=== PATIENT | male | born 1955 | race Caucasian/White ===

== ENCOUNTER 2017-04-05 18:11 | Inpatient (IN) | payer MEDICARE ==
[~2017-04-05] VITALS: Ht 177.8 cm; Wt 135.0 kg
[~2017-04-05 18:11] MED LIST: AMOX875 PO; CYCL5TAB PO
--- NOTE | 2017-04-05 18:22 | PD ---
HPI Chief Complaint: Chest Pain Time Seen by Provider: 18:20 Travel History International Travel<30 days: No Contact w/Intl Traveler<30days: No History of Present Illness HPI Patient is a 61-year-old male presents emergency Department with chest pain intermittent for the past week or so. He states he got fairly constant yesterday. States it's in the middle of his chest wrapping around his entire chest radiating down both of his arms up into his neck. He states when it comes on severe it causes him to feel short of breath and nauseous and sweaty. Cannot think of any alleviating or exacerbating factors. He states that he's never had any heart problems before. Nonsmoker, no history of high blood pressure high cholesterol but has not seen a physician some time. States he had a stress test in the past and was negative. PFSH Past Medical History Depression: No Heart Rhythm Problems: No Cancer: No Cardiac Catheterization: No Cardiovascular Problems: No High Cholesterol: No Congestive Heart Failure: No Diabetes: No Diminished Hearing: No Hepatitis: No Hiatal Hernia: No Psychiatric: No Respiratory: No Thyroid Disease: No PNEUMOCCOCAL Vaccine (Year): 2 Past Surgical History Abdominal Surgery: No Cardiac Surgery: No Cholecystectomy: Yes (09/2011) Coronary Artery Bypass Graft: No Ear Surgery: No Endocrine Surgery: No Eye Surgery: No Genitourinary Surgery: No Gynecologic Surgery: No Oral Surgery: No Pacemaker: No Thoracic Surgery: No Other Surgery: Yes (SEPTOPLASTY WITH BX) Social History Alcohol Use: No Tobacco Use: No Substance Use: No Allergies-Medications (Allergen,Severity, Reaction): Coded Allergies: Codeine (Verified Allergy, Severe, TONGUE SWELLING, 06/27/15) Reported Meds & Prescriptions Reported Meds & Active Scripts Active No Active Prescriptions or Reported Medications Review of Systems Except as stated in HPI: all other systems reviewed are Neg Physical Exam Narrative GENERAL: Well-developed, overweight but in no obvious distress. SKIN: Focused skin assessment warm/dry. HEAD: Atraumatic. Normocephalic. EYES: Pupils equal and round. No scleral icterus. No injection or drainage. ENT: No nasal bleeding or discharge. Mucous membranes pink and moist. NECK: Trachea midline. No JVD. CARDIOVASCULAR: Regular rate and rhythm. No murmur appreciated. No murmurs gallops rubs, 2+ bilateral equal pulses in all 4 extremity's. RESPIRATORY: No accessory muscle use. Clear to auscultation. Breath sounds equal bilaterally. GASTROINTESTINAL: Abdomen soft, non-tender, nondistended. Hepatic and splenic margins not palpable. MUSCULOSKELETAL: No obvious deformities. No clubbing. No cyanosis. No edema. NEUROLOGICAL: Awake and alert. No obvious cranial nerve deficits. Motor grossly within normal limits. Normal speech. PSYCHIATRIC: Appropriate mood and affect; insight and judgment normal. Data Data Last Documented VS Vital Signs Date Time Temp Pulse Resp B/P Pulse Ox O2 Delivery O2 Flow Rate FiO2 04/05/17 22:07 69 18 135/73 98 Room Air Orders Electrocardiogram (04/05/17 18:33) Ckmb (Isoenzyme) Profile (04/05/17 18:33) Complete Blood Count With Diff (04/05/17 18:33) Comprehensive Metabolic Panel (04/05/17 18:33) D-Dimer (04/05/17 18:33) Magnesium (Mg) (04/05/17 18:33) Prothrombin Time / Inr (Pt) (04/05/17 18:33) Act Partial Throm Time (Ptt) (04/05/17 18:33) Troponin I (04/05/17 18:33) Lipase (04/05/17 18:33) Chest, Single Ap (04/05/17 18:33) Ecg Monitoring (04/05/17 18:33) Iv Access Insert/Monitor (04/05/17 18:33) Oximetry (04/05/17 18:33) Oxygen Administration (04/05/17 18:33) Aspirin (Aspirin) (04/05/17 18:45) Sodium Chloride 0.9% Flush (Ns Flush) (04/05/17 18:45) CKMB (04/05/17 18:41) CKMB% (04/05/17 18:41) Nitroglycerin Sl (Nitrostat Sl) (04/05/17 19:15) Heparin Infusion RAHEEM.Q1H (04/05/17 19:06) Heparin-D5w Inj (Heparin-D5w Inj) (04/05/17 19:15) Cbc No Diff, Includes Plts (04/08/17 06:00) Act Partial Throm Time (Ptt) (04/06/17 02:06) Occult Blood (Hemoccult) Stool (04/05/17 19:06) Sodium Chlorid 0.9% 500 Ml Inj (Ns 500 M (04/05/17 19:15) Heparin Inj (Heparin Inj) (04/05/17 19:15) Ct Pulmonary Angiogram (04/05/17 ) Act Partial Throm Time (Ptt) (04/06/17 01:35) Act Partial Throm Time (Ptt) (04/06/17 07:35) Lorazepam Inj (Ativan Inj) (04/05/17 21:00) Troponin I (04/05/17 22:00) Electrocardiogram (04/05/17 22:00) Iohexol 350 Inj (Omnipaque 350 Inj) (04/05/17 22:10) Consult Cardiology (04/05/17 ) Admit Order (Ed Use Only) (04/05/17 ) Admit To Inpatient (04/05/17 ) Vital Signs (Adult) Q4H (04/05/17 22:32) Activity Oob With Assistance (04/05/17 22:32) Watcher Lookout Tower / Telemetry .CONTINUOUS (04/05/17 22:32) Diet Npo (04/06/17 Breakfast) Sodium Chloride 0.9% Flush (Ns Flush) (04/05/17 22:45) Sodium Chloride 0.9% Flush (Ns Flush) (04/06/17 09:00) Basic Metabolic Panel (Bmp) (04/06/17 06:00) Complete Blood Count With Diff (04/06/17 06:00) Creatine Kinase (Cpk) (04/06/17 01:00) Creatine Kinase (Cpk) (04/06/17 07:00) Troponin I (04/06/17 01:00) Troponin I (04/06/17 07:00) Electrocardiogram (04/06/17 01:00) Electrocardiogram (04/06/17 07:00) Naloxone Inj (Narcan Inj) (04/05/17 22:45) Inpatient Certification (04/05/17 ) Aspirin Ec (Ecotrin Ec) (04/06/17 09:00) Nitroglycerin Sl (Nitrostat Sl) (04/05/17 22:45) Labs Laboratory Tests Test 04/05/17 04/05/17 18:41 22:00 White Blood Count 8.0 TH/MM3 Red Blood Count 5.41 MIL/MM3 Hemoglobin 14.8 GM/DL Hematocrit 44.0 % Mean Corpuscular Volume 81.4 FL Mean Corpuscular Hemoglobin 27.5 PG Mean Corpuscular Hemoglobin 33.7 % Concent Red Cell Distribution Width 13.1 % Platelet Count 190 TH/MM3 Mean Platelet Volume 7.8 FL Neutrophils (%) (Auto) 60.0 % Lymphocytes (%) (Auto) 28.2 % Monocytes (%) (Auto) 8.6 % Eosinophils (%) (Auto) 2.0 % Basophils (%) (Auto) 1.2 % Neutrophils # (Auto) 4.8 TH/MM3 Lymphocytes # (Auto) 2.2 TH/MM3 Monocytes # (Auto) 0.7 TH/MM3 Eosinophils # (Auto) 0.2 TH/MM3 Basophils # (Auto) 0.1 TH/MM3 CBC Comment DIFF FINAL Differential Comment Prothrombin Time 10.4 SEC Prothromb Time International 0.9 RATIO Ratio Activated Partial 28.0 SEC Thromboplast Time D-Dimer Quantitative (PE/DVT) 0.77 MG/L FEU Sodium Level 138 MEQ/L Potassium Level 4.1 MEQ/L Chloride Level 104 MEQ/L Carbon Dioxide Level 25.5 MEQ/L Anion Gap 9 MEQ/L Blood Urea Nitrogen 21 MG/DL Creatinine 1.50 MG/DL Estimat Glomerular Filtration 48 ML/MIN Rate Random Glucose 145 MG/DL Calcium Level 8.5 MG/DL Magnesium Level 2.0 MG/DL Total Bilirubin 0.2 MG/DL Aspartate Amino Transf 28 U/L (AST/SGOT) Alanine Aminotransferase 34 U/L (ALT/SGPT) Alkaline Phosphatase 116 U/L Total Creatine Kinase 158 U/L Creatine Kinase MB 3.8 NG/ML Troponin I 0.29 NG/ML 0.42 NG/ML Total Protein 7.3 GM/DL Albumin 3.4 GM/DL Lipase 98 U/L [facility] Medical Decision Making Medical Screen Exam Complete: Yes Emergency Medical Condition: Yes Interpretation(s) EKG shows normal sinus rhythm borderline left axis deviation, normal R-wave progression. No concerning ST segment changes. Intervals within normal limits. The patient does have Q waves in 3 and aVF. This borderline EKG. Differential Diagnosis ACS, IL, PE. Narrative Course Patient roomed emergency department, fairly classic presentation for ACS. Patient troponin elevated to 0.29. Given his classic presentation as well as elevation in troponin this is criteria for heparinization. Patient is low risk for heparinization and will proceed. He was given aspirin, nitroglycerin. Discussed with him that he needs to be admitted to hospital further evaluation of this pain and his elevation of his cardiac marker. Initially reluctant he is ultimately was agreeable. Patient also states that he recently took a trip from [place] in a car approximately 3 weeks ago. Given his shortness of breath symptoms a d-dimer is ordered. We'll proceed with CT PE protocol as this is positive. Creatinine elevation is minimal, I believe the benefits outweigh risks, he was given 500 cc bolus. Nitroglycerin subungual 2 and his chest pain is completely resolved. Is also given a full dose aspirin. Patient was sent for CT PE protocol states she has a history of claustrophobia and is unwilling to proceed with the test. At this time the patient is being treated for presumptive PE. I discussed with him that I certainly could not exclude this is a diagnosis given his lab tests and his history. The patient was discussed with cardiology on-call who agrees with the patient does need a PET exclusion prior to catheterization. I discussed my concerns with the paster operator on-call and discussed with the patient will likely need catheterization paster operator agrees for transfer up to the [facility] hospital. Ultimately the patient was given some Ativan was able to proceed with a CT PE protocol which was negative for PE. The patient's repeat troponin and repeat EKG were done in the emergency department and troponin has increased 0.49. EKG does show no change from the previous EKG. The patient is chest pain-free after nitroglycerin. Discussed with him need for admission to the hospital and he is agreeable. The patient will be transferred [facility] hospital. Patient discussed with Dr. Merritt for admission, patient is stable for floor. Diagnosis Primary Impression: ACS (acute coronary syndrome) Admitting Information Admitting Physician Requests: Admit Scripts No Active Prescriptions or Reported Meds Condition: Stable Goran Madison MD Apr 05, 2017 18:22
[2017-04-05 18:37] VITALS: O2SAT 98
[2017-04-05 18:45] LABS: AUTOMATED NEUTROPHIL # 4.8 TH/MM3 (1.8-7.7); BASOPHIL # 0.1 TH/MM3 (0-0.2); BASOPHIL % 1.2 % (0.0-2.0); EOSINOPHIL # 0.2 TH/MM3 (0-0.4); HEMO FLAGS DIFF FINAL; LYMPH % 28.2 % (9.0-44.0); LYMPHOCYTE # 2.2 TH/MM3 (1.0-4.8); MEAN CELL VOLUME 81.4 FL (80.0-100.0); MEAN CORPUSCULAR HEMOGLOBIN 27.5 PG (27.0-34.0); MEAN CORPUSCULAR HGB CONC 33.7 % (32.0-36.0); MONO % 8.6 % (0.0-8.0); PLATELET COUNT 190 TH/MM3 (150-450); RED BLOOD COUNT 5.41 MIL/MM3 (4.50-5.90); RED CELL DISTRIBUTION WIDTH 13.1 % (11.6-17.2)
[2017-04-05] MEDS ORDERED: SODIUM CHLORIDE 0.9% FLUSH 10 ML FLUSH IVF PRN (18:45)
[2017-04-05] MEDS ORDERED: ASPIRIN 325 MG TAB PO ONE (18:45)
[2017-04-05 18:53] LABS: CHLORIDE 104 MEQ/L (98-107); POTASSIUM 4.1 MEQ/L (3.5-5.1); SODIUM (NA) 138 MEQ/L (136-145)
[2017-04-05 18:57] LABS: ANION GAP 9 MEQ/L (5-15); BICARBONATE 25.5 MEQ/L (21.0-32.0); BLOOD UREA NITROGEN 21 MG/DL (7-18)
[2017-04-05 19:00] LABS: ALT (GPT) 34 U/L (12-78); AST (GOT) 28 U/L (15-37); GLOMERULAR FILTRATION RATE 48 ML/MIN (>89)
[2017-04-05 19:01] LABS: TOTAL BILIRUBIN ADULT 0.2 MG/DL (0.2-1.0)
[2017-04-05 19:03] LABS: ALKALINE PHOSPHATASE 116 U/L (45-117); CREATINE KINASE 158 U/L (39-308)
[2017-04-05 19:15] LABS: CKMB 3.8 NG/ML (0.5-3.6)
[2017-04-05] MEDS ORDERED: SODIUM CHLORID 0.9% 500 ML INJ 500 ML IV ONE (19:15)
[2017-04-05] MEDS ORDERED: HEPARIN SODIUM - IV 10,000 UNITS/10 ML VIAL IV ONE (19:15)
[2017-04-05 19:17] LABS: INTERNATIONAL NORMALIZED RATIO 0.9 RATIO; PROTHROMBIN TIME - PATIENT 10.4 SEC (9.8-11.6)
--- NOTE | 2017-04-05 19:20 | RADRPT ---
EXAM DATE/TIME: 04/05/2017 18:50 [facility] COMPARISON: No previous studies available for comparison. INDICATIONS : Chest pain. MEDICAL HISTORY : Asthma. SURGICAL HISTORY : None. ENCOUNTER: Initial ACUITY: 1 week PAIN SCORE: 8/10 LOCATION: Bilateral chest FINDINGS: A single view of the chest demonstrates the lungs to be symmetrically aerated without evidence of mas s, infiltrate or effusion. The cardiomediastinal contours are unremarkable. Osseous structures are intact. CONCLUSION: No acute disease. Jaden West MD on April 05, 2017 at 19:18 Board Certified Radiologist. This report was verified electronically.
[2017-04-05] MEDS: NITROGLYCERIN 0.4 MG SL 25 TABS/BTL SL SCH ×3 (19:25→19:48)
[2017-04-05] MEDS: HEPARIN-D5W 25,000 U/250 ML 250 ML IV SCH (19:39)
[2017-04-05 19:58] VITALS: BP 118/68; PULSE 83; RESP 18; O2SAT 97
[2017-04-05] MEDS ORDERED: LORazepam 2 MG/ML VIAL IV PUSH ONE (21:00)
[2017-04-05 22:07] VITALS: BP_SYST 135; BP_SYST 35; BP_DIAS 73; PULSE 69; RESP 18; O2SAT 98
[2017-04-05] MEDS ORDERED: IOHEXOL 350 MG/ML 10 ML VIAL (for RAD DIAG) IV ONE (22:10)
--- NOTE | 2017-04-05 22:15 | RADRPT ---
EXAM DATE/TIME: 04/05/2017 21:45 [facility] COMPARISON: No previous studies available for comparison. INDICATIONS : Chest pain. IV CONTRAST: 65 cc Omnipaque 350 (iohexol) IV RADIATION DOSE: 21.71 CTDIvol (mGy) MEDICAL HISTORY : None SURGICAL HISTORY : None. ENCOUNTER: Initial ACUITY: 1 day PAIN SCALE: 8/10 LOCATION: chest TECHNIQUE: Volumetric scanning of the chest was performed using a pulmonary embolism protocol MIP images were re constructed. Using automated exposure control and adjustment of the mA and/or kV according to patien t size, radiation dose was kept as low as reasonably achievable to obtain optimal diagnostic quality images. DICOM format image data is available electronically for review and comparison. Follow-up recommendations for incidentally detected pulmonary nodules are based at a minimum on nodul e size and patient risk factors according to Fleischner Society Guidelines. FINDINGS: PULMONARY ARTERIES: No filling defects are seen in the pulmonary arteries through the segmental level. LUNGS: There is no consolidation or pneumothorax . No concerning pulmonary nodule is visualized. PLEURAE: There is no pleural thickening or pleural effusion. MEDIASTINUM: There is good visualization of the great vessels of the middle mediastinum. No evidence of mediastin al or hilar adenopathy/mass. Mild coronary calcifications. MUSCULOSKELETAL: Within normal limits for patient age. MISCELLANEOUS: The visualized upper abdominal organs demonstrate no acute abnormality. CONCLUSION: 1. Negative for pulmonary embolus. Minimal basal atelectasis or scarring. Mild coronary calcification s. Calcified granulomata in the lungs. Jaden West MD on April 05, 2017 at 22:09 Board Certified Radiologist. This report was verified electronically.
[2017-04-05] MEDS ORDERED: NALOXONE HCL 0.4 MG/ML AMP IV PRN (22:45)
[2017-04-05] MEDS ORDERED: SODIUM CHLORIDE 0.9% FLUSH 10 ML FLUSH IV FLUSH PRN (22:45)
[2017-04-05] MEDS ORDERED: NITROGLYCERIN 0.4 MG SL 25 TABS/BTL SL PRN (22:45)
[2017-04-06] VITALS (11 sets, daily range): BP systolic 117–153; BP diastolic 55–84; PULSE 62–74; RESP 16–19; TEMP 95.7–97.8; O2SAT 96–99
[2017-04-06 01:23] LABS: APTT (PATIENT) 44.7 SEC (24.3-30.1)
--- NOTE | 2017-04-06 02:43 | HHI.HP ---
[facility] Service [facility] Primary Care Physician No Primary Care Physician Admission Diagnosis Acute Cornoary Syndrome Diagnoses: (1) NSTEMI (non-ST elevated myocardial infarction) (2) Unstable angina Chief Complaint: Severe chest pain Travel History International Travel<30 Days: No Contact w/Intl Traveler <30 Da: No Traveled to Known Affected Are: No History of Present Illness Written by Joann Neuamnn, acting as scribe for Dr. Archibald on 04/06/17 at 02:40. The patient was transferred from [place] for management of NSTEMI. Symptoms: reports severe chest pain: felt like "my chest was filled up with air ", radiated down both arms and up left side of neck and into jaw. Accompanied by palpitations, diaphoresis, headache, and nausea without vomiting. The patient said he felt like he was "smothered". He has been having chest pain at least once a day for about 1 - 2 weeks but it has progressively worsened. He was sitting down today when symptoms started. He said he felt near-syncopal today when pain was occurring. The patient recently drove to [place] but stopped every few hours to walk around. Denies recent fever, nausea, vomiting, diarrhea, black or red stool, hematuria, or dysuria. Review of Systems Except as stated in HPI: all other systems reviewed are Neg Past Family Social History Past Medical History Asthma Rheumatoid Arthritis - off methotrexate for 6 months because of adverse effects Gouty Arthritis Osteoarthritis Denies hypertension, diabetes mellitus, CAD, CHF, atrial fibrillation, denies liver or kidney problems, DVT, PE, CVA, seizures, thyroid problems, or cancers. Past Surgical History Knee surgery Back surgery Rhinoplasty Shoulder surgery Hand surgery Toe surgery . Reported Medications Reported Meds & Active Scripts Active No Active Prescriptions or Reported Medications . Allergies: Coded Allergies: Codeine (Verified Allergy, Severe, TONGUE SWELLING, 06/27/15) Active Ordered Medications Current Medications Aspirin (Aspirin) 325 mg ONCE ONCE PO Last administered on 04/05/17t 19:13; Start 04/05/17 at 18:45; Stop 04/05/17 at 18:46; Status DC Sodium Chloride (NS Flush) 2 ml UNSCH PRN IVF FLUSH AFTER USING IV ACCESS; Start 04/05/17 at 18:45; Stop 04/05/17 at 22:40; Status DC Nitroglycerin 0.4 mg 0.4 mg Q5M SL Last administered on 04/05/17 19:48; Start 04/05/17 at 19:15; Stop 04/05/17 at 19:36; Status DC Heparin Sodium/ Dextrose 250 ml @ 0 mls/hr TITRATE IV Last administered on 19:39; Start 04/05/17 at 19:15 Sodium Chloride (NS 500 ml Inj) 500 ml @ 500 mls/hr BOLUS ONCE IV Last administered on 04/05/17 19:38; Start 04/05/17 at 19:15; Stop 04/05/17 at 20:14; Status DC Heparin Sodium (Porcine) (Heparin Inj) 6,000 units ONCE ONCE IV Last administered on 04/05/17 19:19; Start 04/05/17 at 19:15; Stop 04/05/17 at 19:36; Status DC Lorazepam (Ativan Inj) 1 mg ONCE ONCE IV PUSH Last administered on 04/05/17 21 :23; Start 04/05/17 at 21:00; Stop 04/05/17 at 21:02; Status DC Iohexol (Omnipaque 350 Inj) 65 ml STK-MED ONCE IV Last administered on 22:10; Start 04/05/17 at 22:10; Stop 04/05/17 at 22:11; Status DC Sodium Chloride (NS Flush) 2 ml UNSCH PRN IV FLUSH FLUSH AFTER USING IV ACCESS ; Start 04/05/17 at 22:45 Sodium Chloride (NS Flush) 2 ml BID IV FLUSH ; Start 04/06/17 at 09:00 Naloxone HCl (Narcan Inj) 0.4 mg UNSCH PRN IV SEE LABEL COMMENTS; Start at 22:45 Aspirin (Ecotrin Ec) 325 mg DAILY PO ; Start 04/06/17 at 09:00 Nitroglycerin (Nitrostat Sl) 0.4 mg Q5M PRN SL CHEST PAIN; Start 04/05/17 at 22: 45 Family History No family history of CAD/CO that the patient is aware of Social History Tobacco: denies, never smoked Alcohol: social Illicit Drugs: denies . Physical Exam Vital Signs Vital Signs Date Time Temp Pulse Resp B/P Pulse Ox O2 Delivery O2 Flow Rate FiO2 04/06/17 01:24 70 16 97 04/06/17 00:31 62 18 145/74 96 Room Air 04/05/17 22:07 69 18 135/73 98 Room Air 04/05/17 19:58 83 18 118/68 97 Room Air 04/05/17 19:10 99 Room Air 04/05/17 18:37 98 Room Air Physical Exam GENERAL: This is a well-nourished, well-developed patient, in no apparent distress. SKIN: No rashes, ecchymoses or lesions. Cool and dry. HEAD: Atraumatic. Normocephalic. EYES: No scleral icterus. No injection or drainage. ENT: Nose without bleeding, purulent drainage. NECK: Trachea midline. No JVD or lymphadenopathy. CARDIOVASCULAR: Regular rate and rhythm without murmurs, gallops, or rubs. RESPIRATORY: Clear to auscultation. Breath sounds equal bilaterally. No wheezes , rales, or rhonchi. GASTROINTESTINAL: Abdomen soft, non-tender, nondistended. No guarding. MUSCULOSKELETAL: Extremities without clubbing, cyanosis, or edema. No calf tenderness. NEUROLOGICAL: Awake and alert. Motor and sensory grossly within normal limits. Normal speech. . Laboratory Laboratory Tests Test 04/05/17 04/05/17 04/06/17 18:41 22:00 01:05 White Blood Count 8.0 Red Blood Count 5.41 Hemoglobin 14.8 Hematocrit 44.0 Mean Corpuscular Volume 81.4 Mean Corpuscular Hemoglobin 27.5 Mean Corpuscular Hemoglobin 33.7 Concent Red Cell Distribution Width 13.1 Platelet Count 190 Mean Platelet Volume 7.8 Neutrophils (%) (Auto) 60.0 Lymphocytes (%) (Auto) 28.2 Monocytes (%) (Auto) 8.6 Eosinophils (%) (Auto) 2.0 Basophils (%) (Auto) 1.2 Neutrophils # (Auto) 4.8 Lymphocytes # (Auto) 2.2 Monocytes # (Auto) 0.7 Eosinophils # (Auto) 0.2 Basophils # (Auto) 0.1 CBC Comment DIFF FINAL Differential Comment Prothrombin Time 10.4 Prothromb Time International 0.9 Ratio Activated Partial 28.0 44.7 Thromboplast Time D-Dimer Quantitative (PE/DVT) 0.77 Sodium Level 138 Potassium Level 4.1 Chloride Level 104 Carbon Dioxide Level 25.5 Anion Gap 9 Blood Urea Nitrogen 21 Creatinine 1.50 Estimat Glomerular Filtration 48 Rate Random Glucose 145 Calcium Level 8.5 Magnesium Level 2.0 Total Bilirubin 0.2 Aspartate Amino Transf 28 (AST/SGOT) Alanine Aminotransferase 34 (ALT/SGPT) Alkaline Phosphatase 116 Total Creatine Kinase 158 119 Creatine Kinase MB 3.8 Troponin I 0.29 0.42 0.46 Total Protein 7.3 Albumin 3.4 Lipase 98 Result Diagram: 04/05/17 1841 04/05/17 1841 Imaging Last Impressions Chest X-Ray 04/05/17 1833 Signed Impressions: Service Date/Time: Wednesday, April 05, 2017 18:50 - CONCLUSION: No acute disease. Jaden West MD CT Angiography 04/05/17 0000 Signed Impressions: Service Date/Time: Wednesday, April 05, 2017 21:45 - CONCLUSION: 1. Negative for pulmonary embolus. Minimal basal atelectasis or scarring. Mild coronary calcifications. Calcified granulomata in the lungs. Jaden West MD Assessment and Plan Problem List: (1) Unstable angina ICD Code: I20.0 Status: Acute (2) NSTEMI (non-ST elevated myocardial infarction) ICD Code: I21.4 Status: Acute Assessment and Plan 61 y/o with no cardiac history presented to the ED for evaluation of chest pain: NSTEMI Unstable angina - CT pulmonary angiogram negative for PE. Milnial basal atelectasis or scarring noted. Mild coronary calcifications and calcified granulomata in lungs. - Heparin drip - Nitroglycerin 0.4 mg sublingual q5min PRN chest pain - Serial cardiac enzymes and EKGs showed elevated cardiac enzymes trending up and repeat pending this morning - follow results - initial 12-lead EKG personally reviewed with no ischemic changes and sinus rhythm - consult cardiology - assistance appreciated - diet NPO - lipid profile - hba1c Anxiety - Xanax 0.125 mg x one dose PRN anxiety DVT prophylaxis - on heparin drip This note was transcribed by john [Joann Neumann]. I, Dr. Melissa Archibald personally performed the history, physical exam, and medical decision making; and confirmed the accuracy of the information in the transcribed note. Authenticated by Dr. Melissa Archibald on 04/06/17 at 02:40. Discussed Condition With ER physician and patient . Physician Certification 2 Midnight Certification Type: Admission for Inpatient Services Order for Inpatient Services The services are ordered in accordance with Medicare regulations or non- Medicare payer requirements, as applicable. In the case of services not specified as inpatient-only, they are appropriately provided as inpatient services in accordance with the 2-midnight benchmark. Estimated LOS (days): 3 days is the estimated time the patient will need to remain in the hospital, assuming treatment plan goals are met and no additional complications. Post-Hospital Plan: Home Joann Neumann Apr 06, 2017 02:42 Melissa Archibald MD Apr 06, 2017 08:13
[2017-04-06] MEDS ORDERED: ALPRAZolam 0.25 MG TAB PO PRN (02:45)
[2017-04-06 08:24] LABS: AUTOMATED NEUTROPHIL # 4.2 TH/MM3 (1.8-7.7); BASOPHIL % 0.3 % (0.0-2.0); EOSINOPHIL # 0.2 TH/MM3 (0-0.4); EOSINOPHIL % 2.7 % (0.0-4.0); HEMATOCRIT 43.6 % (39.0-51.0); HEMO FLAGS DIFF FINAL; LYMPH % 28.2 % (9.0-44.0); LYMPHOCYTE # 1.9 TH/MM3 (1.0-4.8); MEAN CORPUSCULAR HEMOGLOBIN 27.9 PG (27.0-34.0); MEAN CORPUSCULAR HGB CONC 33.2 % (32.0-36.0); MONO % 8.4 % (0.0-8.0); NEUT % 60.4 % (16.0-70.0); PLATELET COUNT 166 TH/MM3 (150-450); RED BLOOD COUNT 5.19 MIL/MM3 (4.50-5.90); RED CELL DISTRIBUTION WIDTH 13.9 % (11.6-17.2); WHITE BLOOD COUNT 6.9 TH/MM3 (4.0-11.0)
[2017-04-06 08:31] LABS: APTT (PATIENT) 33.5 SEC (24.3-30.1)
[2017-04-06] MEDS ORDERED: NITROGLYCERIN 0.4 MG SL 25 TABS/BTL SL ONE (08:32)
[2017-04-06] MEDS: SODIUM CHLORIDE 0.9% FLUSH 10 ML FLUSH IV FLUSH SCH ×2 (08:37→21:00)
[2017-04-06 08:41] LABS: BICARBONATE 30.9 MEQ/L (21.0-32.0); POTASSIUM 3.9 MEQ/L (3.5-5.1)
[2017-04-06] MEDS ORDERED: ASPIRIN EC 325 MG TABEC PO SCH (09:00)
[2017-04-06] MEDS: SODIUM CHLOR 0.9% 1000 ML INJ 1,000 ML IV SCH (09:30)
[2017-04-06] MEDS ORDERED: NITROGLYCERIN 2% OINT 1 GM PACKET TOPICAL SCH (10:00)
[2017-04-06] MEDS ORDERED: ATORVASTATIN 80 MG TAB PO ONE (10:00)
[2017-04-06] MEDS ORDERED: SENNOSIDES 8.6 MG TAB PO PRN (11:30)
[2017-04-06] MEDS ORDERED: LACTULOSE SYRUP 20 GM/30 ML CUP PO PRN (11:30)
[2017-04-06] MEDS ORDERED: ONDANSETRON HCL 4 MG/2 ML VIAL IVP PRN (11:30)
[2017-04-06] MEDS ORDERED: MAGNESIUM HYDROXIDE SUSP 30 ML CUP PO PRN (11:30)
--- NOTE | 2017-04-06 11:32 | EKG ---
Date Performed: 04/05/2017 Time Performed: 18:20:40 PTAGE: 61 years EKG: Sinus rhythm NORMAL ECG Compared to prior tracing no significant change PREVIOUS TRACING : 06/27/2015 09.33 DOCTOR: Eddy Porras Interpretating Date/Time 04/06/2017 11:30:02
--- NOTE | 2017-04-06 11:38 | HHI.PR ---
Subjective Remarks F/U NSTEMI. CP relieved with sublinguanitroglycerin currently on heparin drip and for cardiac catheterization later today. Seen with family. Discussed with RN. Objective Vitals Vital Signs Date Time Temp Pulse Resp B/P Pulse Ox O2 Delivery O2 Flow Rate FiO2 04/06/17 08:45 119/66 04/06/17 07:30 95.7 72 19 135/65 98 04/06/17 04:30 96.5 70 17 117/55 99 04/06/17 01:50 96.3 73 16 143/80 97 04/06/17 01:24 70 16 97 04/06/17 00:31 62 18 145/74 96 Room Air 04/05/17 22:07 69 18 135/73 98 Room Air 04/05/17 19:58 83 18 118/68 97 Room Air 04/05/17 19:10 99 Room Air 04/05/17 18:37 98 Room Air I/O 04/05/17 04/05/17 04/05/17 04/06/17 04/06/17 04/06/17 07:00 15:00 23:00 07:00 15:00 23:00 Intake Total 500 ml Output Total 500 ml Balance 0 ml Intake Oral 0 ml IV Total 500 ml Output Urine Total 500 ml # Voids 1 # Bowel Movements 0 Result Diagram: 04/06/17 0754 04/06/17 0754 Imaging Last Impressions Chest X-Ray 04/05/17 1833 Signed Impressions: Service Date/Time: Wednesday, April 05, 2017 18:50 - CONCLUSION: No acute disease. Jaden West MD CT Angiography 04/05/17 0000 Signed Impressions: Service Date/Time: Wednesday, April 05, 2017 21:45 - CONCLUSION: 1. Negative for pulmonary embolus. Minimal basal atelectasis or scarring. Mild coronary calcifications. Calcified granulomata in the lungs. Jaden West MD Objective Remarks GENERAL: Well-developed, obese in no distress SKIN: Warm and dry. HEAD: Atraumatic. Normocephalic. EYES: Pupils equal and round. No scleral icterus. No injection or drainage. ENT: No nasal bleeding or discharge. Mucous membranes pink and moist. NECK: Trachea midline. No JVD. CARDIOVASCULAR: Regular rate and rhythm. RESPIRATORY: No accessory muscle use. Clear to auscultation. Breath sounds equal bilaterally. GASTROINTESTINAL: Abdomen soft, non-tender, nondistended. MUSCULOSKELETAL: Extremities without clubbing, cyanosis but with bilateral lower extremity pitting edema. No obvious deformities. NEUROLOGICAL: Awake and alert. No obvious cranial nerve deficits. Motor grossly within normal limits. Five out of 5 muscle strength in the arms and legs. Normal speech. PSYCHIATRIC: Appropriate mood and affect; insight and judgment normal. A/P Problem List: (1) NSTEMI (non-ST elevated myocardial infarction) ICD Code: I21.4 Status: Acute Assessment and Plan 61 y/o with no cardiac history presented to the ED for evaluation of chest pain: NSTEMI Unstable angina - CT pulmonary angiogram negative for PE. Minimal basal atelectasis or scarring noted. Mild coronary calcifications and calcified granulomata in lungs. - Heparin drip - Nitroglycerin 0.4 mg sublingual q5min PRN chest pain. Agree with Nitropaste and start Lopressor. - 12-lead EKG personally reviewed with no ischemic changes and sinus rhythm - For cardiac catheterization - diet NPO - Follow up lipid profile - Follow up ha1c - Risk factor modification - Check EF patient with bilateral lower extremity edema Anxiety - Xanax 0.125 mg x one dose PRN anxiety Chronic medical conditions of asthma, rheumatoid arthritis, gouty and osteoarthritis DVT prophylaxis - on heparin drip Connor Gurrola MD Apr 06, 2017 11:38
--- NOTE | 2017-04-06 11:45 | EKG ---
Date Performed: 04/06/2017 Time Performed: 01:05:25 PTAGE: 61 years EKG: Normal Sinus rhythm Possible old inferior infarct NORMAL ECG PREVIOUS TRACING : 04/05/2017 22.07 No change from the prior tracing. DOCTOR: Eddy Porras Interpretating Date/Time 04/06/2017 11:45:34
--- NOTE | 2017-04-06 11:45 | EKG ---
Date Performed: 04/05/2017 Time Performed: 22:07:37 PTAGE: 61 years EKG: Normal Sinus rhythm Possible old inferior infarct PREVIOUS TRACING : 04/05/2017 18.20 DOCTOR: Eddy Porras Interpretating Date/Time 04/06/2017 11:45:09
[2017-04-06] MEDS: ACETAMINOPHEN 325 MG TAB PO PRN ×2 (13:31→21:35)
[2017-04-06 13:33] LABS: HDL CHOLESTEROL 42.4 MG/DL (40.0-60.0); LDL CHOLESTEROL 172 MG/DL (0-99)
--- NOTE | 2017-04-06 14:04 | MB ---
cc: GLENN LEHMAN DATE OF CONSULTATION 04/06/2017 REASON FOR CONSULTATION Mr. Burch is a 61-year-old white male who was transferred from [facility] for a non-ST elevation myocardial function. He developed severe substernal chest discomfort radiating down both arms left side of the neck and jaw. He also has had palpitations, diaphoresis and nausea. He felt short of breath. He has recurrent pain and swelling with relief with sublingual nitroglycerin. He has had elevated cardiac enzymes consistent with non-ST elevation myocardial function. PAST MEDICAL HISTORY Positive for: 1. Osteoarthritis 2. Gout 3. Rheumatoid arthritis 4. No history of hypertension, diabetes mellitus, coronary disease, congestive heart failure, atrial fibrillation or CVA. PAST SURGICAL HISTORY 1. History of knee surgery 2. Back surgery 3. Rhinoplasty 4. Shoulder surgery 5. Hand surgery 6. Toe surgery MEDICATIONS Include 1. Aspirin 2. Nitroglycerin 3. Heparin ALLERGIES CODEINE SOCIAL HISTORY The patient does not smoke. He drinks alcohol socially. FAMILY HISTORY Negative for heart disease. REVIEW OF SYSTEMS Otherwise negative. PHYSICAL EXAMINATION Blood pressure 119/56, pulse 72 and regular. HEENT: Negative. NECK: 2+ carotid upstrokes. No bruits. LUNGS: Clear. HEART: Regular with no murmur, gallop or rub. ABDOMEN: Soft, no bruits. EXTREMITIES: Negative edema. 2+ distal pulses. NEUROLOGIC: Grossly intact. EKG was reviewed and showed normal sinus rhythm, left axis and inferior Q-waves. No acute changes. LABORATORY DATA Hemoglobin 14.5, potassium 3.9, creatinine 1.1, troponin 0.29, 0.42, 0.46 and 0.26, CK 158, 119 and 109. DIAGNOSIS 1. Bgc-LB-wgcogzopq myocardial function 2. Rheumatoid arthritis 3. Asthma DISPOSITION Mr. Burch has been ruled in for myocardial infarction by enzymes. He will be scheduled for cardiac catheterization and coronary intervention if necessary today. He understands the risks and benefits, and wishes to proceed. We will continue therapy with heparin, nitroglycerin and aspirin. MD EMETERIO Bruce/NORTH /9:43 AM /12:24 PM [email or web address]
[2017-04-06 16:33] LABS: APTT (PATIENT) 37.1 SEC (24.3-30.1)
[2017-04-06] MEDS: NITROGLYCERIN 2% OINT 1 GM PACKET TOPICAL SCH ×2 (16:42→21:39)
[2017-04-06] MEDS ORDERED: NITROGLYCERIN INJ 5 ML ONE (16:49)
[2017-04-06] MEDS ORDERED: HEPARIN-NS/PF INJ 500 ML ONE (16:49)
[2017-04-06] MEDS ORDERED: MIDAZOLAM HCL 2 MG/2 ML VIAL ONE ×2 (16:50→17:53)
[2017-04-06 16:53] LABS: HEMOGLOBIN A1b 1.9 %; HEMOGLOBIN Ao 84.7 %; HEMOGLOBIN P3 3.9 %
[2017-04-06] MEDS: HEPARIN-D5W 25,000 U/250 ML 250 ML IV SCH (17:20)
[2017-04-06] MEDS ORDERED: IOHEXOL 350 MG/ML 50 ML BTL (for Cath Lab) OTHER ONE (17:44)
[2017-04-06] MEDS ORDERED: IOHEXOL 350 MG/ML 100 ML BTL (for Cath Lab) OTHER ONE (17:44)
[2017-04-06] MEDS ORDERED: HEPARIN-D5W 25,000 U/250 ML 250 ML ONE (18:10)
--- NOTE | 2017-04-06 18:29 | CATHPROC ---
[facility] HIS Report Study Information Study Number Admission Scheduled Start Study Start [id number] Apr 05 2017 10:39PM 04/06/2017 Apr 06 2017 4:53PM [facility] Cardiac Catheterization Admit Source Facility Department Emergency department [facility] - Rn Prior Authorization Physician and Clinical Staff Initial Jeremias Cardoza Wheelchair Van Operator First Responder Caitlyn Veloz BSRN Recorder Gina Ocasio,RT(R) Recorder Chapis Prescott,RT(R) (BS) Scrub Evens Ron,RT(R) Procedures Performed Procedure Location (Site) Vessel Name Angiogram LV LV Ventricle Coronary Angiograms LCA Left Coronary Coronary Angiograms RCA Right Coronary Coronary Angiograms ACE ACE L Heart Cath Equipment Time Plant Operator Control Room Operator Description Size Mfg Part Number Used/Scraped TRANSDUCER, TERESSA [id number] 17:32 appAttach LLAMAS * Used W/STOCKCOCK *[id number] *[id number] *[id number] *[id number] 18:06 DAIG/ST. GIA MEDICAL ANGIOSEAL, FR6 VIP FR 6 Used *[id number] 17:32 SoftoCoupon INDUSTRIES PACK, CCL CUSTOM * Used *[id number] 17:32 SoftoCoupon PACER PEN, SKIN DUAL W/ RULER * Used *[id number] 17:32 Veebeam WIRE, 3MMJ .035 180CM 180CM Used *[id number] PROBE COVER, STERILE [id number] 17:32 SavingStar MEDICAL * Used ULTRASOUND W/ GEL *[id number] 17:32 NAMIC MANIFOLD, 4 PORT * Used *[id number] 17:32 NAMIC TUBING, HIGH PRESSURE 48" 48" Used *[id number] 17:32 NYCOMED OMNIPAQUE, 350 MG, 150ML 150ML [id number] Used [id number] 17:32 LESTER MEDICAL BLANKET,WARM AIR CCL * Used *[id number] 17:32 TERUMO MEDICAL SHEATH, FR5 TERUMO (10CM) FR 5 Used *[id number] History: Current Medications Medication Dosage/Unit Route Frequency Last Date/Time Taken ASA 325 mg Oral 04/06/2017 NTG SL HEPARIN LIPITOR 80 mg 04/06/2017 NTG Patch History: Allergies Allergy Reaction Codeine TONGUE SWELLING History: Risk Factors Family History of Hypertension Dyslipidemia Previous DC Previous Heart Failure Premature CAD No No No No No Prior Valve Prior PCI Prior CABG Surgery No No No Cerebrovascular Peripheral Artery Chronic Lung On Dialysis Diabetes Disease Disease Disease No No No No No History: Symptoms/Diagnosis Selection Items Chest pain Palpitations History: Stress Tests Stress or Imaging Studies Performed No History: Other Current Smoker No Labs Hgb (g/dl) Hct (%) RBC (MIL/MM3) WBC (l/cumm) Platelets (thousands) 11.60-17.00 35.00-51.00 4.00-5.90 4.00-11.00 150.00-450.00 14.5 43.6 5.1 6.9 190 Glucose (mg/dl) BUN (mg/dl) Creatinine (mg/dl) BUN:Creatinine (1:x) 74.00-106.00 7.00-18.00 0.50-1.30 10.00-20.00 102 16 1.1 14.5 Na (meq/l) K (meq/l) Cl (meq/l) 136.00-145.00 3.50-5.10 98.00-107.00 138 4.1 104 INR (PTT:PT) 0.90-1.10 0.9 Troponin I (ng/ml) CPK-MB (ng/ML) 0.02-0.05 0.50-3.60 0.26 Not Drawn Medication Medication Total Dose (Bolus/Oral) Medication Total Dosage/Unit 1% XYLOCAINE 20 mL FENTANYL 100 mcg VERSED 3 mg Medications (Bolus/Oral) Medication Time Given Dosage/Unit Administered By Reason VERSED 04/06/2017 5:40:18 PM 2 mg Rittenour, Caitlyn 2 mg VERSED given in lab by Caitlyn Veloz BSRN in Right Antecubital via Peripheral IV. FENTANYL 04/06/2017 5:40:19 PM 50 mcg Rittenour, Caitlyn 50 mcg FENTANYL given in lab by Caitlyn Veloz BSRN in Right Antecubital via Peripheral IV. FENTANYL 04/06/2017 5:45:10 PM 50 mcg Rittenour, Caitlyn 50 mcg FENTANYL given in lab by Caitlyn Veloz BSRN in Right Antecubital via Peripheral IV. 1% XYLOCAINE 04/06/2017 5:45:21 PM 20 mL Quadrat, [place] 20 mL 1% XYLOCAINE given in lab by Jeremias Miller in Right Groin via Subcutaneous. VERSED 04/06/2017 5:54:39 PM 1 mg Caitlyn Veloz 1 mg VERSED given in lab by Caitlyn Veloz BSRN in Right Antecubital via Peripheral IV. Medication (Drip) Medication Time Given Dosage/Unit Concentration/Unit Diluent (ml) Solution HEPARIN DRIP 04/06/2017 6:13:29 PM 1000 units/hr 74590 units 250 D5W 1000 units/hr HEPARIN DRIP given in lab by Caitlyn Veloz BSRN in Right Antecubital via Peripheral IV. Pump/Drip Flow = 10 ml/hr [place] [address] units in 250 ml. HEPARIN DRIP STOPPED 04/06/2017 5:00:24 PM 0 units/hr 0 0 units/hr HEPARIN DRIP STOPPED given by Caitlyn Veloz BSRN. Pump/Drip Flow = 0 ml/hr using [Solu tion Name]. IV Solutions 04/06/2017 5:26:31 PM 0 mL (IV) 500 NaCl .9 IV Solutions given in lab by Caitlyn Veloz BSRN in Right Antecubital via Peripheral IV. Pump/Drip Flow = 100 ml/hr using NaCl .9. Initial Case Assessment Cardiovascular HR Rhythm NIBP Chest Pain 74 nsr 135/83 1 Edema Present Skin color Skin None Normal Warm Circulatory - Right Pulses Dorsalis Pedis Femoral 2 1 Scale (0,1,2,3,4,d) Circulatory - Left Pulses Dorsalis Pedis Femoral 2 1 Scale (0,1,2,3,4,d) Neurological State Oriented to time-place- Alert Moves all extremities person Respiration - General Respiration Rate SpO2 (%) O2 (lpm) (B/min) 11 100 2 Chronological Log Time Study Chronological Log 0 units/hr HEPARIN DRIP STOPPED given by Caitlyn Veloz BSRN. Pump/Drip Flow = 0 ml/hr using [Solution 17:00:24 Name]. 17:11:04 Patient arrived via Bed. 17:11:05 Patient Name, D.O.B, / Armband Verified By R.N. 17:11:07 Consent signed by the physician and the patient and verified by the Rn Prior Authorization staff. 17:11:08 Pre-op and post- op instructions given; patient acknowledges understanding of instructions. 17:11:20 Patient has been NPO for More than 6Hrs. 17:11:21 Skin Breakdown- none per patient 17:11:22 Patient Warmer Placed on the Table. 17:12:17 Disposable Defibrillator Pads Placed On Patient. 17:15:30 A # 20 IV was noted in the Hand (right). Grade = 0 17:15:31 A # 20 IV was noted in the Hand (right). Grade = 0 17:16:37 History and physical on the chart or being dictated. Vitals capture started with the following parameters, Patient=Adult, Interval=5 min, Initial Pr rujzrw=560 mmHg, 17:16:57 Deflation Rate=5 mmHg, Cuff placed on Right Arm 17:17:33 HR=73 bpm, VTYN=421/81 mmhg, IxL0=055 %, Resp=12 B/min Assessment: Initial Case, HR=74 BPM, Rhythm=nsr, DLCE=483/83 mmhg, Chest Pain=1, Edema=None, Co kieran=Normal, Skin = Warm Right Pulses: Paul Ped=2, Femoral=1 17:17:41 Left Pulses: Paul Ped=2, Femoral=1 Neurological: State=Alert, Ox3, REECE Respiration: Resp=11 B/min, ZzE4=932 %, O2=2 lpm 17:22:35 HR=82 bpm, MASA=999/83 mmhg, SpO2=98.0 %, Resp=12 B/min 17:25:20 Bilateral groins prepped with 2% chlorhexidine, and draped after a 3 min. waiting time. IV Solutions given in lab by Caitlyn Veloz BSRN in Right Antecubital via Peripheral IV. Pum p/Drip Flow = 100 ml/hr 17:26:31 using NaCl .9. 17:27:36 HR=74 bpm, VFYU=447/85 mmhg, SpO2=99.0 %, Resp=10 B/min 17:28:50 MD paged 17:29:00 MD responded 17:32:39 HR=73 bpm, HNHX=553/78 mmhg, SpO2=99.0 %, Resp=9 B/min 17:37:03 Pressure channel 1 zeroed. 17:37:36 Reference ECG taken 17:37:40 HR=73 bpm, QZHZ=934/77 mmhg, IqI7=206.0 %, Resp=7 B/min 17:39:50 MD arrived. 17:40:18 2 mg VERSED given in lab by Caitlyn Veloz BSRN in Right Antecubital via Peripheral IV. 17:40:19 50 mcg FENTANYL given in lab by Caitlyn Veloz BSRN in Right Antecubital via Peripheral IV. 17:42:43 HR=78 bpm, RMFH=475/74 mmhg, RaL3=417.0 %, Resp=14 B/min Time Out. Correct patient, correct procedure,correct physician, ,power injector loaded or not l oaded with contrast with 17:44:19 surgical team present. Time Out Concurred by MD, individual staff and PSYCHOMETRIC EXAMINER in procedure 17:45:04 Case Start 17:45:10 50 mcg FENTANYL given in lab by Caitlyn Veloz BSRN in Right Antecubital via Peripheral IV. 17:45:21 20 mL 1% XYLOCAINE given in lab by Jeremias Miller in Right Groin via Subcutaneous. 17:46:42 Access site was Right Femoral Artery using ultrasound. 17:47:04 A SHEATH, FR5 TERUMO (10CM) FR 5 was advanced into the Fem Art (right) using the Percutaneo us technique. 17:47:42 HR=71 bpm, PSJA=782/76 mmhg, SpO2=99.0 %, Resp=9 B/min 17:47:42 Activated Clotting Time Drawn A PIGTAIL ANG. INFINITI CATHETER FR 5 was advanced over a wire. OMNIPAQUE, 350 MG, 150ML 150ML was used 17:49:10 for injections. Recorded Pressure: LV, HR=71, Condition=Condition 1 17:50:15 (Left Ventricle) LV 123/15/22 17:50:47 The LV was injected at 10 cc/sec for a total of 30. OMNIPAQUE, 350 MG, 150ML 150ML used. Recorded Pressure: LV, Ao, HR=75, Condition=Condition 1 17:52:09 (Left Ventricle) LV 124/11/21, (Aorta) Ao 128/74/98 17:52:33 ACT (Normal Range 90-180) = 111 17:52:41 HR=76 bpm, NNRH=583/76 mmhg, Resp=12 B/min 17:52:50 Catheter was removed A JL 4.0 INFINITI CATHETER FR 5 was advanced over a wire. OMNIPAQUE, 350 MG, 150ML 150ML was us ed for 17:52:53 injections. Recorded Pressure: Ao, HR=75, Condition=Condition 1 17:53:38 (Aorta) Ao 127/77/100 17:54:11 The LCA was injected and visualized at various angles. OMNIPAQUE, 350 MG, 150ML 150ML used . 17:54:39 1 mg VERSED given in lab by Caitlyn Veloz BSRN in Right Antecubital via Peripheral IV. 17:56:17 Catheter was removed A AR MOD INFINITI CATHETER FR 5 was advanced over a wire. OMNIPAQUE, 350 MG, 150ML 150ML was u sed for 17:57:18 injections. 17:57:42 HR=73 bpm, PBTL=251/75 mmhg, SpO2=95.0 %, Resp=12 B/min 17:58:46 The RCA was injected and visualized at various angles. OMNIPAQUE, 350 MG, 150ML 150ML use d. 17:59:16 Catheter was removed A AR MOD INFINITI CATHETER FR 5 was advanced over a wire. OMNIPAQUE, 350 MG, 150ML 150ML was u sed for 17:59:21 injections. 18:00:31 The ACE was injected and visualized at various angles. OMNIPAQUE, 350 MG, 150ML 150ML use d. 18:02:41 HR=87 bpm, WNYO=325/85 mmhg, SpO2=94.0 %, Resp=14 B/min 18:03:50 An injection in the Fem Art (right) was made through the SHEATH, FR5 TERUMO (10CM) FR 5. 18:05:33 ANGIOSEAL, FR6 VIP FR 6 placement in the Fem Art (right) 18:07:09 Case End 18:07:14 Sterile dressing applied to site 18:07:20 No case complications noted. 18:07:42 HR=89 bpm, NIYE=464/79 mmhg, SpO2=99.0 %, Resp=27 B/min 18:08:27 A Left Heart Cath was performed. 1000 units/hr HEPARIN DRIP given in lab by Caitlyn Veloz BSRN in Right Antecubital via Per ipheral IV. Pump/Drip 18:13:29 Flow = 10 ml/hr [place] [address] units in 250 ml. 18:20:28 [facility] Study - Contrast Media Used In Study Contrast Total Opened (mL) Total Used (mL) Total Wasted (mL) Omnipaque 130 130 0 End Study - Maximum Contrast Load Max Contrast Load (mL) 613.6 End Study - Radiation Exposure Fluoro Time (minutes) 2.2 End Study - Patient Disposition Complications Transferred To Interventional Outcome No Telemetry Bed No attempt made
[2017-04-06] MEDS: DOCUSATE SODIUM 50 MG/SENNA 8.6 MG TAB PO SCH (21:00)
[2017-04-06] MEDS ORDERED: METOPROLOL TARTRATE 25 MG TAB PO SCH (21:00)
[2017-04-06] MEDS: METOPROLOL TARTRATE 25 MG TAB PO SCH (21:38)
[2017-04-07] VITALS (25 sets, daily range): BP systolic 125–151; BP diastolic 59–84; PULSE 58–98; RESP 16–18; TEMP 97.6–98.3; O2SAT 96–98
[2017-04-07 01:57] LABS: APTT (PATIENT) 34.2 SEC (24.3-30.1)
[2017-04-07] MEDS: NITROGLYCERIN 2% OINT 1 GM PACKET TOPICAL SCH ×4 (03:46→21:46)
[2017-04-07] MEDS: SODIUM CHLOR 0.9% 1000 ML INJ 1,000 ML IV SCH ×2 (03:49→15:30)
[2017-04-07 06:47] LABS: MEAN CELL VOLUME 83.9 FL (80.0-100.0); MEAN CORPUSCULAR HEMOGLOBIN 28.1 PG (27.0-34.0); MEAN CORPUSCULAR HGB CONC 33.5 % (32.0-36.0); PLATELET COUNT 155 TH/MM3 (150-450); RED BLOOD COUNT 4.88 MIL/MM3 (4.50-5.90); RED CELL DISTRIBUTION WIDTH 13.8 % (11.6-17.2); REVIEW FLAG FINAL; WHITE BLOOD COUNT 7.8 TH/MM3 (4.0-11.0)
[2017-04-07 06:56] LABS: APTT (PATIENT) 35.6 SEC (24.3-30.1); PROTHROMBIN TIME - PATIENT 10.9 SEC (9.8-11.6)
[2017-04-07 07:12] LABS: BICARBONATE 30.1 MEQ/L (21.0-32.0); MAGNESIUM 2.1 MG/DL (1.5-2.5)
[2017-04-07 07:14] LABS: HDL CHOLESTEROL 38.7 MG/DL (40.0-60.0)
[2017-04-07] MEDS ORDERED: METO25TA3 PO (07:46)
[2017-04-07] MEDS ORDERED: ATOR1TAB18 PO (07:46)
[2017-04-07] MEDS ORDERED: NITR0.4S SL (07:46)
[2017-04-07] MEDS ORDERED: ASPI-99 PO (07:46)
--- NOTE | 2017-04-07 07:46 | HHI.DCPOC ---
Discharge Care Plan Diagnosis: (1) NSTEMI (non-ST elevated myocardial infarction) Your Health Problems Are: Difficulty with ADL Exercise Tolerance Goals to Promote Your Health * To prevent worsening of your condition and complications * To maintain your health at the optimal level Directions to Meet Your Goals Take your medications as prescribed Follow your dietary instruction Follow activity as directed Keep your appointments as scheduled Take your immunizations and boosters as scheduled If your symptoms worsen call your PCP, if no PCP go to Urgent Care Center or Emergency Room Smoking is Dangerous to Your Health. Avoid second hand smoke Call the 24-hour hour crisis hotline for domestic abuse at Connor Gurrola MD Apr 07, 2017 07:46
[2017-04-07] MEDS: DOCUSATE SODIUM 50 MG/SENNA 8.6 MG TAB PO SCH (08:12)
[2017-04-07] MEDS: SODIUM CHLORIDE 0.9% FLUSH 10 ML FLUSH IV FLUSH SCH ×2 (09:00→21:46)
--- NOTE | 2017-04-07 09:02 | HHI.PR ---
Subjective Remarks Follow-up CAD. Tolerated cardiac catheterization which revealed multivessel CAD cardio vascular surgery consulted. Patient denies chest pain but complains of severe frontal throbbing headache for the last 3 days worse after nitroglycerin. No fever, visual change, neck pain, focal weakness and trauma. States he is unable to sleep because of headache. He is also intolerant of oxycodone which causes rebound headaches. Discussed with RN Objective Vitals Vital Signs Date Time Temp Pulse Resp B/P Pulse Ox O2 Delivery O2 Flow Rate FiO2 04/07/17 08:08 98.3 68 17 125/59 97 04/07/17 07:00 73 04/07/17 06:00 69 04/07/17 05:00 64 04/07/17 04:00 68 04/07/17 04:00 97.6 68 16 137/80 98 04/07/17 03:00 79 04/07/17 02:00 62 04/07/17 01:00 62 04/07/17 00:00 97.9 60 16 145/75 98 04/07/17 00:00 60 04/06/17 23:00 74 04/06/17 22:00 74 04/06/17 21:00 67 04/06/17 20:00 97.8 71 16 153/84 99 04/06/17 20:00 70 04/06/17 19:00 65 04/06/17 11:31 96.3 71 18 128/74 98 I/O 04/06/17 04/06/17 04/06/17 04/07/17 04/07/17 04/07/17 06:59 14:59 22:59 06:59 14:59 22:59 Intake Total 500 ml 1372 ml Output Total 500 ml 700 ml Balance 0 ml 672 ml Intake Oral 0 ml 240 ml IV Total 500 ml 1132 ml Output Urine Total 500 ml 700 ml # Voids 1 2 # Bowel Movements 0 0 Result Diagram: 04/07/1715 04/07/1715 Imaging Last Impressions Chest X-Ray 04/05/17 1833 Signed Impressions: Service Date/Time: Wednesday, April 05, 2017 18:50 - CONCLUSION: No acute disease. Jaden West MD CT Angiography 04/05/17 0000 Signed Impressions: Service Date/Time: Wednesday, April 05, 2017 21:45 - CONCLUSION: 1. Negative for pulmonary embolus. Minimal basal atelectasis or scarring. Mild coronary calcifications. Calcified granulomata in the lungs. Jaden West MD Objective Remarks GENERAL: Well-developed, obese in distress due to headache HEAD: Atraumatic. Normocephalic. EYES: Pupils equal and round. No scleral icterus. No injection or drainage. CARDIOVASCULAR: Regular rate and rhythm. RESPIRATORY: No accessory muscle use. Clear to auscultation. Breath sounds equal bilaterally. GASTROINTESTINAL: Abdomen soft, non-tender, nondistended. MUSCULOSKELETAL: Extremities without clubbing, cyanosis but with bilateral lower extremity pitting edema. No obvious deformities. NEUROLOGICAL: Awake and alert. No obvious cranial nerve deficits. Motor grossly within normal limits. Five out of 5 muscle strength in the arms and legs. Normal speech. Procedures Cardiac catheterization A/P Problem List: (1) NSTEMI (non-ST elevated myocardial infarction) ICD Code: I21.4 Status: Acute Assessment and Plan 61 y/o with no cardiac history presented to the ED for evaluation of chest pain: NSTEMI. Cardiac catheterization revealed multivessel CAD involving left main, LAD, diagonal and ramus. Chest pain-free continue aspirin, Lipitor, Lopressor and Nitropaste. Also on heparin drip. A1c 5.8. LDL 172. Risk factor modification. Follow-up cardiothoracic surgery recommendations. Also check echocardiogram with borderline EF Headache. He is nonfocal. Obtain head CT patient on heparin drip and aspirin. Neurochecks. Fioricet and Tylenol. Anxiety - Xanax 0.125 mg x one dose PRN anxiety Chronic medical conditions of asthma, rheumatoid arthritis, gouty and osteoarthritis. Stable DVT prophylaxis - on heparin drip Discharge Planning Discharge when cleared by cardio and cardiac thoracic surgery Connor Gurrola MD Apr 07, 2017 09:02
[2017-04-07] MEDS: METOPROLOL TARTRATE 25 MG TAB PO SCH ×2 (09:24→21:46)
[2017-04-07] MEDS: ASPIRIN EC 81 MG TABEC PO SCH (09:24)
[2017-04-07 13:20] LABS: APTT (PATIENT) 33.1 SEC (24.3-30.1)
[2017-04-07] MEDS ORDERED: CHLORHEXIDINE GLUCONATE 4% SOLN 120 ML BTL TOPICAL SCH (14:00)
[2017-04-07] MEDS ORDERED: CEFAZOLIN INJ 500 MG in SODIUM CHLORIDE 0.9% IRR BTL 500 ML IRRIGATION SCH (14:00)
[2017-04-07] MEDS ORDERED: SODIUM CHLORIDE 0.9% FLUSH 10 ML FLUSH IV FLUSH PRN (14:00)
[2017-04-07] MEDS ORDERED: PAPAVERINE INJ 60 MG, NITROGLYCERIN INJ 100 MCG, DILTIAZEM INJ 100 MG in SODIUM CHLORID... IRRIGATION SCH (14:00)
[2017-04-07] MEDS ORDERED: METOPROLOL TARTRATE 25 MG TAB PO SCH (14:00)
[2017-04-07] MEDS ORDERED: ceFAZolin 2 GM PREMIX 50 ML IV SCH (14:00)
[2017-04-07] MEDS ORDERED: INSULIN REGULAR (IV INFUSION) 100 UNITS in SODIUM CHLORIDE 0.9% INJ 100 ML IV SCH (14:00)
--- NOTE | 2017-04-07 14:14 | PD.CAR.PN ---
CVT Progress Note Subjective/Hospital Course: pt seen and evaluated full note dictated / sts data discussed with pt RISK SCORES About the STS Risk Calculator Procedure: CAB Only Risk of Mortality: 0.512% Morbidity or Mortality: 8.32% Long Length of Stay: 2.348% Short Length of Stay: 63.107% Permanent Stroke: 0.472% Prolonged Ventilation: 5.5% DSW Infection: 0.315% Renal Failure: 1.758% Reoperation: 3.19% Objective: Vital Signs Date Time Temp Pulse Resp B/P Pulse Ox O2 Delivery O2 Flow Rate FiO2 04/07/17 13:00 86 04/07/17 12:00 89 04/07/17 11:00 69 04/07/17 11:00 98.0 98 17 149/81 98 04/07/17 10:00 58 04/07/17 09:00 78 04/07/17 08:08 98.3 68 17 125/59 97 04/07/17 08:00 81 04/07/17 07:00 73 04/07/17 06:00 69 04/07/17 05:00 64 04/07/17 04:00 68 04/07/17 04:00 97.6 68 16 137/80 98 04/07/17 03:00 79 04/07/17 02:00 62 04/07/17 01:00 62 04/07/17 00:00 97.9 60 16 145/75 98 04/07/17 00:00 60 04/06/17 23:00 74 04/06/17 22:00 74 04/06/17 21:00 67 04/06/17 20:00 97.8 71 16 153/84 99 04/06/17 20:00 70 04/06/17 19:00 65 Labs: Laboratory Tests Test 04/07/17 04/07/17 06:15 11:12 White Blood Count 7.8 TH/MM3 (4.0-11.0) Red Blood Count 4.88 MIL/MM3 (4.50-5.90) Hemoglobin 13.7 GM/DL (13.0-17.0) Hematocrit 41.0 % (39.0-51.0) Mean Corpuscular Volume 83.9 FL (80.0-100.0) Mean Corpuscular Hemoglobin 28.1 PG (27.0-34.0) Mean Corpuscular Hemoglobin 33.5 % Concent (32.0-36.0) Red Cell Distribution Width 13.8 % (11.6-17.2) Platelet Count 155 TH/MM3 (150-450) Mean Platelet Volume 7.3 FL (7.0-11.0) Prothrombin Time 10.9 SEC (9.8-11.6) Prothromb Time International 1.0 RATIO Ratio Activated Partial 35.6 SEC 33.1 SEC Thromboplast Time (24.3-30.1) (24.3-30.1) Sodium Level 140 MEQ/L (136-145) Potassium Level 4.0 MEQ/L (3.5-5.1) Chloride Level 105 MEQ/L (98-107) Carbon Dioxide Level 30.1 MEQ/L (21.0-32.0) Anion Gap 5 MEQ/L (5-15) Blood Urea Nitrogen 11 MG/DL (7-18) Creatinine 1.00 MG/DL (0.60-1.30) Estimat Glomerular Filtration 76 ML/MIN (>89) Rate Random Glucose 108 MG/DL (74-106) Calcium Level 8.2 MG/DL (8.5-10.1) Magnesium Level 2.1 MG/DL (1.5-2.5) Triglycerides Level 125 MG/DL (42-150) Cholesterol Level 212 MG/DL (120-200) LDL Cholesterol 148 MG/DL (0-99) HDL Cholesterol 38.7 MG/DL (40.0-60.0) Cholesterol/HDL Ratio 5.47 RATIO Result Diagram: 04/07/17 0615 04/07/17 0615 Mell Torres Apr 07, 2017 14:14
[2017-04-07] MEDS: HEPARIN-D5W 25,000 U/250 ML 250 ML IV SCH (15:02)
--- NOTE | 2017-04-07 15:06 | EKG ---
Date Performed: 04/07/2017 Time Performed: 06:19:58 PTAGE: 61 years EKG: Sinus arrhythmia Possible inferior infarct - age undetermined Septal T wave changes are non specific Compared to previous tracing, the septal T waves are slightly more abnormal, otherwise no si gnificant change Abnormal ECG PREVIOUS TRACING : 04/06/2017 01.05 DOCTOR: Pee Triplett Interpretating Date/Time 04/07/2017 15:05:03
--- NOTE | 2017-04-07 15:32 | MB ---
cc: PRISCA NORRIS DATE OF CONSULTATION: 04/07/2017. HISTORY OF PRESENT ILLNESS: This is a 61-year-old male who presented to the emergency room transferred from the [facility] Emergency Department for a non-S-T segment myocardial infarction. Apparently he had been complaining of chest discomfort off and on for the past couple of weeks and on the day of admission he had severe substernal chest pain radiating down both arms, left side of his neck and jaw. He also had some palpitations, diaphoresis and nausea and shortness of breath. The pain did improve with the use of nitroglycerin. He did have elevated cardiac enzymes of 0.26 and 0.46 and consistent with a non-S-T segment myocardial infarction. He underwent cardiac catheterization yesterday on 04/06, which showed a left main disease of 60%, proximal left anterior descending 50%, ostial 95% proximal, diagonal 70%, the OM 99%, ejection fraction of 50%. We were consulted to evaluate for coronary artery bypass grafting. PAST MEDICAL HISTORY: 1. Osteoarthritis. 2. Gastroesophageal reflux disease (GERD). 3. Rheumatoid arthritis. RISK FACTORS: Age, questionable hypertension. PAST SURGICAL HISTORY: 1. Knee surgery. 2. Back surgery. 3. Nasal surgery. 4. Shoulder surgery. 5. Hand surgery. 6. Toe surgery. ALLERGIES: CODEINE. FAMILY HISTORY: Both parents from history of cancer. SOCIAL HISTORY: The patient is a nonsmoker. Occasional alcohol. . MEDICATIONS: Of note, he has been off methotrexate for seven months because of some kind of reaction. REVIEW OF SYSTEMS: GENERAL: In general, no night sweats, fever, heat or cold intolerance SKIN: No psoriasis, itching or hives. HEAD, EYES, EARS, NOSE, THROAT: No blurred vision, hearing loss. RESPIRATORY: Positive for occasional for shortness of breath. CARDIOVASCULAR: As above in the history of present illness. GASTROINTESTINAL: No diarrhea, vomiting. GENITOURINARY: No burning frequency, urgency FUR VAULT ATTENDANT: No history of TIA, CVA, seizure disorder. ENDOCRINE: No history of diabetes and/or hypothyroidism. PHYSICAL EXAMINATION: VITAL SIGNS: Blood pressure 140/80, heart rate of 70, afebrile. GENERAL: Patient is awake, alert, no acute distress. HEAD, EYES, EARS, NOSE, THROAT: Head is normocephalic, atraumatic. Pupils equal and reactive. Oral mucosa pink, moist. NECK: The neck is supple. No jugular venous distention. HEART: Heart sounds S1-S2 regular rate and rhythm. No rubs, murmurs, gallops. LUNGS: Clear to auscultation. No wheezes, rales or rhonchi. ABDOMEN: Abdomen soft and nontender. No masses or organomegaly. EXTREMITIES: No cyanosis, clubbing or edema. SKIN: He has multiple tattoos on his upper extremities. LAB WORK: Hemoglobin of 13, hematocrit of 41, white cell count of 7.8, platelet count of 155,000. Sodium 140, potassium 4.0, BUN of 11, creatinine 1.0. Hemoglobin A1c of 5.8. Calcium 8.2, magnesium 2.1. Troponin as above. Triglycerides 125, cholesterol 212, LDL 148, HDL of 38. IMAGING STUDIES: Chest x-ray is unremarkable. EKGS: EKG is normal sinus rhythm. He does have some possible Q-waves in his inferior leads. IMPRESSION: This is a 61-year-old male admitted with a olp-Y-R-segment [place], multivessel coronary disease with ejection fraction of 50%. The cardiac films have been reviewed by Dr. Prisac Norris. The procedures, alternatives and risks have been discussed with the patient. He is agreeable to proceed. Will plan for coronary artery bypass grafting x3 to the left anterior descending, the diagonal and the OM on MondayApril 10. Further workup including vein mapping, carotid ultrasound and further planning per Dr. Prisca Norris. Dictated by ABNER Garces. MD ANSHU Torres/JORDAN /2:16 PM /3:23 PM
--- NOTE | 2017-04-07 15:38 | RADRPT ---
EXAM DATE/TIME: 04/07/2017 14:40 [facility] COMPARISON: No previous studies available for comparison. INDICATIONS : Preop cardiac surgery. MEDICAL HISTORY : Arthritis. Gastroesophageal reflux disease. Neck pain. Numbness, left leg and foot. Chest pain. Asth ma. Dyspnea. Claustrophobia. SURGICAL HISTORY : Cholecystectomy. Arthroscopy right knee, right shoulder. Lower back and cervical fusion. Septoplasty. ENCOUNTER: Initial ACUITY: 1 day PAIN SCORE: 0/10 LOCATION: Bilateral legs. TECHNIQUE: Venous ultrasound of the left and right leg was performed from the inguinal ligament to the proximal calf. Real-time, color Doppler and spectral tracing, compression and augmentation techniques were us ed. FINDINGS: RIGHT LEG: There is normal compressibility of the deep venous system from the inguinal region to the proximal ca lf. No echogenic clot is seen in the lumen of the common femoral, femoral, popliteal, and posterior tibial veins. There is a normal response of the venous system to proximal and distal augmentation an d respiration. LEFT LEG: There is normal compressibility of the deep venous system from the inguinal region to the proximal ca lf. No echogenic clot is seen in the lumen of the common femoral, femoral, popliteal, and posterior tibial veins. There is a normal response of the venous system to proximal and distal augmentation an d respiration. CONCLUSION: Normal examination. Surinder Pelaez MD on April 07, 2017 at 15:36 Board Certified Radiologist. This report was verified electronically.
--- NOTE | 2017-04-07 16:10 | RADRPT ---
EXAM DATE/TIME: 04/07/2017 15:09 [facility] COMPARISON: No previous studies available for comparison. INDICATIONS : Preop cardiac surgery. MEDICAL HISTORY : Gastroesophageal reflux disease. Arthritis. Neck pain. Numbness, left leg and foot. Chest pain. Ast hma. Dyspnea. Claustrophobia. SURGICAL HISTORY : Cholecystectomy. Arthroscopy right knee, right shoulder. Lower back and cervical fusion. Septopla sty. ENCOUNTER: Initial ACUITY: 1 day PAIN SCORE: 0/10 LOCATION: Bilateral neck PEAK SYSTOLIC VELOCITIES (cm/sec): ICA/CCA RATIO: Right: 0.8 Left: 0.8 ICA: Right: 82 Left: 84 CCA: Right: 106 Left: 103 ECA: Right: 119 Left: 100 VERTEBRAL: Right: 61 antegrade Left: 72 antegrade Elevated flow velocities and ICA/CCA ratios have been found to correlate with increased degrees of vessel stenosis, calculated as percentage of diameter relative to a normal segment of distal ICA/CCA FINDINGS: RIGHT CAROTID: No significant stenosis is visualized. There is mild atherosclerotic disease. The waveforms are with in normal limits. LEFT CAROTID: No significant stenosis is visualized. There is minimal atherosclerotic disease. The waveforms are w ithin normal limits. VERTEBRAL ARTERIES: Antegrade flow is seen in both vertebral arteries. MISCELLANEOUS: None. CONCLUSION: 1. Minimal atherosclerotic disease bilaterally. No significant stenosis is present with either inter nal carotid artery (less than 50% stenosis). 2. There is antegrade flow in both vertebral arteries. Surinder Rouse MD on April 07, 2017 at 16:07 Board Certified Radiologist. This report was verified electronically.
--- NOTE | 2017-04-07 16:21 | RADRPT ---
EXAM DATE/TIME: 04/07/2017 14:50 [facility] COMPARISON: No previous studies available for comparison. INDICATIONS : Preop cardiac surgery. MEDICAL HISTORY : Arthritis. Gastroesophageal reflux disease. Neck pain. Numbness, left leg and foot. Chest pain. Asth ma. Dyspnea. Claustrophobia. SURGICAL HISTORY : Cholecystectomy. Arthroscopy right knee, right shoulder. Lower back and cervical fusion. Septoplast y. ENCOUNTER: Initial ACUITY: 1 day PAIN SCORE: 0/10 LOCATION: Bilateral legs. GREATER SAPHENOUS VEIN THIGH: PROXIMAL: Right 6 mm Left 4 mm MID: Right 4 mm Left 5 mm DISTAL: Right 3 mm Left 4 mm CALF: PROXIMAL: Right 3 mm Left 4 mm MID: Right 2 mm Left 2 mm DISTAL: Right 1 mm Left 2 mm FINDINGS: The venous system of the lower extremities are patent by color Doppler imaging. Measurements of the leg veins (in mm) are listed above. CONCLUSION: Normal exam. Superficial venous measurements as above. Ghanshyam Gaming MD on April 07, 2017 at 16:14 Board Certified Radiologist. This report was verified electronically.
[2017-04-07] MEDS ORDERED: EPINEPHrine HCL (1:10,000) 1 MG/10 ML SYRINGE ONE (17:00)
[2017-04-07] MEDS ORDERED: ATROPINE SULFATE 1 MG/10 ML SYRINGE ONE (17:00)
[2017-04-07 17:14] LABS: BLOOD, URINE NEG (NEG); COMMENT (UR) CULT NOT INDICATED; CULTURE IF INDICATED CULT NOT INDICATED; GLUCOSE,URINE NEG (NEG); KETONE, URINE NEG (NEG); NITRITE,URINE NEG (NEG); SQUAMOUS EPITHELIAL CELL URINE <1 /hpf (0-5); URINE COLOR LIGHT-YELLOW (YELLW/STRAW)
--- NOTE | 2017-04-07 17:29 | PD.CARD.PN ---
Subjective Subjective Remarks No CP or SOB, feels better Objective Medications Current Medications Medications (Trade) Dose Ordered Sig/Beth Route Start Time Stop Time Status Last Admin (Narcan Inj) 0.4 mg UNSCH PRN IV 04/05/17 22:45 Nitroglycerin 0.4 mg 0.4 mg Q5M PRN SL 04/05/17 22:45 04/06/17 08:34 (NS 1000 ml Inj) 1,000 ml @ 100 mls/hr Q10H IV 04/06/17 09:30 04/07/17 15:30 (Nitroglycerin 2% Oint) 2 inch Q6H TOPICAL 04/06/17 16:00 04/07/17 15:02 (Tylenol) 650 mg Q4H PRN PO 04/06/17 11:30 04/06/17 21:35 (Zofran Inj) 4 mg Q6H PRN IVP 04/06/17 11:30 04/06/17 19:31 (Celine-Colace) 1 tab BID PO 04/06/17 21:00 (Milk Of Magnesia Liq) 30 ml Q12H PRN PO 04/06/17 11:30 (Senokot) 17.2 mg Q12H PRN PO 04/06/17 11:30 (Lactulose Liq) 30 ml DAILY PRN PO 04/06/17 11:30 (Ecotrin Ec) 81 mg DAILY PO 04/07/17 09:00 04/07/17 09:24 (Lopressor) 25 mg Q12HR PO 04/06/17 21:00 04/07/17 09:24 Atorvastatin Calcium 80 mg 80 mg HS PO 04/07/17 21:00 (Heparin-D5W Inj) 250 ml @ 0 mls/hr TITRATE IV 04/06/17 18:45 04/07/17 15:02 (Fioricet 325-50-40) 1 tab Q6H PRN PO 04/07/17 09:00 (NS Flush) 2 ml BID IV FLUSH 04/07/17 21:00 (NS Flush) 2 ml UNSCH PRN IV FLUSH 04/07/17 14:00 Vital Signs / I&O Vital Signs Date Time Temp Pulse Resp B/P Pulse Ox O2 Delivery O2 Flow Rate FiO2 04/07/17 16:00 81 04/07/17 15:00 71 04/07/17 15:00 98.1 75 17 148/84 97 04/07/17 14:00 60 04/07/17 13:00 86 04/07/17 12:00 89 04/07/17 11:00 69 04/07/17 11:00 98.0 98 17 149/81 98 04/07/17 10:00 58 04/07/17 09:00 78 04/07/17 08:08 98.3 68 17 125/59 97 04/07/17 08:00 81 04/07/17 07:00 73 04/07/17 06:00 69 04/07/17 05:00 64 04/07/17 04:00 68 04/07/17 04:00 97.6 68 16 137/80 98 04/07/17 03:00 79 04/07/17 02:00 62 04/07/17 01:00 62 04/07/17 00:00 97.9 60 16 145/75 98 04/07/17 00:00 60 04/06/17 23:00 74 04/06/17 22:00 74 04/06/17 21:00 67 04/06/17 20:00 97.8 71 16 153/84 99 04/06/17 20:00 70 04/06/17 19:00 65 I/O 04/06/17 04/06/17 04/06/17 04/07/17 04/07/17 04/07/17 06:59 14:59 22:59 06:59 14:59 22:59 Intake Total 500 ml 1372 ml Output Total 500 ml 700 ml Balance 0 ml 672 ml Intake Oral 0 ml 240 ml IV Total 500 ml 1132 ml Output Urine Total 500 ml 700 ml # Voids 1 2 # Bowel Movements 0 0 Physical Exam GENERAL: In NAD SKIN: Warm and dry. HEAD: Normocephalic. EYES: No scleral icterus. No injection or drainage. NECK: Supple, trachea midline. No JVD or lymphadenopathy. CARDIOVASCULAR: Regular rate and rhythm without murmurs, gallops, or rubs. RESPIRATORY: Breath sounds equal bilaterally. No accessory muscle use. GASTROINTESTINAL: Abdomen soft, non-tender, nondistended. MUSCULOSKELETAL: No cyanosis, or edema. Groin stable. Laboratory Laboratory Tests Test 8/1104/07/17 04/07/17 04/07/17 01:34 06:15 11:12 14:30 Activated Partial 34.2 SEC 35.6 SEC 33.1 SEC Thromboplast Time White Blood Count 7.8 TH/MM3 Red Blood Count 4.88 MIL/MM3 Hemoglobin 13.7 GM/DL Hematocrit 41.0 % Mean Corpuscular Volume 83.9 FL Mean Corpuscular Hemoglobin 28.1 PG Mean Corpuscular Hemoglobin 33.5 % Concent Red Cell Distribution Width 13.8 % Platelet Count 155 TH/MM3 Mean Platelet Volume 7.3 FL Prothrombin Time 10.9 SEC Prothromb Time International 1.0 RATIO Ratio Sodium Level 140 MEQ/L Potassium Level 4.0 MEQ/L Chloride Level 105 MEQ/L Carbon Dioxide Level 30.1 MEQ/L Anion Gap 5 MEQ/L Blood Urea Nitrogen 11 MG/DL Creatinine 1.00 MG/DL Estimat Glomerular Filtration 76 ML/MIN Rate Random Glucose 108 MG/DL Calcium Level 8.2 MG/DL Magnesium Level 2.1 MG/DL Triglycerides Level 125 MG/DL Cholesterol Level 212 MG/DL LDL Cholesterol 148 MG/DL HDL Cholesterol 38.7 MG/DL Cholesterol/HDL Ratio 5.47 RATIO Nasal Screen MRSA (PCR) MRSA NOT DETECTED Test 04/07/17 16:22 Urine Color LIGHT-YELLOW Urine Turbidity CLEAR Urine pH 6.0 Urine Specific Dorothy 1.009 Urine Protein NEG mg/dL Urine Glucose (UA) NEG mg/dL Urine Ketones NEG mg/dL Urine Occult Blood NEG Urine Nitrite NEG Urine Bilirubin NEG Urine Urobilinogen LESS THAN 2.0 MG/DL Urine Leukocyte Esterase NEG Urine Squamous Epithelial <1 /hpf Cells Microscopic Urinalysis Comment CULT NOT INDICATED Imaging Last Impressions Lower Extremity Ultrasound 04/07/17 0000 Signed Impressions: Service Date/Time: Friday, April 07, 2017 14:50 - CONCLUSION: Normal exam. Superficial venous measurements as above. Ghanshyam Gaming MD Carotid Artery Ultrasound 04/07/17 0000 Signed Impressions: Service Date/Time: Friday, April 07, 2017 15:09 - CONCLUSION: 1. Minimal atherosclerotic disease bilaterally. No significant stenosis is present with either internal carotid artery (less than 50%% stenosis). 2. There is antegrade flow in both vertebral arteries. Surinder Rouse MD Chest X-Ray 04/05/17 4863 Signed Impressions: Service Date/Time: Wednesday, April 05, 2017 18:50 - CONCLUSION: No acute disease. Jaden West MD CT Angiography 04/05/17 0000 Signed Impressions: Service Date/Time: Wednesday, April 05, 2017 21:45 - CONCLUSION: 1. Negative for pulmonary embolus. Minimal basal atelectasis or scarring. Mild coronary calcifications. Calcified granulomata in the lungs. Jaden West MD Assessment and Plan Problem List: (1) ACS (acute coronary syndrome) (2) NSTEMI (non-ST elevated myocardial infarction) (3) Multi-vessel coronary artery stenosis (4) Arthritis Assessment and Plan Cath showed severe MV CAD; too high risk for PCI. Proceed with CABG, CV surgery consulted. Continue heparin, ASA, beta mario, high dose statin. CABG tentatively on Mon. D/w pt and . Jeremias Miller MD Apr 07, 2017 17:29
--- NOTE | 2017-04-07 17:44 | RADRPT ---
EXAM DATE/TIME: 04/07/2017 17:21 [facility] COMPARISON: No previous studies available for comparison. INDICATIONS : Cephalgia for one day, heaprin drip. RADIATION DOSE: 56.35 CTDIvol (mGy) MEDICAL HISTORY : Asthma SURGICAL HISTORY : Cholecystectomy. Fusion, cervical. ENCOUNTER: Initial ACUITY: 1 day PAIN SCALE: 2/10 LOCATION: Bilateral cranial anterior. TECHNIQUE: Multiple contiguous axial images were obtained of the head. Using automated exposure control and adj ustment of the mA and/or kV according to patient size, radiation dose was kept as low as reasonably a chievable to obtain optimal diagnostic quality images. DICOM format image data is available electro nically for review and comparison. FINDINGS: CEREBRUM: The ventricles are normal for age. No evidence of midline shift, mass lesion, hemorrhage or acute in farction. No extra-axial fluid collections are seen. POSTERIOR FOSSA: The cerebellum and brainstem are intact. The 4th ventricle is midline. The cerebellopontine angle i s unremarkable. EXTRACRANIAL: The visualized portion of the orbits is intact. SKULL: The calvaria is intact. No evidence of skull fracture. CONCLUSION: Normal examination. Surinder Pelaez MD on April 07, 2017 at 17:41 Board Certified Radiologist. This report was verified electronically.
[2017-04-07] MEDS: ACETAMINOPHEN 325 MG TAB PO PRN (17:52)
[2017-04-07 20:41] LABS: APTT (PATIENT) 35.9 SEC (24.3-30.1)
[2017-04-07] MEDS ORDERED: ATORVASTATIN 80 MG TAB PO SCH (21:00)
[2017-04-07] MEDS: ACETAMIN 325 MG/BUTALBITAL 50 MG/CAFFEINE 40 MG TAB PO PRN (23:45)
[2017-04-08] VITALS (24 sets, daily range): BP systolic 113–146; BP diastolic 60–88; PULSE 50–88; RESP 16–18; TEMP 97.8–98.4; O2SAT 96–98
[2017-04-08 04:33] LABS: HEMATOCRIT 39.6 % (39.0-51.0); MEAN CELL VOLUME 83.8 FL (80.0-100.0); MEAN CORPUSCULAR HEMOGLOBIN 27.9 PG (27.0-34.0); MEAN CORPUSCULAR HGB CONC 33.3 % (32.0-36.0); PLATELET COUNT 153 TH/MM3 (150-450); RED BLOOD COUNT 4.72 MIL/MM3 (4.50-5.90); RED CELL DISTRIBUTION WIDTH 13.9 % (11.6-17.2); REVIEW FLAG FINAL; WHITE BLOOD COUNT 6.8 TH/MM3 (4.0-11.0)
[2017-04-08] MEDS: ACETAMINOPHEN 325 MG TAB PO PRN (04:40)
[2017-04-08] MEDS: NITROGLYCERIN 2% OINT 1 GM PACKET TOPICAL SCH (04:41)
[2017-04-08 04:43] LABS: APTT (PATIENT) 43.5 SEC (24.3-30.1)
--- NOTE | 2017-04-08 09:21 | HHI.PR ---
Subjective Remarks Follow-up AL and headache. Denies chest pain but continues to have headache. Unable to sleep because of noisy air-conditioning. Discussed with RN, patient being moved to another room. Objective Vitals Vital Signs Date Time Temp Pulse Resp B/P Pulse Ox O2 Delivery O2 Flow Rate FiO2 04/08/17 06:20 59 04/08/17 05:00 59 04/08/17 04:00 98.3 69 18 135/69 98 04/08/17 04:00 59 04/08/17 03:03 63 04/08/17 02:00 59 04/08/17 01:00 65 04/08/17 00:00 98.0 62 18 113/60 96 04/08/17 00:00 70 04/07/17 23:00 67 04/07/17 22:00 58 04/07/17 21:00 59 04/07/17 20:00 60 04/07/17 20:00 98.2 82 18 151/74 96 04/07/17 19:00 62 04/07/17 18:00 89 04/07/17 17:00 90 04/07/17 16:00 81 04/07/17 15:00 71 04/07/17 15:00 98.1 75 17 148/84 97 04/07/17 14:00 60 04/07/17 13:00 86 04/07/17 12:00 89 04/07/17 11:00 69 04/07/17 11:00 98.0 98 17 149/81 98 04/07/17 10:00 58 I/O 04/07/17 04/07/17 04/07/17 04/08/17 04/08/17 04/08/17 06:59 14:59 22:59 06:59 14:59 22:59 Intake Total 1372 ml 1820 ml 1766 ml Output Total 700 ml 950 ml Balance 672 ml 1820 ml 816 ml Intake Oral 240 ml 720 ml 420 ml IV Total 1132 ml 1100 ml 1346 ml Output Urine Total 700 ml 950 ml # Voids 2 7 # Bowel Movements 0 4 1 Result Diagram: 04/08/17 0420 04/07/17 0615 Imaging Last Impressions Lower Extremity Ultrasound 04/07/17 0000 Signed Impressions: Service Date/Time: Friday, April 07, 2017 14:50 - CONCLUSION: Normal exam. Superficial venous measurements as above. Ghanshyam Gaming MD Head CT 04/07/17 0000 Signed Impressions: Service Date/Time: Friday, April 07, 2017 17:21 - CONCLUSION: Normal examination. Surinder Pelaez MD Carotid Artery Ultrasound 04/07/17 0000 Signed Impressions: Service Date/Time: Friday, April 07, 2017 15:09 - CONCLUSION: 1. Minimal atherosclerotic disease bilaterally. No significant stenosis is present with either internal carotid artery (less than 50%% stenosis). 2. There is antegrade flow in both vertebral arteries. Surinder Rouse MD Chest X-Ray 04/05/17 1833 Signed Impressions: Service Date/Time: Wednesday, April 05, 2017 18:50 - CONCLUSION: No acute disease. Jaden West MD CT Angiography 04/05/17 0000 Signed Impressions: Service Date/Time: Wednesday, April 05, 2017 21:45 - CONCLUSION: 1. Negative for pulmonary embolus. Minimal basal atelectasis or scarring. Mild coronary calcifications. Calcified granulomata in the lungs. Jaden West MD Objective Remarks GENERAL: Well-developed, obese in no distress EYES: Pupils equal and round. No scleral icterus. No injection or drainage. CARDIOVASCULAR: Regular rate and rhythm. RESPIRATORY: No accessory muscle use. Clear to auscultation. Breath sounds equal bilaterally. GASTROINTESTINAL: Abdomen soft, non-tender, nondistended. MUSCULOSKELETAL: Extremities without clubbing, cyanosis but with bilateral lower extremity pitting edema. No obvious deformities. NEUROLOGICAL: Awake and alert. No obvious cranial nerve deficits. Motor grossly within normal limits. Five out of 5 muscle strength in the arms and legs. Normal speech. Procedures Cardiac catheterization A/P Problem List: (1) NSTEMI (non-ST elevated myocardial infarction) ICD Code: I21.4 Status: Acute Assessment and Plan 61 y/o with no cardiac history presented to the ED for evaluation of chest pain: NSTEMI. Cardiac catheterization revealed multivessel CAD involving left main, LAD, diagonal and ramus. Chest pain-free continue aspirin, Lipitor, Lopressor and Nitrate. Also on heparin drip. A1c 5.8. LDL 172. Risk factor modification. For CABG Monday. Also check echocardiogram with borderline EF Headache. He is nonfocal. Unremarkable head CT. Continues to have headache likely secondary to Nitropaste. Switch to Imdur. Neurochecks. Fioricet and Tylenol. Anxiety - Xanax 0.125 mg x one dose PRN anxiety Chronic medical conditions of asthma, rheumatoid arthritis, gouty and osteoarthritis. Stable DVT prophylaxis - on heparin drip Discharge Planning Not stable for discharge Connor Gurrola MD Apr 08, 2017 09:21
[2017-04-08] MEDS: ACETAMIN 325 MG/BUTALBITAL 50 MG/CAFFEINE 40 MG TAB PO PRN ×2 (09:22→15:59)
[2017-04-08] MEDS: ASPIRIN EC 81 MG TABEC PO SCH (09:22)
[2017-04-08] MEDS: METOPROLOL TARTRATE 25 MG TAB PO SCH ×2 (09:22→20:26)
[2017-04-08] MEDS: SODIUM CHLORIDE 0.9% FLUSH 10 ML FLUSH IV FLUSH SCH ×2 (09:23→20:26)
[2017-04-08] MEDS: HEPARIN-D5W 25,000 U/250 ML 250 ML IV SCH (09:36)
[2017-04-08 12:11] LABS: APTT (PATIENT) 42.4 SEC (24.3-30.1)
--- NOTE | 2017-04-08 12:26 | MR ---
cc: GLENN LEHMAN DATE: 04/06/2017 INDICATIONS Xia-[id number]-[id number] myocardial function, class IV angina. PROCEDURE PERFORMED 1. Retrograde left heart catheterization with left ventriculography and selective coronary angiography 2. Left internal mammary artery angiography 3. Moderate sedation. ACCESS SITE: Right femoral artery disease. EQUIPMENT USED: 5 Turkmen pigtail catheter, 5 Turkmen JL-4 and AR modified coronary catheters. MEDICATIONS Versed IV Fentanyl IV. Heparin IV contrast Omnipaque 130 cc. COMPLICATIONS None BLOOD LOSS Less than 10 cc METHOD OF HEMOSTASIS Angio-Seal closure RESULTS HEMODYNAMICS: Heart rate 67, left ventricular end-diastolic pressure 11 mmHg Left ventricle; 125 /11, aorta 125/77/100. LEFT VENTRICULOGRAPHY Ejection fraction 50%. Wall motion: mild lateral hypokinesis, no mitral regurgitation. CORONARY ANGIOGRAPHY: The left main coronary has 60% stenosis in the distal portion. Left anterior descending artery has severe 95% stenosis followed by 80% focal stenosis in the proximal portion distally to the first diagonal branch. The mid and distal LAD patent. The first diagonal artery has 70% ostial stenosis. Second diagonal artery is patent. Ostial left circumflex artery 20% stenosis. OM1 is a large vessel with 99% stenosis in the midportion with subtotal occlusion with slow flow. Distal vessel faintly fills from the right to left collaterals. Ramus intermedius 50% proximal stenosis. Right coronary is a large dominant vessel which is patent. PDA patent. PLV patent. Left internal mammary artery and left subclavian artery were both widely patent. DIAGNOSIS 1. Severe multivessel coronary disease 2. Borderline normal left ventricular systolic function. DISPOSITION Mr. Burch was found to have evidence of severe coronary disease including severe disease in the left anterior descending artery, subtotal occlusion of the large marginal artery and 60% stenosis of the distal left main coronary artery. His left ventricular function was borderline normal. He suffered [id number] myocardial function. He will be referred for coronary bypass in the near future. His right groin was sealed with Angio-Seal and his heparin was restarted. We will continue aggressive therapy for angina and aggressive modification of his cardiac risk factors. MD EMETERIO Bruce/evita /6:26 PM /10:28 AM MARY
--- NOTE | 2017-04-08 15:17 | PD.CARD.PN ---
Objective Vital Signs / I&O Vital Signs Date Time Temp Pulse Resp B/P Pulse Ox O2 Delivery O2 Flow Rate FiO2 04/08/17 12:00 60 04/08/17 11:00 58 04/08/17 11:00 98.1 57 18 131/77 97 04/08/17 10:00 72 04/08/17 09:00 82 04/08/17 08:00 76 04/08/17 07:00 50 04/08/17 07:00 97.8 61 18 141/66 98 04/08/17 06:20 59 04/08/17 05:00 59 04/08/17 04:00 98.3 69 18 135/69 98 04/08/17 04:00 59 04/08/17 03:03 63 04/08/17 02:00 59 04/08/17 01:00 65 04/08/17 00:00 98.0 62 18 113/60 96 04/08/17 00:00 70 04/07/17 23:00 67 04/07/17 22:00 58 04/07/17 21:00 59 04/07/17 20:00 60 04/07/17 20:00 98.2 82 18 151/74 96 04/07/17 19:00 62 04/07/17 18:00 89 04/07/17 17:00 90 04/07/17 16:00 81 I/O 04/07/17 04/07/17 04/07/17 04/08/17 04/08/17 04/08/17 07:00 15:00 23:00 07:00 15:00 23:00 Intake Total 1372 ml 1820 ml 1766 ml Output Total 700 ml 950 ml Balance 672 ml 1820 ml 816 ml Intake Oral 240 ml 720 ml 420 ml IV Total 1132 ml 1100 ml 1346 ml Output Urine Total 700 ml 950 ml # Voids 2 7 # Bowel Movements 0 4 1 Laboratory Laboratory Tests Test 04/07/17 04/07/17 04/07/17 04/08/17 16:22 18:24 20:08 04:20 Urine Color LIGHT-YELLOW Urine Turbidity CLEAR Urine pH 6.0 Urine Specific Snyder 1.009 Urine Protein NEG mg/dL Urine Glucose (UA) NEG mg/dL Urine Ketones NEG mg/dL Urine Occult Blood NEG Urine Nitrite NEG Urine Bilirubin NEG Urine Urobilinogen LESS THAN 2.0 MG/DL Urine Leukocyte Esterase NEG Urine Squamous Epithelial <1 /hpf Cells Microscopic Urinalysis Comment CULT NOT INDICATED Blood Type O NEGATIVE O NEGATIVE Antibody Screen NEGATIVE Crossmatch Leukocyte-Reduced Red Blood Cells Blood Bank Comment Activated Partial 35.9 SEC 43.5 SEC Thromboplast Time White Blood Count 6.8 TH/MM3 Red Blood Count 4.72 MIL/MM3 Hemoglobin 13.2 GM/DL Hematocrit 39.6 % Mean Corpuscular Volume 83.8 FL Mean Corpuscular Hemoglobin 27.9 PG Mean Corpuscular Hemoglobin 33.3 % Concent Red Cell Distribution Width 13.9 % Platelet Count 153 TH/MM3 Mean Platelet Volume 7.2 FL Test 04/08/17 11:40 Activated Partial 42.4 SEC Thromboplast Time Assessment and Plan Problem List: (1) ACS (acute coronary syndrome) (2) NSTEMI (non-ST elevated myocardial infarction) (3) Multi-vessel coronary artery stenosis (4) Arthritis Assessment and Plan PT STABLE NO CP SOB WARREN FOR CAB MONDAY FOR 2V AND MAIN LEFT DX HE HAS R CAROTID BRUIT WILL CK US AND START STATIN dEgar Corado DO Apr 08, 2017 15:17
[2017-04-08] MEDS: ATORVASTATIN 20 MG TAB PO SCH (20:26)
[2017-04-09] VITALS (25 sets, daily range): BP systolic 100–149; BP diastolic 49–83; PULSE 46–78; RESP 16–20; TEMP 97.4–98.3; O2SAT 97–99
[2017-04-09] MEDS: HEPARIN-D5W 25,000 U/250 ML 250 ML IV SCH ×2 (01:10→20:38)
[2017-04-09] MEDS ORDERED: ISOSORBIDE MONONITRATE 30 MG TAB PO SCH (07:00)
[2017-04-09 07:24] LABS: HEMATOCRIT 42.8 % (39.0-51.0); MEAN CELL VOLUME 84.2 FL (80.0-100.0); MEAN CORPUSCULAR HEMOGLOBIN 27.6 PG (27.0-34.0); MEAN CORPUSCULAR HGB CONC 32.8 % (32.0-36.0); PLATELET COUNT 156 TH/MM3 (150-450); RED BLOOD COUNT 5.08 MIL/MM3 (4.50-5.90); RED CELL DISTRIBUTION WIDTH 14.4 % (11.6-17.2); REVIEW FLAG FINAL; WHITE BLOOD COUNT 7.1 TH/MM3 (4.0-11.0)
[2017-04-09] MEDS: ACETAMIN 325 MG/BUTALBITAL 50 MG/CAFFEINE 40 MG TAB PO PRN ×2 (08:31→17:18)
[2017-04-09] MEDS: METOPROLOL TARTRATE 25 MG TAB PO SCH ×2 (08:31→20:31)
[2017-04-09] MEDS: ASPIRIN EC 81 MG TABEC PO SCH (08:31)
[2017-04-09] MEDS: SODIUM CHLORIDE 0.9% FLUSH 10 ML FLUSH IV FLUSH SCH ×2 (08:32→20:31)
[2017-04-09] MEDS: ACETAMINOPHEN 325 MG TAB PO PRN (09:47)
--- NOTE | 2017-04-09 10:16 | PD.CAR.PN ---
CVT Progress Note Subjective/Hospital Course: pt seen and evaluated full note dictated / sts data discussed with pt RISK SCORES About the STS Risk Calculator Procedure: CAB Only Risk of Mortality: 0.512% Morbidity or Mortality: 8.32% Long Length of Stay: 2.348% Short Length of Stay: 63.107% Permanent Stroke: 0.472% Prolonged Ventilation: 5.5% DSW Infection: 0.315% Renal Failure: 1.758% Reoperation: 3.19% 04/09/17 Denies chest pain. No complaints Objective: Vital Signs Date Time Temp Pulse Resp B/P Pulse Ox O2 Delivery O2 Flow Rate FiO2 04/09/17 09:48 16 04/09/17 06:00 53 04/09/17 05:00 58 04/09/17 04:00 55 04/09/17 03:20 98.0 57 16 130/83 97 04/09/17 03:00 75 04/09/17 02:00 68 04/09/17 01:00 66 04/09/17 00:00 68 04/08/17 23:30 98.4 66 16 121/64 96 04/08/17 23:00 58 04/08/17 22:00 56 04/08/17 21:00 64 04/08/17 20:00 66 04/08/17 20:00 98.3 71 16 146/88 97 04/08/17 19:00 67 04/08/17 17:00 88 04/08/17 16:00 66 04/08/17 15:00 74 04/08/17 15:00 68 16 137/82 98 04/08/17 14:00 64 04/08/17 13:00 66 04/08/17 12:00 60 04/08/17 11:00 58 04/08/17 11:00 98.1 57 18 131/77 97 Labs: Laboratory Tests Test 04/09/17 06:12 White Blood Count 7.1 TH/MM3 (4.0-11.0) Red Blood Count 5.08 MIL/MM3 (4.50-5.90) Hemoglobin 14.0 GM/DL (13.0-17.0) Hematocrit 42.8 % (39.0-51.0) Mean Corpuscular Volume 84.2 FL (80.0-100.0) Mean Corpuscular Hemoglobin 27.6 PG (27.0-34.0) Mean Corpuscular Hemoglobin 32.8 % Concent (32.0-36.0) Red Cell Distribution Width 14.4 % (11.6-17.2) Platelet Count 156 TH/MM3 (150-450) Mean Platelet Volume 7.8 FL (7.0-11.0) Activated Partial 42.0 SEC Thromboplast Time (24.3-30.1) Result Diagram: 04/09/17 0612 04/07/17 0615 Imaging: Last Impressions Lower Extremity Ultrasound 04/07/17 0000 Signed Impressions: Service Date/Time: Friday, April 07, 2017 14:50 - CONCLUSION: Normal exam. Superficial venous measurements as above. Ghanshyam Gaming MD Head CT 04/07/17 0000 Signed Impressions: Service Date/Time: Friday, April 07, 2017 17:21 - CONCLUSION: Normal examination. Surinder Pelaez MD Carotid Artery Ultrasound 04/07/17 0000 Signed Impressions: Service Date/Time: Friday, April 07, 2017 15:09 - CONCLUSION: 1. Minimal atherosclerotic disease bilaterally. No significant stenosis is present with either internal carotid artery (less than 50%% stenosis). 2. There is antegrade flow in both vertebral arteries. Surinder Rouse MD Chest X-Ray 04/05/17 1833 Signed Impressions: Service Date/Time: Wednesday, April 05, 2017 18:50 - CONCLUSION: No acute disease. Jaden West MD CT Angiography 04/05/17 0000 Signed Impressions: Service Date/Time: Wednesday, April 05, 2017 21:45 - CONCLUSION: 1. Negative for pulmonary embolus. Minimal basal atelectasis or scarring. Mild coronary calcifications. Calcified granulomata in the lungs. Jaden West MD Cardiovascular: RRR Telemetry: NSR Pulmonary: CTA GI/: NABS, NT Plan: Preop for CABG in AM. I addressed any questions/concerns this morning. (1) ACS (acute coronary syndrome) (2) NSTEMI (non-ST elevated myocardial infarction) (3) Multi-vessel coronary artery stenosis (4) Arthritis Prisca Norris MD Apr 09, 2017 10:16
--- NOTE | 2017-04-09 10:39 | HHI.PR ---
Subjective Remarks Follow-up CAD and headache. No chest pain. States headache improved yesterday but back this morning after receiving Imdur. Still not able to sleep because of noisy air-conditioning. He is being transferred to CVICU for CABG in the morning. Objective Vitals Vital Signs Date Time Temp Pulse Resp B/P Pulse Ox O2 Delivery O2 Flow Rate FiO2 04/09/17 09:48 16 04/09/17 06:00 53 04/09/17 05:00 58 04/09/17 04:00 55 04/09/17 03:20 98.0 57 16 130/83 97 04/09/17 03:00 75 04/09/17 02:00 68 04/09/17 01:00 66 04/09/17 00:00 68 04/08/17 23:30 98.4 66 16 121/64 96 04/08/17 23:00 58 04/08/17 22:00 56 04/08/17 21:00 64 04/08/17 20:00 66 04/08/17 20:00 98.3 71 16 146/88 97 04/08/17 19:00 67 04/08/17 17:00 88 04/08/17 16:00 66 04/08/17 15:00 74 04/08/17 15:00 68 16 137/82 98 04/08/17 14:00 64 04/08/17 13:00 66 04/08/17 12:00 60 04/08/17 11:00 58 04/08/17 11:00 98.1 57 18 131/77 97 I/O 04/08/17 04/08/17 04/08/17 04/09/17 04/09/17 04/09/17 06:59 14:59 22:59 06:59 14:59 22:59 Intake Total 1766 ml 1026 ml 623 ml Output Total 950 ml 1000 ml 550 ml Balance 816 ml 26 ml 73 ml Intake Oral 420 ml 840 ml 480 ml IV Total 1346 ml 186 ml 143 ml Output Urine Total 950 ml 1000 ml 550 ml # Voids 1 # Bowel Movements 1 3 0 Result Diagram: 04/09/1712 04/07/17 0615 Objective Remarks GENERAL: Well-developed, obese in no distress EYES: Pupils equal and round. No scleral icterus. No injection or drainage. CARDIOVASCULAR: Regular rate and rhythm. RESPIRATORY: No accessory muscle use. Clear to auscultation. Breath sounds equal bilaterally. MUSCULOSKELETAL: Extremities without clubbing, cyanosis but with bilateral lower extremity pitting edema. No obvious deformities. NEUROLOGICAL: Awake and alert. No obvious cranial nerve deficits. Motor grossly within normal limits. Five out of 5 muscle strength in the arms and legs. Normal speech. Procedures Cardiac catheterization A/P Problem List: (1) NSTEMI (non-ST elevated myocardial infarction) ICD Code: I21.4 Status: Acute Assessment and Plan 61 y/o with no cardiac history presented to the ED for evaluation of chest pain: NSTEMI. Cardiac catheterization revealed multivessel CAD involving left main, LAD, diagonal and ramus. Chest pain-free continue aspirin, Lipitor, Lopressor and Nitrate. Also on heparin drip. A1c 5.8. LDL 172. Risk factor modification. For CABG tomorrow Monday. Also check echocardiogram with borderline EF Headache. He is nonfocal. Unremarkable head CT. Continues to have headache likely secondary to nitrate. Neurochecks. Fioricet and Tylenol. Anxiety - Xanax 0.125 mg x one dose PRN anxiety Chronic medical conditions of asthma, rheumatoid arthritis, gouty and osteoarthritis. Stable DVT prophylaxis - on heparin drip Discharge Planning Not stable for discharge Connor Gurrola MD Apr 09, 2017 10:39
[2017-04-09] MEDS ORDERED: ALPRAZolam 0.25 MG TAB PO PRN (11:00)
[2017-04-09] MEDS ORDERED: ALPRAZolam 0.25 MG TAB PO ONE (12:30)
[2017-04-09] MEDS: ATORVASTATIN 20 MG TAB PO SCH (20:31)
[2017-04-10] VITALS (17 sets, daily range): BP systolic 96–128; BP diastolic 47–72; PULSE 46–102; RESP 11–22; TEMP 97.6–98.3; O2SAT 92–100
[2017-04-10] MEDS ORDERED: ETOMIDATE 40 MG/20 ML VIAL IV PUSH ONE (05:00)
[2017-04-10] MEDS ORDERED: VECURONIUM BROMIDE 10 MG VIAL IV ONE (05:00)
[2017-04-10] MEDS ORDERED: AMINOCAPROIC ACID INJ 250 MG/ML 20 ML VIAL IV ONE ×2 (05:00)
[2017-04-10] MEDS ORDERED: PHENYLEPHRINE HCL 10 MG/ML VIAL IV ONE ×2 (05:00)
[2017-04-10] MEDS ORDERED: NITROGLYCERIN-D5W 50 MG/250 ML 250 ML IV ONE (05:00)
[2017-04-10] MEDS ORDERED: PROTAMINE SULFATE 250 MG/25 ML VIAL IV ONE ×2 (05:00→12:00)
[2017-04-10] MEDS ORDERED: HEPARIN SODIUM - SQ 10,000 UNITS/ML VIAL SQ ONE (05:00)
[2017-04-10] MEDS ORDERED: CALCIUM CHLORIDE 10% SOLN 1 GRAM/10 ML SYR IV ONE (05:00)
[2017-04-10] MEDS ORDERED: ARTIFICIAL TEARS OPTH OINT 3.5 APPLIC/3.5 GM TUBO ONE (05:00)
[2017-04-10] MEDS: METOPROLOL TARTRATE 25 MG TAB PO SCH (05:28)
[2017-04-10] MEDS ORDERED: methylPREDNISolone SOD SUCC 125 MG/2 ML VIAL ONE (06:22)
[2017-04-10] MEDS ORDERED: HEPARIN SODIUM - SQ 10,000 UNITS/ML VIAL ONE (06:22)
[2017-04-10] MEDS ORDERED: VANCOMYCIN HCL 1000 MG VIAL ONE (06:22)
[2017-04-10] MEDS ORDERED: ceFAZolin 2 GM PREMIX 50 ML ONE (06:22)
[2017-04-10] MEDS ORDERED: SODIUM BICARBONATE 8.4% INJ 50 ML ONE (07:07)
[2017-04-10] MEDS ORDERED: HEPARIN SODIUM - IV 10,000 UNITS/10 ML VIAL ONE (07:07)
[2017-04-10] MEDS ORDERED: POTASSIUM CHLORIDE 40 MEQ/20 ML VIAL ONE (07:07)
[2017-04-10] MEDS ORDERED: MANNITOL INJ 50 ML ONE (07:08)
[2017-04-10] MEDS ORDERED: ALBUMIN HUMAN 25% 12.5 GM/50 ML BAGP IV ONE (07:08)
[2017-04-10] MEDS ORDERED: CARDIOPLEGIC IRR 1,000 ML ONE (07:08)
[2017-04-10] MEDS ORDERED: CHLORHEXIDINE GLUCONATE 2 % 1 PACK (2 CLOTHS) TOPICAL ONE (07:30)
[2017-04-10] MEDS ORDERED: LACTATED RINGER'S 1000 ML INJ 500 ML IV PRN (11:20)
[2017-04-10] MEDS ORDERED: ACETAMINOPHEN 325 MG TAB PO PRN (11:30)
[2017-04-10] MEDS ORDERED: RESP: RACEPINEPHRINE 2.25% 0.5 ML NEB NEB PRN (11:30)
[2017-04-10] MEDS ORDERED: CALCIUM CHLORIDE INJ 1 GM in SODIUM CHLORIDE 0.9% INJ 100 ML IV PRN (11:30)
[2017-04-10] MEDS ORDERED: CLEVIDIPINE INJ 50 ML IV SCH (11:30)
[2017-04-10] MEDS ORDERED: MAGNESIUM SULFATE INJ 2 GM in SODIUM CHLORIDE 0.9% INJ 100 ML IV PRN ×4 (11:30)
[2017-04-10] MEDS ORDERED: DEXTROSE 50% IN WATER 50 ML VIAL(D50) IV PUSH PRN (11:30)
[2017-04-10] MEDS ORDERED: CALCIUM CHLORIDE 10% 1 GRAM/10 ML VIAL IV PRN (11:30)
[2017-04-10] MEDS ORDERED: INSULIN REGULAR (IV INFUSION) 100 UNITS in SODIUM CHLORIDE 0.9% INJ 99 ML IV SCH (11:30)
[2017-04-10] MEDS ORDERED: METOPROLOL TARTRATE 5 MG/5 ML VIAL IV PUSH PRN (11:30)
[2017-04-10] MEDS ORDERED: POTASSIUM CHLOR 20 MEQ PREMIX 100 ML IV PRN ×3 (11:30)
[2017-04-10] MEDS ORDERED: ALBUMIN HUMAN 5% 12.5 GM/250 ML BOTTLE IV PRN (11:30)
[2017-04-10] MEDS ORDERED: RESP: ALBUTEROL 2.5 MG/IPRATROPIUM 0.5 MG NEB (PRN) NEB (11:30)
[2017-04-10] MEDS ORDERED: Post-op Orders (for Pharmacy) MISC OTHER ONE (11:30)
[2017-04-10] MEDS ORDERED: hydrALAZINE HCL 20 MG/ML VIAL IV PRN (11:30)
[2017-04-10] MEDS ORDERED: ONDANSETRON HCL 4 MG/2 ML VIAL IV PUSH PRN (11:30)
[2017-04-10] MEDS ORDERED: POTASSIUM CHLORIDE 20 MEQ CONTROLLED RELEASE TAB PO PRN ×2 (11:30)
[2017-04-10] MEDS ORDERED: ACETAMINOPHEN 650 MG SUPP RECTAL PRN (11:30)
[2017-04-10] MEDS ORDERED: ceFAZolin INJ 1,000 MG VIAL ONE (11:31)
--- NOTE | 2017-04-10 11:31 | PD.OP ---
cc: Prisca Norris MD; Jeremias Miller MD Operative Report Date of Surgery: Apr 10, 2017 Preoperative Diagnosis: (1) NSTEMI (non-ST elevated myocardial infarction) (2) Multi-vessel coronary artery stenosis Postoperative Diagnosis: same Procedure: CABG x 3 ACE to LAD - good SVG to OM- fair SVG to D1 - good EVH Anesthesia: Dr. Luo Surgeon: Prisca Norris Marionette Performer(s): Surinder HENSON Operation and Findings: The risks, benefits, complications, treatment options, and expected outcomes were discussed with the patient. The possibilities of reaction to medication, pulmonary aspiration, perforation of viscus, bleeding, recurrent infection, the need for additional procedures, failure to diagnose a condition, and creating a complication requiring transfusion or operation were discussed with the patient. The patient concurred with the proposed plan, giving informed consent. The site of surgery properly noted/marked. The patient was taken to Operating Room, identified as Cruz Burch and the procedure verified as CABG, EVH. A Time Out was held and the above information confirmed. Standard monitoring lines and Nelson catheter were placed. General anesthesia was induced. The patient was prepped and draped in a sterile fashion. A median sternotomy was performed and electrocautery was used to obtain hemostasis. The left internal mammary artery was procured as a pedicle from the 7th rib to the 1st rib in the usual manner. Simultaneously left greater saphenous vein was procured from the left leg using a minimally invasive endoscopic technique. The vein was prepared for anastomosis and the leg wound was irrigated and closed in 2 layers. The pericardium was opened and a pericardial sling was created using interrupted 0 silk sutures. The patient was heparinized for cardiopulmonary bypass and the distal mammary pedicle was instrumented for anastomosis. The heart was instrumented for cardiopulmonary bypass in the usual manner. Antegrade blood cardioplegia was employed. The patient was placed on cardiopulmonary bypass. An aortic cross-clamp was applied and the heart was arrested using cold blood cardioplegia. Antegrade cardioplegia was administered after he each anastomosis. After adequate arrest, the OM was opened with a [place] blade and found to be a 1 millimeter fair target. Saphenous vein was approximated to the OM artery using a running 7 0 Prolene suture. The graft was measured for length and orientation and the proximal anastomosis was constructed to the ascending aorta using a running 5 0 Prolene suture after creating an aortotomy with a 5 millimeter punch. The 1st diagonal artery was then opened with a [place] blade and found to be a 1.5 millimeter good target. Saphenous vein was approximated to the D1 artery using a running 7 0 Prolene suture. The graft was measured for length and orientation and was suspended from the pericardium. The distal LAD was opened with a [place] blade and found to be a 1.5 millimeter good target. The left internal mammary artery was approximated to the LAD using a running 7 0 Prolene suture. The pedicle was attached to the epicardium using interrupted 5 0 silk suture. The patient was systemically rewarmed and received a hotshot dose of warm blood cardioplegia. The aorta was vented and the proximal anastomosis to the D1 graft was accomplished using a running 5 0 Prolene suture after creating an aortotomy was a 5 millimeter punch. The cross -clamp was removed and all proximal and distal anastomoses were examined for hemostasis. The patient was weaned from cardiopulmonary bypass. Protamine was given. There was no adverse reaction. Decannulation was carried out without incident. Wound was checked for hemostasis which was obtained using electrocautery. A 36 Slovak mediastinal and 32 Slovak left pleural chest was were placed and secured to the skin with 0 silk suture. The sternum was closed with stainless steel wire. The fascia was closed with 1. PDS. The subcutaneous tissue was closed using a running 2-0 Vicryl suture. The skin was closed with 4- 0 Monocryl. Sterile dressings were placed. At the end of the operation, all sponge, instruments, and needle counts were correct. The patient was transferred to the CICU in stable condition. Findings: OM target was small. Technically more difficult secondary to body habitus. XC: 57 min CPB: 76 min Drains: mediastinal x 1 pleural x 1 Disposition: to CVICU in stable condition Prisca Norris MD Apr 10, 2017 11:31
[2017-04-10] MEDS ORDERED: MIDAZOLAM HCL 5 MG/5 ML VIAL ONE ×2 (12:22→12:26)
[2017-04-10] MEDS ORDERED: fentaNYL CITRATE 1000 MCG/20 ML VIAL ONE (12:23)
--- NOTE | 2017-04-10 12:52 | RADRPT ---
EXAM DATE/TIME: 04/10/2017 12:21 [facility] COMPARISON: CHEST SINGLE AP, April 05, 2017, 18:50. INDICATIONS : Post CABG MEDICAL HISTORY : Carcinoma, vulva. asthma SURGICAL HISTORY : CABG. ENCOUNTER: Initial ACUITY: 1 day PAIN SCORE: Non-responsive. LOCATION: Bilateral chest FINDINGS: Portable AP view of the chest demonstrates a normal-sized cardiac silhouette and prominent mediastinu m following recent median sternotomy and CABG. Endotracheal tube is present with distal tip at the cl avicular head level measuring approximately 5.3 cm from the denis. Nasogastric tube courses beyond t he GE junction. Left chest tube is present and no pneumothorax is visualized. A mediastinal drain is in place. There is a left subclavian central line. The distal tip is not well-visualized but likely i n the left brachiocephalic vein. Lungs are underinflated with atelectasis at the bases. CONCLUSION: 1. Expected changes following recent median sternotomy and CABG. Left chest tube is present and no pn eumothorax is visualized. 2. Left subclavian central line distal tip is not well-visualized but felt to be in the left brachioc ephalic vein. Surinder Rouse MD on April 10, 2017 at 12:49 Board Certified Radiologist. This report was verified electronically.
--- NOTE | 2017-04-10 13:47 | HHI.PR ---
Subjective Remarks Follow-up CAD. Seen in CVICU status post CABG. Currently intubated but awake and following simple commands indicating he wants endotracheal tube out. He is currently on insulin drip. Discussed with RN Objective Vitals Vital Signs Date Time Temp Pulse Resp B/P Pulse Ox O2 Delivery O2 Flow Rate FiO2 04/10/17 12:14 99 60 04/10/17 12:00 93 100 04/10/17 05:00 57 04/10/17 04:00 59 04/10/17 03:00 98.3 73 18 128/66 98 04/10/17 03:00 81 04/10/17 02:00 48 04/10/17 01:00 50 04/10/17 00:00 46 04/09/17 23:00 48 04/09/17 23:00 97.9 67 18 130/66 98 04/09/17 22:00 55 04/09/17 21:00 56 04/09/17 20:00 48 04/09/17 19:00 98.2 63 18 149/73 97 04/09/17 19:00 49 04/09/17 18:44 12 04/09/17 18:00 46 04/09/17 17:00 52 04/09/17 16:00 60 04/09/17 15:00 97.7 60 20 128/71 97 04/09/17 15:00 76 04/09/17 14:00 62 I/O 04/09/17 04/09/17 04/09/17 04/10/17 04/10/17 04/10/17 07:00 15:00 23:00 07:00 15:00 23:00 Intake Total 623 ml 1353 ml 480 ml Output Total 550 ml 1000 ml 450 ml Balance 73 ml 353 ml 30 ml Intake Oral 480 ml 1170 ml 480 ml IV Total 143 ml 183 ml Output Urine Total 550 ml 1000 ml 450 ml # Voids 1 # Bowel Movements 0 Result Diagram: 04/09/17 0612 04/07/17 0615 Imaging Last Impressions Chest X-Ray 04/10/17 0000 Signed Impressions: Service Date/Time: Monday, April 10, 2017 12:21 - CONCLUSION: 1. Expected changes following recent median sternotomy and CABG. Left chest tube is present and no pneumothorax is visualized. 2. Left subclavian central line distal tip is not well-visualized but felt to be in the left brachiocephalic vein. Surinder Rouse MD Lower Extremity Ultrasound 04/07/17 0000 Signed Impressions: Service Date/Time: Friday, April 07, 2017 14:50 - CONCLUSION: Normal exam. Superficial venous measurements as above. Ghanshyam Gaming MD Head CT 04/07/17 0000 Signed Impressions: Service Date/Time: Friday, April 07, 2017 17:21 - CONCLUSION: Normal examination. Surinder Pelaez MD Carotid Artery Ultrasound 04/07/17 0000 Signed Impressions: Service Date/Time: Friday, April 07, 2017 15:09 - CONCLUSION: 1. Minimal atherosclerotic disease bilaterally. No significant stenosis is present with either internal carotid artery (less than 50%% stenosis). 2. There is antegrade flow in both vertebral arteries. Surinder Rouse MD CT Angiography 04/05/17 0000 Signed Impressions: Service Date/Time: Wednesday, April 05, 2017 21:45 - CONCLUSION: 1. Negative for pulmonary embolus. Minimal basal atelectasis or scarring. Mild coronary calcifications. Calcified granulomata in the lungs. Jaden West MD Objective Remarks GENERAL: Well-developed, obese in no distress currently intubated EYES: Pupils equal and round. No scleral icterus. No injection or drainage. CARDIOVASCULAR: Regular rate and rhythm. Prevena dressing intact. CT in place RESPIRATORY: No accessory muscle use. Clear to auscultation. Breath sounds equal bilaterally. MUSCULOSKELETAL: Extremities without clubbing, cyanosis with dry and clean dressing left lower extremity. Dad right lower extremity No obvious deformities. NEUROLOGICAL: Awake and alert. No obvious cranial nerve deficits. Moving all extremities upon commands Procedures Cardiac catheterization, CABG A/P Problem List: (1) NSTEMI (non-ST elevated myocardial infarction) ICD Code: I21.4 Status: Acute Assessment and Plan 61 y/o with no cardiac history presented to the ED for evaluation of chest pain: NSTEMI. Cardiac catheterization revealed multivessel CAD involving left main, LAD, diagonal and ramus. Status post CABG 3 vessels. Stable continue aspirin , Lipitor and amiodarone. Lopressor and Nitrate currently on hold. A1c 5.8. LDL 172. Risk factor modification. Acute respiratory failure secondary to surgery. Patient being weaned by CVT. Continue nebulizations and repeat chest x-ray in the morning Headache. He is nonfocal. Unremarkable head CT. Continues to have headache likely secondary to nitrate. Neurochecks. Fioricet and Tylenol. Anxiety. Stable Chronic medical conditions of asthma, rheumatoid arthritis, gouty and osteoarthritis. Stable DVT prophylaxis with SCD and early ambulation. Start pharmacological prophylaxis per CVt Discharge Planning Not stable for discharge Connor Gurrola MD Apr 10, 2017 13:47
[2017-04-10] MEDS: AMIODARONE 200 MG TAB PO SCH ×2 (14:00→21:16)
[2017-04-10] MEDS: ACETAMINOPHEN 1000 MG/100 ML VIAL IV SCH ×2 (15:15→19:41)
[2017-04-10] MEDS: ceFAZolin 2 GM PREMIX 50 ML IV SCH (16:07)
[2017-04-10] MEDS: RESP: ALBUTEROL 2.5 MG/IPRATROPIUM 0.5 MG NEB (SCH) NEB ×2 (16:28→22:23)
[2017-04-10] MEDS: oxyCODONE/ACETAMINOPHEN 5 MG/325 MG TAB PO PRN ×2 (19:41→23:08)
[2017-04-10] MEDS: SODIUM CHLORIDE 0.9% FLUSH 10 ML FLUSH IV FLUSH SCH (21:00)
[2017-04-10] MEDS: ATORVASTATIN 20 MG TAB PO SCH (21:16)
[2017-04-11] VITALS (19 sets, daily range): BP systolic 91–126; BP diastolic 52–72; PULSE 77–118; RESP 16–20; TEMP 97.9–98.6; O2SAT 94–99
[2017-04-11] MEDS: oxyCODONE/ACETAMINOPHEN 5 MG/325 MG TAB PO PRN ×6 (02:20→20:55)
[2017-04-11] MEDS: ACETAMINOPHEN 1000 MG/100 ML VIAL IV SCH ×2 (02:20→08:38)
[2017-04-11 03:39] LABS: HEMATOCRIT 38.7 % (39.0-51.0); MEAN CELL VOLUME 83.3 FL (80.0-100.0); MEAN CORPUSCULAR HEMOGLOBIN 27.6 PG (27.0-34.0); MEAN CORPUSCULAR HGB CONC 33.2 % (32.0-36.0); PLATELET COUNT 148 TH/MM3 (150-450); RED BLOOD COUNT 4.65 MIL/MM3 (4.50-5.90); RED CELL DISTRIBUTION WIDTH 14.5 % (11.6-17.2); REVIEW FLAG FINAL; WHITE BLOOD COUNT 18.1 TH/MM3 (4.0-11.0)
[2017-04-11 04:14] LABS: BICARBONATE 26.6 MEQ/L (21.0-32.0)
[2017-04-11] MEDS: RESP: ALBUTEROL 2.5 MG/IPRATROPIUM 0.5 MG NEB (SCH) NEB ×3 (04:41→21:41)
--- NOTE | 2017-04-11 05:00 | RADRPT ---
EXAM DATE/TIME: 04/11/2017 04:01 [facility] COMPARISON: CHEST SINGLE AP, April 10, 2017, 12:21. INDICATIONS : Short of breath. MEDICAL HISTORY : Carcinoma, vulva. asthma SURGICAL HISTORY : CABG. ENCOUNTER: Subsequent ACUITY: 1 week PAIN SCORE: 0/10 LOCATION: Bilateral chest FINDINGS: Left chest drainage tube remains projected lateral left midlung. Left subclavian catheter tip projec ts at the origin the superior vena cava. Interval extubation and removal of gastric tube. Patchy in filtrates in the left lower lung and in the right apex are more prominent and larger than on prior ex am. Both hemidiaphragms remain discernible. Stable cardiomegaly. CONCLUSION: Right apex and left lower lung infiltrates or atelectasis, stable from prior. Gilbert Chris MD on April 11, 2017 at 4:57 Board Certified Radiologist. This report was verified electronically.
[2017-04-11] MEDS: PANTOPRAZOLE SOD 40 MG DELAYED RELEASE TAB PO SCH (05:46)
[2017-04-11] MEDS: AMIODARONE 200 MG TAB PO SCH ×3 (05:47→20:55)
--- NOTE | 2017-04-11 07:31 | EKG ---
Date Performed: 04/11/2017 Time Performed: 04:28:08 PTAGE: 61 years EKG: CONSIDER ACUTE ST ELEVATION OH Sinus rhythm . Inferior infarct - age undetermined Lateral ST elevation, CONSIDER ACUTE INFARCT Low QRS voltages i n precordial leads Abnormal ECG Compared to the PREVIOUS TRACING Possible lateral OH is present. PREVIOUS TRACIN04/07/2017 06.19 DOCTOR: Gerard Mackey Interpretating Date/Time 04/11/2017 07:31:25
[2017-04-11] MEDS: ceFAZolin 2 GM PREMIX 50 ML IV SCH ×4 (08:37→23:40)
[2017-04-11] MEDS: ASPIRIN 81 MG CHEW TAB PO SCH (08:38)
[2017-04-11] MEDS: SODIUM CHLORIDE 0.9% FLUSH 10 ML FLUSH IV FLUSH SCH ×2 (08:38→20:59)
[2017-04-11] MEDS ORDERED: FUROSEMIDE 20 MG/2 ML VIAL IV PUSH ONE (09:00)
[2017-04-11] MEDS ORDERED: GLUCAGON 1 MG/ML VIAL OTHER PRN (09:00)
[2017-04-11] MEDS ORDERED: BISACODYL 10 MG SUPP RECTAL PRN (09:00)
[2017-04-11] MEDS ORDERED: KETOROLAC TROMETHAMINE 30 MG/ML (IVP) VIAL IV PUSH ONE (09:00)
[2017-04-11] MEDS ORDERED: SOD PHOSPHATE/SOD BIPHOSPHATE (ADULT) ENEMA 133ML RECTAL PRN (09:00)
[2017-04-11] MEDS ORDERED: POTASSIUM CHLORIDE 10 MEQ CONTROLLED RELEASE TAB PO ONE (09:00)
[2017-04-11] MEDS ORDERED: DEXTROSE 50% IN WATER 50 ML VIAL(D50) IV PRN (09:00)
[2017-04-11] MEDS: MAGNESIUM HYDROXIDE SUSP 30 ML CUP PO SCH (09:09)
[2017-04-11] MEDS: MULTIVITAMINS/MINERALS THERAPEUTIC TAB PO SCH (09:09)
[2017-04-11] MEDS: METOPROLOL TARTRATE 25 MG TAB PO SCH ×2 (09:10→20:56)
[2017-04-11] MEDS ORDERED: PILL SPLITTER OTHER PRN (09:15)
[2017-04-11] MEDS: INSULIN ASPART SUPPLEMENTAL SCALE SQ SCH ×4 (10:16→20:58)
--- NOTE | 2017-04-11 12:47 | HHI.PR ---
Objective Vitals Vital Signs Date Time Temp Pulse Resp B/P Pulse Ox O2 Delivery O2 Flow Rate FiO2 04/11/17 09:08 20 04/11/17 09:08 20 04/11/17 07:45 98.0 84 20 123/70 99 04/11/17 07:37 99 Nasal Cannula 3.00 04/11/17 07:00 85 04/11/17 03:17 84 04/11/17 03:15 97.9 87 18 91/60 97 Arterial Line 04/10/17 23:00 90 04/10/17 23:00 97.9 99 20 107/65 97 109/51 04/10/17 22:24 97 Nasal Cannula 3.00 04/10/17 19:53 97 Nasal Cannula 3.00 04/10/17 19:53 97.8 102 22 96/47 97 101/51 04/10/17 19:00 96 04/10/17 15:00 87 04/10/17 15:00 97.8 87 18 123/72 100 114/62 04/10/17 14:45 100 Nasal Cannula 3.00 04/10/17 14:45 97 Nasal Cannula 3 04/10/17 13:57 100 60 I/O 04/10/17 04/10/17 04/10/17 04/11/17 04/11/17 04/11/17 06:59 14:59 22:59 06:59 14:59 22:59 Intake Total 480 ml 2363 ml 2404 ml Output Total 450 ml 1330 ml 730 ml Balance 30 ml 1033 ml 1674 ml Intake Oral 480 ml 660 ml IV Total 2363 ml 1744 ml Output Urine Total 450 ml 950 ml 400 ml Gastric Drainage Total 0 ml Chest Tube Drainage Total 380 ml 330 ml # Bowel Movements 0 0 Result Diagram: 04/11/17 0325 04/11/17 0325 Objective Remarks GENERAL: Well-developed, obese in no distress currently intubated EYES: Pupils equal and round. No scleral icterus. No injection or drainage. CARDIOVASCULAR: Regular rate and rhythm. Prevena dressing intact. CT in place RESPIRATORY: No accessory muscle use. Clear to auscultation. Breath sounds equal bilaterally. MUSCULOSKELETAL: Extremities without clubbing, cyanosis with dry and clean dressing left lower extremity. Dad right lower extremity No obvious deformities. NEUROLOGICAL: Awake and alert. No obvious cranial nerve deficits. Moving all extremities upon commands Procedures Cardiac catheterization, CABG A/P Problem List: (1) NSTEMI (non-ST elevated myocardial infarction) ICD Code: I21.4 Status: Acute Assessment and Plan 61 y/o with no cardiac history presented to the ED for evaluation of chest pain: NSTEMI. Cardiac catheterization revealed multivessel CAD involving left main, LAD, diagonal and ramus. Status post CABG 3 vessels. Stable continue aspirin , Lipitor and amiodarone. Lopressor and Nitrate currently on hold. A1c 5.8. LDL 172. Risk factor modification. Acute respiratory failure secondary to surgery. Patient being weaned by CVT. Continue nebulizations and repeat chest x-ray in the morning Headache. He is nonfocal. Unremarkable head CT. Continues to have headache likely secondary to nitrate. Neurochecks. Fioricet and Tylenol. Anxiety. Stable Chronic medical conditions of asthma, rheumatoid arthritis, gouty and osteoarthritis. Stable DVT prophylaxis with SCD and early ambulation. Start pharmacological prophylaxis per CVt Discharge Planning Not stable for discharge Connor Gurrola MD Apr 11, 2017 12:46
--- NOTE | 2017-04-11 14:11 | HHI.PR ---
Subjective Remarks F/U CAD and ARF. Pleuritic CP controlled with meds. OOB to chair. On RA. No LOVELACE Objective Vitals Vital Signs Date Time Temp Pulse Resp B/P Pulse Ox O2 Delivery O2 Flow Rate FiO2 04/11/17 11:00 98.0 80 18 111/72 96 04/11/17 11:00 77 04/11/17 09:08 20 04/11/17 09:08 20 04/11/17 07:45 98.0 84 20 123/70 99 04/11/17 07:37 99 Nasal Cannula 3.00 04/11/17 07:00 85 04/11/17 03:17 84 04/11/17 03:15 97.9 87 18 91/60 97 Arterial Line 04/10/17 23:00 90 04/10/17 23:00 97.9 99 20 107/65 97 109/51 04/10/17 22:24 97 Nasal Cannula 3.00 04/10/17 19:53 97 Nasal Cannula 3.00 04/10/17 19:53 97.8 102 22 96/47 97 101/51 04/10/17 19:00 96 04/10/17 15:00 87 04/10/17 15:00 97.8 87 18 123/72 100 114/62 04/10/17 14:45 100 Nasal Cannula 3.00 04/10/17 14:45 97 Nasal Cannula 3 I/O 04/10/17 04/10/17 04/10/17 04/11/17 04/11/17 04/11/17 07:00 15:00 23:00 07:00 15:00 23:00 Intake Total 480 ml 2363 ml 2404 ml Output Total 450 ml 1330 ml 730 ml Balance 30 ml 1033 ml 1674 ml Intake Oral 480 ml 660 ml IV Total 2363 ml 1744 ml Output Urine Total 450 ml 950 ml 400 ml Gastric Drainage Total 0 ml Chest Tube Drainage Total 380 ml 330 ml # Bowel Movements 0 0 Result Diagram: 04/11/1732404/11/17324 Objective Remarks GENERAL: Well-developed, obese in no distress on room air SKin: Warm and dry no rash EYES: Pupils equal and round. No scleral icterus. No injection or drainage. CARDIOVASCULAR: Regular rate and rhythm. Prevena dressing intact. CT in place RESPIRATORY: No accessory muscle use. Clear to auscultation. Decreased Breath sounds equal bilaterally. MUSCULOSKELETAL: Extremities without clubbing, cyanosis with dry and clean dressing left lower extremity. NEUROLOGICAL: Awake and alert. No obvious cranial nerve deficits. Grossly nonfocal Procedures Cardiac catheterization, CABG A/P Problem List: (1) NSTEMI (non-ST elevated myocardial infarction) ICD Code: I21.4 Status: Acute Assessment and Plan 61 y/o with no cardiac history presented to the ED for evaluation of chest pain: NSTEMI. Cardiac catheterization revealed multivessel CAD involving left main, LAD, diagonal and ramus. Status post CABG 3 vessels. Stable continue aspirin , Lipitor and amiodarone. Lopressor restarted. A1c 5.8. LDL 172. Risk factor modification. Acute respiratory failure secondary to surgery. Resolved tolerating room air. Continue nebulization Leukocytosis likely reactive. Monitor respiratory status chest x-ray image interpreted by me with atelectasis. Incentive spirometry Headache secondary to nitrate. He is nonfocal. Unremarkable head CT. Resolved. Neurochecks. Anxiety. Stable Postoperative anemia secondary to acute blood loss. No gross bleeding. Hemodynamically stable. Chronic medical conditions of asthma, rheumatoid arthritis, gouty and osteoarthritis. Stable DVT prophylaxis with SCD and early ambulation. Start pharmacological prophylaxis per CVt Discharge Planning Not ready for discharge patient still has chest tube Abando,Connor Fuller MD Apr 11, 2017 14:11
--- NOTE | 2017-04-11 14:57 | PD.CAR.PN ---
CVT Progress Note Subjective/Hospital Course: 61/ male admitted to [facility] ED, then later transferred to [facility] with NSTEMI, pt underwent cardiac cath by Dr Miller, found to have multivessel disease EF 50% PMH: OA, RA, Gout, chronic back pain ( hx of back surgery) 04/09/17 Denies chest pain. No complaints 04/10 CABG x 3 ACE to LAD - good, SVG to OM- fair, SVG to D1 - good, L EVH 70min pump run, 1400cc crystalloid , 1000cc cell saver, EBL 250cc extubated after surgery 04/11 up in chair, doing well , having some break through pain started on BB, on ASA, statin gentle diuresis stable for transfer to stepdown unit NSR Objective: GENERAL: SKIN: Warm and dry. prevena to chest , lula wrap to left leg HEAD: Normocephalic. EYES: No scleral icterus. No injection or drainage. NECK: Supple, trachea midline. No JVD or lymphadenopathy. CARDIOVASCULAR: Regular rate and rhythm without murmurs, gallops, or rubs. RESPIRATORY: Breath sounds equal bilaterally. No accessory muscle use. chest tube to wall suction, no air leak , drained 330cc/ 12 hrs GASTROINTESTINAL: Abdomen soft, non-tender, nondistended. MUSCULOSKELETAL: No cyanosis, or edema. BACK: Nontender without obvious deformity. No CVA tenderness. Vital Signs Date Time Temp Pulse Resp B/P Pulse Ox O2 Delivery O2 Flow Rate FiO2 04/11/17 14:20 95 21 04/11/17 14:10 90 04/11/17 11:00 98.0 80 18 111/72 96 04/11/17 11:00 77 04/11/17 09:08 20 04/11/17 09:08 20 04/11/17 07:45 98.0 84 20 123/70 99 04/11/17 07:37 99 Nasal Cannula 3.00 04/11/17 07:00 85 04/11/17 03:17 84 04/11/17 03:15 97.9 87 18 91/60 97 Arterial Line 04/10/17 23:00 90 04/10/17 23:00 97.9 99 20 107/65 97 109/51 04/10/17 22:24 97 Nasal Cannula 3.00 04/10/17 19:53 97 Nasal Cannula 3.00 04/10/17 19:53 97.8 102 22 96/47 97 101/51 04/10/17 19:00 96 04/10/17 15:00 87 04/10/17 15:00 97.8 87 18 123/72 100 114/62 Labs: Laboratory Tests Test 04/11/17 03:25 White Blood Count 18.1 TH/MM3 (4.0-11.0) Red Blood Count 4.65 MIL/MM3 (4.50-5.90) Hemoglobin 12.9 GM/DL (13.0-17.0) Hematocrit 38.7 % (39.0-51.0) Mean Corpuscular Volume 83.3 FL (80.0-100.0) Mean Corpuscular Hemoglobin 27.6 PG (27.0-34.0) Mean Corpuscular Hemoglobin 33.2 % Concent (32.0-36.0) Red Cell Distribution Width 14.5 % (11.6-17.2) Platelet Count 148 TH/MM3 (150-450) Mean Platelet Volume 7.7 FL (7.0-11.0) Sodium Level 139 MEQ/L (136-145) Potassium Level 4.0 MEQ/L (3.5-5.1) Chloride Level 104 MEQ/L (98-107) Carbon Dioxide Level 26.6 MEQ/L (21.0-32.0) Anion Gap 8 MEQ/L (5-15) Blood Urea Nitrogen 14 MG/DL (7-18) Creatinine 1.18 MG/DL (0.60-1.30) Estimat Glomerular Filtration 63 ML/MIN (>89) Rate Random Glucose 140 MG/DL (74-106) Calcium Level 8.2 MG/DL (8.5-10.1) Magnesium Level 2.0 MG/DL (1.5-2.5) Result Diagram: 04/11/1732404/11/17324 Telemetry: NSR (1) ACS (acute coronary syndrome) (2) NSTEMI (non-ST elevated myocardial infarction) (3) S/P CABG x 3 Plan: ASA, statin , BB gentle diuresis pain control OOB, ambulate leave chest tubes in pulm toileting (4) Multi-vessel coronary artery stenosis (5) Arthritis Plan: pain control Mell Torres Apr 11, 2017 14:57
[2017-04-11] MEDS: MORPHINE SULFATE 4 MG/ML INJ IV PUSH PRN ×2 (17:31→22:03)
[2017-04-11] MEDS: SENNOSIDES 8.6 MG TAB PO SCH (20:55)
[2017-04-11] MEDS: ATORVASTATIN 20 MG TAB PO SCH (20:55)
[2017-04-11] MEDS: DOCUSATE SODIUM 100 MG CAP PO SCH (20:55)
[2017-04-11] MEDS: ACETAMIN 325 MG/BUTALBITAL 50 MG/CAFFEINE 40 MG TAB PO PRN (21:52)
[2017-04-12] VITALS (23 sets, daily range): BP systolic 114–138; BP diastolic 71–78; PULSE 53–110; RESP 16–18; TEMP 98–98.4; O2SAT 5–100
[2017-04-12] MEDS: oxyCODONE/ACETAMINOPHEN 5 MG/325 MG TAB PO PRN ×5 (01:04→19:59)
[2017-04-12] MEDS: INSULIN ASPART SUPPLEMENTAL SCALE SQ SCH ×5 (02:00→20:41)
[2017-04-12] MEDS: MORPHINE SULFATE 4 MG/ML INJ IV PUSH PRN (04:06)
[2017-04-12] MEDS: ACETAMIN 325 MG/BUTALBITAL 50 MG/CAFFEINE 40 MG TAB PO PRN ×2 (05:03→18:04)
[2017-04-12] MEDS: AMIODARONE 200 MG TAB PO SCH ×3 (05:04→22:01)
[2017-04-12] MEDS: PANTOPRAZOLE SOD 40 MG DELAYED RELEASE TAB PO SCH (05:04)
[2017-04-12 05:18] LABS: AUTOMATED NEUTROPHIL # 13.6 TH/MM3 (1.8-7.7); BASOPHIL % 0.1 % (0.0-2.0); HEMATOCRIT 37.3 % (39.0-51.0); LYMPH % 8.5 % (9.0-44.0); LYMPHOCYTE # 1.5 TH/MM3 (1.0-4.8); MEAN CELL VOLUME 84.4 FL (80.0-100.0); MEAN CORPUSCULAR HEMOGLOBIN 28.1 PG (27.0-34.0); MEAN CORPUSCULAR HGB CONC 33.3 % (32.0-36.0); MONO % 12.9 % (0.0-8.0); NEUT % 78.5 % (16.0-70.0); PLATELET COUNT 137 TH/MM3 (150-450); RED BLOOD COUNT 4.42 MIL/MM3 (4.50-5.90); RED CELL DISTRIBUTION WIDTH 14.5 % (11.6-17.2); WHITE BLOOD COUNT 17.3 TH/MM3 (4.0-11.0)
[2017-04-12 05:23] LABS: HEMO FLAGS AUTO DIFF
[2017-04-12 05:49] LABS: BICARBONATE 27.1 MEQ/L (21.0-32.0); MAGNESIUM 2.1 MG/DL (1.5-2.5)
[2017-04-12 07:06] LABS: PLATELET ESTIMATE SMEAR LOW (NORMAL); PLATELET MORPHOLOGY NORMAL (NORMAL); SCAN/DIFF AUTO DIFF CONFIRMED
[2017-04-12] MEDS: RESP: ALBUTEROL 2.5 MG/IPRATROPIUM 0.5 MG NEB (SCH) NEB ×3 (07:48→19:31)
[2017-04-12] MEDS: MULTIVITAMINS/MINERALS THERAPEUTIC TAB PO SCH (07:58)
[2017-04-12] MEDS: MAGNESIUM HYDROXIDE SUSP 30 ML CUP PO SCH (07:58)
[2017-04-12] MEDS: METOPROLOL TARTRATE 25 MG TAB PO SCH ×2 (07:58→19:58)
[2017-04-12] MEDS: POLYETHYLENE GLYCOL 17 GM PKG PO SCH (07:58)
[2017-04-12] MEDS: ASPIRIN 81 MG CHEW TAB PO SCH (07:58)
[2017-04-12] MEDS: DOCUSATE SODIUM 100 MG CAP PO SCH ×2 (07:58→19:58)
[2017-04-12] MEDS: SODIUM CHLORIDE 0.9% FLUSH 10 ML FLUSH IV FLUSH SCH ×2 (07:59→19:59)
--- NOTE | 2017-04-12 09:56 | HHI.PR ---
Subjective Remarks F/U CABG and leukocytosis. Slept on the chair. Pain under control. Coughing but does not look at sputum. No fever, chills, UTI sxs and diarrhea. Seen with Objective Vitals Vital Signs Date Time Temp Pulse Resp B/P Pulse Ox O2 Delivery O2 Flow Rate FiO2 04/12/17 08:32 16 04/12/17 08:00 98.2 84 18 133/78 100 04/12/17 08:00 85 04/12/17 07:50 94 21 04/12/17 07:27 Room Air 04/12/17 06:34 18 04/12/17 05:08 91 04/12/17 04:58 18 04/12/17 04:00 89 04/12/17 03:00 89 04/12/17 03:00 98.4 91 18 129/77 96 04/12/17 02:00 92 04/12/17 01:00 88 04/12/17 00:00 92 04/11/17 23:41 98.6 98 18 116/52 95 04/11/17 23:00 95 04/11/17 22:00 118 04/11/17 21:42 94 21 04/11/17 21:00 98 04/11/17 20:00 90 04/11/17 19:45 Room Air 04/11/17 19:30 98.4 98 20 126/60 96 04/11/17 19:00 89 04/11/17 18:00 92 04/11/17 17:00 101 04/11/17 16:00 91 04/11/17 15:00 98.1 94 16 119/60 95 04/11/17 15:00 93 04/11/17 14:20 95 21 04/11/17 14:10 90 04/11/17 11:00 98.0 80 18 111/72 96 04/11/17 11:00 77 I/O 04/11/17 04/11/17 04/11/17 04/12/17 04/12/17 04/12/17 06:59 14:59 22:59 06:59 14:59 22:59 Intake Total 2404 ml 770 ml 480 ml Output Total 730 ml 600 ml 435 ml Balance 1674 ml 170 ml 45 ml Intake Oral 660 ml 720 ml 480 ml IV Total 1744 ml 50 ml Output Urine Total 400 ml 400 ml 335 ml Chest Tube Drainage Total 330 ml 200 ml 100 ml # Bowel Movements 0 Result Diagram: 04/12/17 0456 04/12/17 0456 Imaging Last Impressions Chest X-Ray 04/11/17 0500 Signed Impressions: Service Date/Time: Tuesday, April 11, 2017 04:01 - CONCLUSION: Right apex and left lower lung infiltrates or atelectasis, stable from prior. Gilbert Chris MD Lower Extremity Ultrasound 04/07/17 0000 Signed Impressions: Service Date/Time: Friday, April 07, 2017 14:50 - CONCLUSION: Normal exam. Superficial venous measurements as above. Ghanshyam Gaming MD Head CT 04/07/17 0000 Signed Impressions: Service Date/Time: Friday, April 07, 2017 17:21 - CONCLUSION: Normal examination. Surinder Pelaez MD Carotid Artery Ultrasound 04/07/17 0000 Signed Impressions: Service Date/Time: Friday, April 07, 2017 15:09 - CONCLUSION: 1. Minimal atherosclerotic disease bilaterally. No significant stenosis is present with either internal carotid artery (less than 50%% stenosis). 2. There is antegrade flow in both vertebral arteries. Surinder Rouse MD CT Angiography 04/05/17 0000 Signed Impressions: Service Date/Time: Wednesday, April 05, 2017 21:45 - CONCLUSION: 1. Negative for pulmonary embolus. Minimal basal atelectasis or scarring. Mild coronary calcifications. Calcified granulomata in the lungs. Jaden West MD Objective Remarks GENERAL: Well-developed, obese in no distress on room air SKin: Warm and dry no rash EYES: Pupils equal and round. No scleral icterus. No injection or drainage. CARDIOVASCULAR: Regular rate and rhythm. Prevena dressing intact. CT in place RESPIRATORY: No accessory muscle use. Clear to auscultation. Decreased Breath sounds equal bilaterally. MUSCULOSKELETAL: Extremities without clubbing, cyanosis with dry and clean dressing left lower extremity. Bilateral lower extremity edema NEUROLOGICAL: Awake and alert. No obvious cranial nerve deficits. Grossly nonfocal Procedures Cardiac catheterization, CABG A/P Problem List: (1) NSTEMI (non-ST elevated myocardial infarction) ICD Code: I21.4 Status: Acute Assessment and Plan 61 y/o with no cardiac history presented to the ED for evaluation of chest pain: NSTEMI. Cardiac catheterization revealed multivessel CAD involving left main, LAD, diagonal and ramus. Status post CABG 3 vessels. Stable continue aspirin , Lipitor and amiodarone. Lopressor restarted. A1c 5.8. LDL 172. Risk factor modification. Wd care. CT drained 300 ml. Acute respiratory failure secondary to surgery. Resolved tolerating room air. Continue nebulization Leukocytosis likely reactive. Slightly improved. Monitor respiratory status chest x-ray image interpreted by me with atelectasis. Incentive spirometry. Rpt CBc in am Headache secondary to nitrate. He is nonfocal. Unremarkable head CT. Resolved. Neurochecks. Anxiety. Stable Postoperative anemia secondary to acute blood loss. No gross bleeding. Hemodynamically stable. JEAN s/p lasix. Nonoliguric. Avoid nephrotoxins. Rpt BMP in am Chronic medical conditions of asthma, rheumatoid arthritis, gouty and osteoarthritis. Stable DVT prophylaxis with SCD and early ambulation. Start pharmacological prophylaxis per CVt Discharge Planning Not ready for discharge patient still has chest tube Abando,Connor Fuller MD Apr 12, 2017 09:56
--- NOTE | 2017-04-12 12:20 | PD.CAR.PN ---
CVT Progress Note Subjective/Hospital Course: 61/ male admitted to [place] ED, then later transferred to [facility] with NSTEMI, pt underwent cardiac cath by Dr Miller, found to have multivessel disease EF 50% PMH: OA, RA, Gout, chronic back pain ( hx of back surgery) 04/09/17 Denies chest pain. No complaints 04/10 CABG x 3 ACE to LAD - good, SVG to OM- fair, SVG to D1 - good, L EVH 70min pump run, 1400cc crystalloid , 1000cc cell saver, EBL 250cc extubated after surgery 04/11 up in chair, doing well , having some break through pain started on BB, on ASA, statin gentle diuresis stable for transfer to stepdown unit NSR 04/12 chest tubes removed without difficulty on room air continue pulm toileting dc IV pain med continue ambulation / creatinine up to 1.39 hold on diuresis today, recheck in am Objective: Vital Signs Date Time Temp Pulse Resp B/P Pulse Ox O2 Delivery O2 Flow Rate FiO2 04/12/17 12:00 98.4 75 18 114/75 98 04/12/17 12:00 96 04/12/17 11:00 72 04/12/17 10:00 80 04/12/17 09:00 110 04/12/17 08:32 16 04/12/17 08:00 98.2 84 18 133/78 100 04/12/17 08:00 85 04/12/17 07:50 94 21 04/12/17 07:27 Room Air 04/12/17 07:00 90 04/12/17 06:34 18 04/12/17 05:08 91 04/12/17 04:58 18 04/12/17 04:00 89 04/12/17 03:00 89 04/12/17 03:00 98.4 91 18 129/77 96 04/12/17 02:00 92 04/12/17 01:00 88 04/12/17 00:00 92 04/11/17 23:41 98.6 98 18 116/52 95 04/11/17 23:00 95 04/11/17 22:00 118 04/11/17 21:42 94 21 04/11/17 21:00 98 04/11/17 20:00 90 04/11/17 19:45 Room Air 04/11/17 19:30 98.4 98 20 126/60 96 04/11/17 19:00 89 04/11/17 18:00 92 04/11/17 17:00 101 04/11/17 16:00 91 04/11/17 15:00 98.1 94 16 119/60 95 04/11/17 15:00 93 04/11/17 14:20 95 21 04/11/17 14:10 90 Labs: Laboratory Tests Test 04/12/17 04:56 White Blood Count 17.3 TH/MM3 (4.0-11.0) Red Blood Count 4.42 MIL/MM3 (4.50-5.90) Hemoglobin 12.4 GM/DL (13.0-17.0) Hematocrit 37.3 % (39.0-51.0) Mean Corpuscular Volume 84.4 FL (80.0-100.0) Mean Corpuscular Hemoglobin 28.1 PG (27.0-34.0) Mean Corpuscular Hemoglobin 33.3 % Concent (32.0-36.0) Red Cell Distribution Width 14.5 % (11.6-17.2) Platelet Count 137 TH/MM3 (150-450) Mean Platelet Volume 7.7 FL (7.0-11.0) Neutrophils (%) (Auto) 78.5 % (16.0-70.0) Lymphocytes (%) (Auto) 8.5 % (9.0-44.0) Monocytes (%) (Auto) 12.9 % (0.0-8.0) Eosinophils (%) (Auto) 0.0 % (0.0-4.0) Basophils (%) (Auto) 0.1 % (0.0-2.0) Neutrophils # (Auto) 13.6 TH/MM3 (1.8-7.7) Lymphocytes # (Auto) 1.5 TH/MM3 (1.0-4.8) Monocytes # (Auto) 2.2 TH/MM3 (0-0.9) Eosinophils # (Auto) 0.0 TH/MM3 (0-0.4) Basophils # (Auto) 0.0 TH/MM3 (0-0.2) CBC Comment AUTO DIFF Differential Comment AUTO DIFF CONFIRMED Platelet Estimate LOW (NORMAL) Platelet Morphology Comment NORMAL (NORMAL) Red Cell Morphology Comment NORMAL (NORMAL) Sodium Level 137 MEQ/L (136-145) Potassium Level 4.0 MEQ/L (3.5-5.1) Chloride Level 102 MEQ/L (98-107) Carbon Dioxide Level 27.1 MEQ/L (21.0-32.0) Anion Gap 8 MEQ/L (5-15) Blood Urea Nitrogen 21 MG/DL (7-18) Creatinine 1.39 MG/DL (0.60-1.30) Estimat Glomerular Filtration 52 ML/MIN (>89) Rate Random Glucose 172 MG/DL (74-106) Calcium Level 8.4 MG/DL (8.5-10.1) Magnesium Level 2.1 MG/DL (1.5-2.5) Result Diagram: 04/12/17 0456 04/12/17 0456 Telemetry: NSR (1) ACS (acute coronary syndrome) (2) NSTEMI (non-ST elevated myocardial infarction) (3) S/P CABG x 3 Plan: ASA, statin , BB pain control OOB, ambulate chest tubes removed pulm toileting (4) Multi-vessel coronary artery stenosis (5) Arthritis Plan: pain control (6) Acute kidney injury Plan: avoid nephrotoxins, recheck in Mell Dunham Apr 12, 2017 12:20
--- NOTE | 2017-04-12 12:27 | HHI.FF ---
Face to Face Verification Diagnosis: (1) NSTEMI (non-ST elevated myocardial infarction) (2) Arthritis (3) Multi-vessel coronary artery stenosis (4) Acute kidney injury (5) S/P CABG x 3 Home Health Nursing Order: Signs/symptoms of disease process Medication education-adverse effect Wound care and dressing changes Nursing assessment with vital signs Instructions: Heart and Vascular Surgery patients *Special attention to sternal dressing Mandatory frequency Assess and evaluation, 4 days in a row The next week 3X week 2 times a week for 4 weeks 1 time a week for 5 weeks Schedule Heart and Vascular patients for full 60 day certification period Initial visit Review Open Heart Surgery Discharge Instructions (Sternal precautions, Activity, Elastic hose, Incision care, Driving, Incentive spirometry, Smoking, [place], Work and other) Need Betadine to paint incision Medication reconciliation Importance of follow up care/ check on appointments Make calendar record temperature daily When to call [facility] nurse, review instructions, phone list Incentive Spirometry, demonstration Visit 1- Begin discharge instruction for patient family and/ or caregiver using teach back method- Signs and symptoms of infection Disease characteristics Medicines and side effects Foods and nutrition/ appetite Infection control/ hand washing/ hygiene Visit 2- Continue teaching Discharge instructions- include additional information on smoking cessation , sternal dressing (sternal vac) Visit 3- Continue teaching- Cough and deep breathing, incision monitoring. Choose my plate Visit 4- Continue teaching- Discuss limitations Discuss how they are feeling Discuss progress toward goals Remaining visits- continue teaching and monitoring PREVENA Single Use Negative Wound Therapy System Caregiver Instruction Sheet 1. A Prevena dressing system was applied to the chest incision during surgery , to promote wound healing. It works via a suction device (negative pressure wound therapy) to remove low to moderate levels of exudate (drainage) and infectious materials. We recommend that the device stay in place for up to seven days, from day of surgery. 2. Day of Surgery___/ Day of Removal / 3. The dressing should only be removed by a health group care worker. Please arrange removal of device to coincide with Home Health visit and or with Nursing staff at Rehab 4. If skin reddening or irritation of skin occurs, or excessive drainage, please notify the Cardiovascular Surgeons office at [phone]. 5. Light showering is permissible; however the pump should be disconnected and placed in safe location, where it will not get wet. The dressing should not be exposed to direct spray or submerged in water. No bath tub / shower only. Ensure the end of the tubing attached to the dressing is facing down so that water does not enter the top of the tube. 6. To remove Prevena dressing: press purple button to turn off device / remove the suction. Then disconnect the tubing from the pump. The fixation strips should be stretched away from the skin and the dressing lifted at one corner and peeled back until it has been fully removed. 7. After removal, it is ok to shower daily using liquid dial soap and clean wash cloth, rinse and pat dry, and leave incision open to air dry. For any concerns regarding Prevena dressing, and or wounds, please contact Ellen Hoang, patient navigator at [phone] or notify the Cardiovascular Surgeons office at [phone]. Incentive spirometry Q1 hr x 10, while awake, also use acapella device hourly whole awake Sternal Breast Bone Precautions: NO pushing or pulling, ( pt must use sternal pillow to support chest with all activities and with coughing ( takes up to 3 months breast bone to heal ) Daily incision care: ok to shower daily, no tub bath. Wash all incisions with liquid dial soap, clean wash cloth to each site, rinse and pat dry. Observe for any signs of infection, such as drainage which is dark yellow, hamm, green or foul smelling. Immediately report to the surgeon any drainage from the chest incision, or legs, and for any abnormal drainage from the chest tube sites. Notify surgeon if any temp >101.5 degrees F. When specialty dressing removed/ or if you do not have one, continue to shower daily as above, then rinse and pat incision dry and paint with betadine daily x 5 days. Allow steri strips to fall off if you have any. Avoid lotions, creams, salves, oils, etc. for the first month Please see attached forms for additional instructions regarding post Open Heart specialty wound vacuum dressings. HEIDI or Prevena , Dressing to be removed by Nursing staff on _04/17/[address] Norris patients , please obtain CBC, BMP, PA & Lat CXR in 2 weeks, results to Dr. Norris ( prescription will be given) ( ) (Tele: [phone]) , F/U appointment: as per [place] instructions: PCP in 2 weeks, CV surgeon 2 weeks, Implementation Manager 3-4 weeks For any questions regarding incisions/ dressing / meds / post op care or above Symptoms, Monday 8am-5pm Heart & Vascular Surgery Office ( Dr. Blair & Dr. Norris), After Hours / Nights (5pm -8am) Weekends and Holidays Please call [facility] ([facility]) Charge Nurse I have seen patient Cruz Burch on 04/12/17. My clinical findings support the need for the requested home health care services because: Deconditioned w/ increased weakness I certify that my clinical findings support that this patient is homebound because: Post-op weakness Hx COPD- exertion dyspnea/weakness Mell Torres Apr 12, 2017 12:27
[2017-04-12] MEDS ORDERED: METOPROLOL TARTRATE 25 MG TAB PO ONE (12:30)
[2017-04-12] MEDS: SENNOSIDES 8.6 MG TAB PO SCH (19:58)
[2017-04-12] MEDS: ATORVASTATIN 20 MG TAB PO SCH (19:58)
[2017-04-13] VITALS (23 sets, daily range): BP systolic 98–142; BP diastolic 53–86; PULSE 18–106; RESP 16–20; TEMP 97.6–98.4; O2SAT 96–99
[2017-04-13] MEDS ORDERED: diphenhydrAMINE HCL 25 MG CAP PO ONE (01:45)
[2017-04-13] MEDS: oxyCODONE/ACETAMINOPHEN 5 MG/325 MG TAB PO PRN ×5 (02:25→23:57)
[2017-04-13 05:33] LABS: AUTOMATED NEUTROPHIL # 11.3 TH/MM3 (1.8-7.7); BASOPHIL % 0.1 % (0.0-2.0); EOSINOPHIL % 0.1 % (0.0-4.0); HEMATOCRIT 33.4 % (39.0-51.0); HEMO FLAGS DIFF FINAL; LYMPH % 12.8 % (9.0-44.0); LYMPHOCYTE # 1.9 TH/MM3 (1.0-4.8); MEAN CELL VOLUME 83.7 FL (80.0-100.0); MEAN CORPUSCULAR HEMOGLOBIN 28.1 PG (27.0-34.0); MEAN CORPUSCULAR HGB CONC 33.6 % (32.0-36.0); MONO % 10.1 % (0.0-8.0); NEUT % 76.9 % (16.0-70.0); PLATELET COUNT 132 TH/MM3 (150-450); RED BLOOD COUNT 3.99 MIL/MM3 (4.50-5.90); RED CELL DISTRIBUTION WIDTH 14.5 % (11.6-17.2); WHITE BLOOD COUNT 14.7 TH/MM3 (4.0-11.0)
[2017-04-13 05:59] LABS: BICARBONATE 27.9 MEQ/L (21.0-32.0); MAGNESIUM 2.3 MG/DL (1.5-2.5); POTASSIUM 4.3 MEQ/L (3.5-5.1)
[2017-04-13] MEDS: AMIODARONE 200 MG TAB PO SCH ×3 (06:08→20:34)
[2017-04-13] MEDS: PANTOPRAZOLE SOD 40 MG DELAYED RELEASE TAB PO SCH (06:08)
[2017-04-13] MEDS: INSULIN ASPART SUPPLEMENTAL SCALE SQ SCH ×5 (06:16→22:48)
--- NOTE | 2017-04-13 06:18 | RADRPT ---
EXAM DATE/TIME: 04/13/2017 05:13 [place] COMPARISON: CHEST SINGLE AP, April 11, 2017, 4:01. INDICATIONS : Shortness of breath, possible pulmonary disease. MEDICAL HISTORY : Gastroesophageal reflux disease. Arthritis. SURGICAL HISTORY : CABG. ENCOUNTER: Subsequent ACUITY: 4 - 6 days PAIN SCORE: 5/10 LOCATION: Bilateral chest FINDINGS: Interval removal of left chest drainage tube. Persistent opacities in the right upper lung, right in frahilar region and lateral left midlung. Cardiomegaly stable. CONCLUSION: No evidence of pneumothorax status post removal of chest drainage tube. Bilateral infiltrates stable . Gilbert Chris MD on April 13, 2017 at 6:16 Board Certified Radiologist. This report was verified electronically.
[2017-04-13] MEDS: DOCUSATE SODIUM 100 MG CAP PO SCH ×2 (07:40→20:34)
[2017-04-13] MEDS: POLYETHYLENE GLYCOL 17 GM PKG PO SCH ×2 (07:40→14:24)
[2017-04-13] MEDS: METOPROLOL TARTRATE 25 MG TAB PO SCH ×2 (07:40→20:34)
[2017-04-13] MEDS: MULTIVITAMINS/MINERALS THERAPEUTIC TAB PO SCH (07:40)
[2017-04-13] MEDS: MAGNESIUM HYDROXIDE SUSP 30 ML CUP PO SCH (07:40)
[2017-04-13] MEDS: ACETAMIN 325 MG/BUTALBITAL 50 MG/CAFFEINE 40 MG TAB PO PRN (07:41)
[2017-04-13] MEDS: SODIUM CHLORIDE 0.9% FLUSH 10 ML FLUSH IV FLUSH SCH ×2 (07:41→20:35)
[2017-04-13] MEDS: ASPIRIN 81 MG CHEW TAB PO SCH (07:41)
[2017-04-13] MEDS: RESP: ALBUTEROL 2.5 MG/IPRATROPIUM 0.5 MG NEB (SCH) NEB ×3 (08:24→20:10)
[2017-04-13] MEDS: LEVOFLOXACIN 500 MG PREMIX INJ 100 ML IV SCH (09:28)
--- NOTE | 2017-04-13 10:43 | PD.CAR.PN ---
CVT Progress Note Subjective/Hospital Course: 61/ male admitted to [place] ED, then later transferred to [facility] with NSTEMI, pt underwent cardiac cath by Dr Miller, found to have multivessel disease EF 50% PMH: OA, RA, Gout, chronic back pain ( hx of back surgery) 04/09/17 Denies chest pain. No complaints 04/10 CABG x 3 ACE to LAD - good, SVG to OM- fair, SVG to D1 - good, L EVH 70min pump run, 1400cc crystalloid , 1000cc cell saver, EBL 250cc extubated after surgery 04/11 up in chair, doing well , having some break through pain started on BB, on ASA, statin gentle diuresis stable for transfer to stepdown unit NSR 04/12 chest tubes removed without difficulty on room air continue pulm toileting dc IV pain med continue ambulation / creatinine up to 1.39 hold on diuresis today, recheck in am 04/13 pt increased swelling lower ext, with some blistering around EVH sites dressing to prior chest tube sites intact, no further bleeding will leave in place today no BM since surgery, add ducolax supp add BID diuretics , may need lula wraps to lower ext CS=XR noted bilateral infiltrates / check sputum / add levaquin Objective: GENERAL: SKIN: Warm and dry. prevena to chest , incisions intact left leg with some surrounding blistering HEAD: Normocephalic. EYES: No scleral icterus. No injection or drainage. NECK: Supple, trachea midline. No JVD or lymphadenopathy. CARDIOVASCULAR: Regular rate and rhythm without murmurs, gallops, or rubs. RESPIRATORY: diminished in bases Breath sounds equal bilaterally. No accessory muscle use. GASTROINTESTINAL: Abdomen soft, non-tender, nondistended. MUSCULOSKELETAL: No cyanosis, or edema. BACK: Nontender without obvious deformity. No CVA tenderness. Vital Signs Date Time Temp Pulse Resp B/P Pulse Ox O2 Delivery O2 Flow Rate FiO2 04/13/17 08:37 16 04/13/17 08:31 98 04/13/17 08:00 98.3 84 16 142/53 98 04/13/17 08:00 87 04/13/17 07:17 Room Air 04/13/17 05:23 18 04/13/17 04:48 97 04/13/17 04:22 80 04/13/17 03:00 82 04/13/17 03:00 98.2 87 18 98/60 97 04/12/17 23:30 98.1 90 18 138/77 95 04/12/17 23:00 81 04/12/17 21:59 18 04/12/17 19:31 94 21 04/12/17 19:00 98.1 53 18 117/71 100 04/12/17 19:00 85 04/12/17 19:00 Room Air 04/12/17 18:00 92 04/12/17 17:00 90 04/12/17 16:00 98.0 84 16 125/77 97 04/12/17 16:00 82 04/12/17 15:00 80 04/12/17 14:00 88 04/12/17 13:00 84 04/12/17 12:00 98.4 75 18 114/75 98 04/12/17 12:00 96 04/12/17 11:00 72 Labs: Laboratory Tests Test 04/13/17 04:55 White Blood Count 14.7 TH/MM3 (4.0-11.0) Red Blood Count 3.99 MIL/MM3 (4.50-5.90) Hemoglobin 11.2 GM/DL (13.0-17.0) Hematocrit 33.4 % (39.0-51.0) Mean Corpuscular Volume 83.7 FL (80.0-100.0) Mean Corpuscular Hemoglobin 28.1 PG (27.0-34.0) Mean Corpuscular Hemoglobin 33.6 % Concent (32.0-36.0) Red Cell Distribution Width 14.5 % (11.6-17.2) Platelet Count 132 TH/MM3 (150-450) Mean Platelet Volume 8.3 FL (7.0-11.0) Neutrophils (%) (Auto) 76.9 % (16.0-70.0) Lymphocytes (%) (Auto) 12.8 % (9.0-44.0) Monocytes (%) (Auto) 10.1 % (0.0-8.0) Eosinophils (%) (Auto) 0.1 % (0.0-4.0) Basophils (%) (Auto) 0.1 % (0.0-2.0) Neutrophils # (Auto) 11.3 TH/MM3 (1.8-7.7) Lymphocytes # (Auto) 1.9 TH/MM3 (1.0-4.8) Monocytes # (Auto) 1.5 TH/MM3 (0-0.9) Eosinophils # (Auto) 0.0 TH/MM3 (0-0.4) Basophils # (Auto) 0.0 TH/MM3 (0-0.2) CBC Comment DIFF FINAL Differential Comment Sodium Level 135 MEQ/L (136-145) Potassium Level 4.3 MEQ/L (3.5-5.1) Chloride Level 100 MEQ/L (98-107) Carbon Dioxide Level 27.9 MEQ/L (21.0-32.0) Anion Gap 7 MEQ/L (5-15) Blood Urea Nitrogen 21 MG/DL (7-18) Creatinine 1.17 MG/DL (0.60-1.30) Estimat Glomerular Filtration 63 ML/MIN (>89) Rate Random Glucose 146 MG/DL (74-106) Calcium Level 8.1 MG/DL (8.5-10.1) Magnesium Level 2.3 MG/DL (1.5-2.5) Result Diagram: 04/13/175 04/13/17 0455 (1) ACS (acute coronary syndrome) (2) NSTEMI (non-ST elevated myocardial infarction) (3) S/P CABG x 3 Plan: ASA, statin , BB pain control OOB, ambulate (4) Multi-vessel coronary artery stenosis (5) Arthritis Plan: pain control (6) Acute kidney injury Plan: avoid nephrotoxins, recheck in am / indices improved (7) Bilateral pulmonary infiltrates on chest x-ray Plan: pulm toileting continue nebs ezpap , acapella check sputum, add Mell Domingo Apr 13, 2017 10:43
[2017-04-13] MEDS: POTASSIUM CHLORIDE 10 MEQ CAP PO SCH ×2 (11:31→20:35)
[2017-04-13] MEDS: FUROSEMIDE 40 MG/4 ML VIAL IV PUSH SCH ×2 (11:31→17:15)
[2017-04-13] MEDS ORDERED: BISACODYL 10 MG SUPP RECTAL ONE (12:00)
--- NOTE | 2017-04-13 13:28 | HHI.PR ---
Subjective Remarks Patient says he is breathing better with the tube out, but is concerned that he has not had a bowel movement since admission. Has no recurrence of his original chest pain/shortness of breath Objective Vital Signs Date Time Temp Pulse Resp B/P Pulse Ox O2 Delivery O2 Flow Rate FiO2 04/13/17 12:38 16 04/13/17 12:00 83 04/13/17 12:00 98.4 84 16 117/74 99 04/13/17 11:00 86 04/13/17 10:00 86 04/13/17 09:00 82 04/13/17 08:37 16 04/13/17 08:31 98 04/13/17 08:00 98.3 84 16 142/53 98 04/13/17 08:00 87 04/13/17 07:17 Room Air 04/13/17 07:00 78 04/13/17 05:23 18 04/13/17 04:48 97 04/13/17 04:22 80 04/13/17 03:00 82 04/13/17 03:00 98.2 87 18 98/60 97 04/12/17 23:30 98.1 90 18 138/77 95 04/12/17 23:00 81 04/12/17 19:31 94 21 04/12/17 19:00 98.1 53 18 117/71 100 04/12/17 19:00 85 04/12/17 19:00 Room Air 04/12/17 18:00 92 04/12/17 17:00 90 04/12/17 16:00 98.0 84 16 125/77 97 04/12/17 16:00 82 04/12/17 15:00 80 04/12/17 14:00 88 I/O 04/12/17 04/12/17 04/12/17 04/13/17 04/13/17 04/13/17 07:00 15:00 23:00 07:00 15:00 23:00 Intake Total 480 ml 720 ml 480 ml Output Total 435 ml 650 ml 275 ml Balance 45 ml 70 ml 205 ml Intake Oral 480 ml 720 ml 480 ml Output Urine Total 335 ml 650 ml 275 ml Chest Tube Drainage Total 100 ml # Bowel Movements 0 Result Diagram: 04/13/17 0455 04/13/17 0455 Imaging Last 24 hours Impressions Chest X-Ray 04/13/17 0600 Signed Impressions: Service Date/Time: March 05:13 - CONCLUSION: No evidence of pneumothorax status post removal of chest drainage tube. Bilateral infiltrates stable. Gilbert Chris MD Objective Remarks GENERAL: No acute distress CARDIOVASCULAR: Regular rate and rhythm without murmurs, gallops, or rubs. No lower extremity edema RESPIRATORY: Breath sounds equal and clear bilaterally. Unlabored breathing GASTROINTESTINAL: Abdomen soft, non-tender, slightly distended. Bowel sounds positive MUSCULOSKELETAL: No cyanosis, or edema. Skin; left leg with bolus changes over site of cardiac catheter insertion; skin with dressing on chest after CT removal A/P Problem List: (1) Unstable angina ICD Code: I20.0 (2) NSTEMI (non-ST elevated myocardial infarction) ICD Code: I21.4 (3) Multi-vessel coronary artery stenosis ICD Code: I25.10 (4) Acute kidney injury ICD Code: N17.9 (5) Bilateral pulmonary infiltrates on chest x-ray ICD Code: R91.8 (6) ACS (acute coronary syndrome) ICD Code: I24.9 Assessment and Plan 61 y/o with no cardiac history presented to the ED for evaluation of chest pain: NSTEMI. Cardiac catheterization revealed multivessel CAD involving left main, LAD, diagonal and ramus. Status post CABG 3 vessels. Stable continue aspirin , Lipitor and amiodarone. Lopressor restarted. A1c 5.8. LDL 172. Risk factor modification. Wd care. Acute respiratory failure secondary to surgery. Resolved tolerating room air. Continue nebulization Leukocytosis likely reactive. Slightly improved. Incentive spirometry. Anxiety. Stable Postoperative anemia secondary to acute blood loss. No gross bleeding. Hemodynamically stable. JEAN s/p lasix. Nonoliguric. Avoid nephrotoxins. Chronic medical conditions of asthma, rheumatoid arthritis, gouty and osteoarthritis. Stable DVT prophylaxis pharmacological prophylaxis per CVt. D/C possibly anticipated on 04/15 if cleared by CTS. Neil Payne MD Apr 13, 2017 13:28
[2017-04-13] MEDS ORDERED: GLYCERIN ADULT 2 GM SUPP RECTAL ONE (13:30)
[2017-04-13] MEDS ORDERED: COMMODE 3-IN-11 MIS (16:20)
[2017-04-13] MEDS ORDERED: METHYLNALTREXONE BROMIDE 12 MG/0.6 ML VIAL SQ SCH (17:00)
[2017-04-13] MEDS: SENNOSIDES 8.6 MG TAB PO SCH (20:34)
[2017-04-13] MEDS: ATORVASTATIN 20 MG TAB PO SCH (20:41)
[2017-04-14] VITALS (27 sets, daily range): BP systolic 112–128; BP diastolic 65–81; PULSE 65–96; RESP 16–18; TEMP 97.2–98.6; O2SAT 92–99
[2017-04-14] MEDS: AMIODARONE 200 MG TAB PO SCH ×3 (04:29→20:01)
[2017-04-14] MEDS: oxyCODONE/ACETAMINOPHEN 5 MG/325 MG TAB PO PRN ×4 (04:29→21:17)
[2017-04-14] MEDS: PANTOPRAZOLE SOD 40 MG DELAYED RELEASE TAB PO SCH (04:29)
[2017-04-14] MEDS: INSULIN ASPART SUPPLEMENTAL SCALE SQ SCH ×4 (05:43→20:07)
[2017-04-14] MEDS: RESP: ALBUTEROL 2.5 MG/IPRATROPIUM 0.5 MG NEB (SCH) NEB ×3 (07:20→19:58)
[2017-04-14] MEDS: ASPIRIN 81 MG CHEW TAB PO SCH (07:50)
[2017-04-14] MEDS: METOPROLOL TARTRATE 25 MG TAB PO SCH ×2 (07:50→20:00)
[2017-04-14] MEDS: MULTIVITAMINS/MINERALS THERAPEUTIC TAB PO SCH (07:50)
[2017-04-14] MEDS: FUROSEMIDE 40 MG/4 ML VIAL IV PUSH SCH (07:50)
[2017-04-14] MEDS: POTASSIUM CHLORIDE 10 MEQ CAP PO SCH (07:50)
[2017-04-14] MEDS: POLYETHYLENE GLYCOL 17 GM PKG PO SCH (07:51)
[2017-04-14] MEDS: SODIUM CHLORIDE 0.9% FLUSH 10 ML FLUSH IV FLUSH SCH ×2 (07:51→20:01)
[2017-04-14] MEDS: MAGNESIUM HYDROXIDE SUSP 30 ML CUP PO SCH (07:51)
[2017-04-14] MEDS: DOCUSATE SODIUM 100 MG CAP PO SCH ×2 (07:51→20:01)
[2017-04-14 08:14] LABS: AUTOMATED NEUTROPHIL # 8.4 TH/MM3 (1.8-7.7); BASOPHIL % 0.1 % (0.0-2.0); EOSINOPHIL # 0.1 TH/MM3 (0-0.4); EOSINOPHIL % 0.5 % (0.0-4.0); HEMATOCRIT 31.8 % (39.0-51.0); HEMO FLAGS DIFF FINAL; LYMPH % 13.7 % (9.0-44.0); LYMPHOCYTE # 1.6 TH/MM3 (1.0-4.8); MEAN CELL VOLUME 83.3 FL (80.0-100.0); MEAN CORPUSCULAR HEMOGLOBIN 27.8 PG (27.0-34.0); MEAN CORPUSCULAR HGB CONC 33.4 % (32.0-36.0); NEUT % 72.7 % (16.0-70.0); PLATELET COUNT 166 TH/MM3 (150-450); RED BLOOD COUNT 3.82 MIL/MM3 (4.50-5.90); RED CELL DISTRIBUTION WIDTH 14.2 % (11.6-17.2); WHITE BLOOD COUNT 11.5 TH/MM3 (4.0-11.0)
[2017-04-14 08:19] LABS: BICARBONATE 30.6 MEQ/L (21.0-32.0); MAGNESIUM 2.5 MG/DL (1.5-2.5)
[2017-04-14 08:51] LABS: POTASSIUM 4.2 MEQ/L (3.5-5.1)
[2017-04-14] MEDS: LEVOFLOXACIN 500 MG PREMIX INJ 100 ML IV SCH (09:05)
[2017-04-14] MEDS: ACETAMIN 325 MG/BUTALBITAL 50 MG/CAFFEINE 40 MG TAB PO PRN ×2 (11:00→20:01)
[2017-04-14] MEDS ORDERED: ATOR20TA15 PO (14:55)
[2017-04-14] MEDS ORDERED: OXYC1TAB63 PO (14:55)
[2017-04-14] MEDS ORDERED: METO25TA3 PO (14:55)
[2017-04-14] MEDS ORDERED: AMIO200T PO (14:55)
[2017-04-14] MEDS ORDERED: THERM PO (14:55)
[2017-04-14] MEDS ORDERED: FURO1TAB60 PO (14:55)
[2017-04-14] MEDS ORDERED: DOCU1CAP39 PO (14:55)
[2017-04-14] MEDS ORDERED: POTA10CA PO (14:55)
[2017-04-14] MEDS ORDERED: ASPI81CH25 PO (14:55)
[2017-04-14] MEDS ORDERED: LEVA500T20 PO (15:02)
--- NOTE | 2017-04-14 15:09 | HHI.PR ---
Subjective Remarks Follow-up on CABG; patient reports having bowel movements last night, substantially from constipation. Reports no recurrence of his original chest pain. Objective Vital Signs Date Time Temp Pulse Resp B/P Pulse Ox O2 Delivery O2 Flow Rate FiO2 04/14/17 15:00 94 04/14/17 14:00 96 04/14/17 13:00 74 04/14/17 12:12 98.6 80 16 126/81 96 04/14/17 12:00 76 04/14/17 11:38 16 04/14/17 11:00 82 04/14/17 10:00 78 04/14/17 09:39 16 04/14/17 09:00 90 04/14/17 08:00 82 04/14/17 08:00 97.8 86 16 128/70 96 04/14/17 07:24 98 04/14/17 07:00 78 04/14/17 07:00 Room Air 04/14/17 06:20 82 04/14/17 05:43 18 04/14/17 04:03 83 04/14/17 03:04 97.2 93 18 112/65 93 04/14/17 03:01 78 04/14/17 01:00 92 04/14/17 00:00 82 04/13/17 23:21 97.6 18 18 111/63 99 04/13/17 23:00 85 04/13/17 22:00 82 04/13/17 21:00 106 04/13/17 21:00 97.8 101 20 107/59 97 04/13/17 20:10 96 04/13/17 20:00 88 04/13/17 19:30 Room Air 04/13/17 19:00 87 04/13/17 18:00 96 04/13/17 17:00 94 04/13/17 16:00 87 04/13/17 16:00 98.2 86 16 110/86 99 I/O 04/13/17 04/13/17 04/13/17 04/14/17 04/14/17 04/14/17 07:00 15:00 23:00 07:00 15:00 23:00 Intake Total 480 ml 760 ml 450 ml Output Total 275 ml 875 ml 300 ml Balance 205 ml -115 ml 150 ml Intake Oral 480 ml 660 ml 450 ml IV Total 100 ml Output Urine Total 275 ml 875 ml 300 ml # Voids 5 # Bowel Movements 1 3 Result Diagram: 04/14/17 0536 04/14/17 0536 Imaging Last Impressions Chest X-Ray 04/13/17 0600 Signed Impressions: Service Date/Time: March 05:13 - CONCLUSION: No evidence of pneumothorax status post removal of chest drainage tube. Bilateral infiltrates stable. Gilbert Chris MD Lower Extremity Ultrasound 04/07/17 0000 Signed Impressions: Service Date/Time: Friday, April 07, 2017 14:50 - CONCLUSION: Normal exam. Superficial venous measurements as above. Ghanshyam Gaming MD Head CT 04/07/17 0000 Signed Impressions: Service Date/Time: Friday, April 07, 2017 17:21 - CONCLUSION: Normal examination. Surinder Pelaez MD Carotid Artery Ultrasound 04/07/17 0000 Signed Impressions: Service Date/Time: Friday, April 07, 2017 15:09 - CONCLUSION: 1. Minimal atherosclerotic disease bilaterally. No significant stenosis is present with either internal carotid artery (less than 50%% stenosis). 2. There is antegrade flow in both vertebral arteries. Surinder Rouse MD CT Angiography 04/05/17 0000 Signed Impressions: Service Date/Time: Wednesday, April 05, 2017 21:45 - CONCLUSION: 1. Negative for pulmonary embolus. Minimal basal atelectasis or scarring. Mild coronary calcifications. Calcified granulomata in the lungs. Jaden West MD Objective Remarks GENERAL: No acute distress CARDIOVASCULAR: Regular rate and rhythm without murmurs, gallops, or rubs. No lower extremity edema RESPIRATORY: Breath sounds equal and clear bilaterally. Unlabored breathing GASTROINTESTINAL: Abdomen soft, non-tender, slightly distended. Bowel sounds positive Skin; left leg with bolus changes over site of cardiac catheter insertion with wound care dressing applied A/P Problem List: (1) Unstable angina ICD Code: I20.0 (2) NSTEMI (non-ST elevated myocardial infarction) ICD Code: I21.4 (3) Multi-vessel coronary artery stenosis ICD Code: I25.10 (4) Acute kidney injury ICD Code: N17.9 (5) Bilateral pulmonary infiltrates on chest x-ray ICD Code: R91.8 (6) ACS (acute coronary syndrome) ICD Code: I24.9 Assessment and Plan 61 y/o with no cardiac history presented to the ED for evaluation of chest pain: NSTEMI. Cardiac catheterization revealed multivessel CAD involving left main, LAD, diagonal and ramus. Status post CABG 3 vessels. Stable continue aspirin , Lipitor and amiodarone. Lopressor. A1c 5.8. LDL 172. Risk factor modification. Wd care. Leukocytosis likely reactive. Slightly improved. Incentive spirometry. Anxiety. Stable Postoperative anemia secondary to acute blood loss. No gross bleeding. Hemodynamically stable. JEAN s/p lasix. Nonoliguric. Avoid nephrotoxins. Chronic medical conditions of asthma, rheumatoid arthritis, gouty and osteoarthritis. Stable DVT prophylaxis pharmacological prophylaxis per CVt. Spoke with CTS, plan for discharge tomorrow if all is stable. Neil Payne MD Apr 14, 2017 15:09
--- NOTE | 2017-04-14 15:11 | PD.CAR.PN ---
CVT Progress Note Subjective/Hospital Course: 61/ male admitted to [place] ED, then later transferred to [facility] with NSTEMI, pt underwent cardiac cath by Dr Miller, found to have multivessel disease EF 50% PMH: OA, RA, Gout, chronic back pain ( hx of back surgery) 04/09/17 Denies chest pain. No complaints 04/10 CABG x 3 AEC to LAD - good, SVG to OM- fair, SVG to D1 - good, L EVH 70min pump run, 1400cc crystalloid , 1000cc cell saver, EBL 250cc extubated after surgery 04/11 up in chair, doing well , having some break through pain started on BB, on ASA, statin gentle diuresis stable for transfer to stepdown unit NSR 04/12 chest tubes removed without difficulty on room air continue pulm toileting dc IV pain med continue ambulation / creatinine up to 1.39 hold on diuresis today, recheck in am 04/13 pt increased swelling lower ext, with some blistering around EVH sites dressing to prior chest tube sites intact, no further bleeding will leave in place today no BM since surgery, add ducolax supp add BID diuretics , may need lula wraps to lower ext CS=XR noted bilateral infiltrates / check sputum / add levaquin 04/14 on room air , still has congested cough but improved continue po levaquin x 5 days + edema lower ext with blistering EVH sites ( allergy to silk tape ) remains NSR m, will reduce amiodarone dose continue to elevate legs eval for dc in am Objective: GENERAL: SKIN: Warm and dry. prevena to chest, incision intact left mid medial knee and medial calf/ some blistering of skin, ecchymosis left upper thigh HEAD: Normocephalic. EYES: No scleral icterus. No injection or drainage. NECK: Supple, trachea midline. No JVD or lymphadenopathy. CARDIOVASCULAR: Regular rate and rhythm without murmurs, gallops, or rubs. general edema RESPIRATORY: few crackles in bases Breath sounds equal bilaterally. No accessory muscle use. GASTROINTESTINAL: Abdomen soft, non-tender, nondistended. MUSCULOSKELETAL: No cyanosis, or edema. BACK: Nontender without obvious deformity. No CVA tenderness. Vital Signs Date Time Temp Pulse Resp B/P Pulse Ox O2 Delivery O2 Flow Rate FiO2 04/14/17 12:12 98.6 80 16 126/81 96 04/14/17 12:00 76 04/14/17 11:38 16 04/14/17 11:00 82 04/14/17 10:00 78 04/14/17 09:39 16 04/14/17 09:00 90 04/14/17 08:00 82 04/14/17 08:00 97.8 86 16 128/70 96 04/14/17 07:24 98 04/14/17 07:00 78 04/14/17 07:00 Room Air 04/14/17 06:20 82 04/14/17 05:43 18 04/14/17 04:03 83 04/14/17 03:04 97.2 93 18 112/65 93 04/14/17 03:01 78 04/14/17 01:00 92 04/14/17 00:00 82 04/13/17 23:21 97.6 18 18 111/63 99 04/13/17 23:00 85 04/13/17 22:00 82 04/13/17 21:00 106 04/13/17 21:00 97.8 101 20 107/59 97 04/13/17 20:10 96 04/13/17 20:00 88 04/13/17 19:30 Room Air 04/13/17 19:00 87 04/13/17 18:00 96 04/13/17 17:00 94 04/13/17 16:00 87 04/13/17 16:00 98.2 86 16 110/86 99 Labs: Laboratory Tests Test 04/14/17 05:36 White Blood Count 11.5 TH/MM3 (4.0-11.0) Red Blood Count 3.82 MIL/MM3 (4.50-5.90) Hemoglobin 10.6 GM/DL (13.0-17.0) Hematocrit 31.8 % (39.0-51.0) Mean Corpuscular Volume 83.3 FL (80.0-100.0) Mean Corpuscular Hemoglobin 27.8 PG (27.0-34.0) Mean Corpuscular Hemoglobin 33.4 % Concent (32.0-36.0) Red Cell Distribution Width 14.2 % (11.6-17.2) Platelet Count 166 TH/MM3 (150-450) Mean Platelet Volume 8.4 FL (7.0-11.0) Neutrophils (%) (Auto) 72.7 % (16.0-70.0) Lymphocytes (%) (Auto) 13.7 % (9.0-44.0) Monocytes (%) (Auto) 13.0 % (0.0-8.0) Eosinophils (%) (Auto) 0.5 % (0.0-4.0) Basophils (%) (Auto) 0.1 % (0.0-2.0) Neutrophils # (Auto) 8.4 TH/MM3 (1.8-7.7) Lymphocytes # (Auto) 1.6 TH/MM3 (1.0-4.8) Monocytes # (Auto) 1.5 TH/MM3 (0-0.9) Eosinophils # (Auto) 0.1 TH/MM3 (0-0.4) Basophils # (Auto) 0.0 TH/MM3 (0-0.2) CBC Comment DIFF FINAL Differential Comment Sodium Level 134 MEQ/L (136-145) Potassium Level 4.2 MEQ/L (3.5-5.1) Chloride Level 97 MEQ/L (98-107) Carbon Dioxide Level 30.6 MEQ/L (21.0-32.0) Anion Gap 6 MEQ/L (5-15) Blood Urea Nitrogen 21 MG/DL (7-18) Creatinine 1.36 MG/DL (0.60-1.30) Estimat Glomerular Filtration 53 ML/MIN (>89) Rate Random Glucose 96 MG/DL (74-106) Calcium Level 8.3 MG/DL (8.5-10.1) Magnesium Level 2.5 MG/DL (1.5-2.5) Result Diagram: 04/14/17 0536 04/14/17 0536 Telemetry: NSR (1) ACS (acute coronary syndrome) (2) NSTEMI (non-ST elevated myocardial infarction) (3) S/P CABG x 3 Plan: ASA, statin , BB decrease amiodarone / dc on 200mg bid x 2 weeks continue diuresis elevate legs lula wraps to legs during day on 4 hrs off 1 hr then home with BEATRIZ hose + BM eval for dc in am pain control OOB, ambulate (4) Multi-vessel coronary artery stenosis (5) Arthritis Plan: pain control (6) Acute kidney injury Plan: avoid nephrotoxins, recheck in am / indices improved (7) Bilateral pulmonary infiltrates on chest x-ray Plan: pulm toileting continue gely santos check sputum, add Mell Domingo Apr 14, 2017 15:11
[2017-04-14] MEDS: ATORVASTATIN 20 MG TAB PO SCH (20:00)
[2017-04-14] MEDS: SENNOSIDES 8.6 MG TAB PO SCH (20:01)
[2017-04-15] VITALS (15 sets, daily range): BP systolic 112–125; BP diastolic 70–73; PULSE 71–94; RESP 16–20; TEMP 97.8–98.4; O2SAT 95–98
[2017-04-15] MEDS: oxyCODONE/ACETAMINOPHEN 5 MG/325 MG TAB PO PRN ×2 (01:30→09:34)
[2017-04-15] MEDS: PANTOPRAZOLE SOD 40 MG DELAYED RELEASE TAB PO SCH (05:57)
[2017-04-15] MEDS: ACETAMIN 325 MG/BUTALBITAL 50 MG/CAFFEINE 40 MG TAB PO PRN (06:00)
[2017-04-15] MEDS: INSULIN ASPART SUPPLEMENTAL SCALE SQ SCH (06:02)
[2017-04-15] MEDS: MAGNESIUM HYDROXIDE SUSP 30 ML CUP PO SCH (09:00)
[2017-04-15] MEDS: POLYETHYLENE GLYCOL 17 GM PKG PO SCH (09:00)
[2017-04-15] MEDS: DOCUSATE SODIUM 100 MG CAP PO SCH (09:00)
[2017-04-15] MEDS ORDERED: LEVOFLOXACIN 500 MG TAB PO SCH (09:00)
[2017-04-15] MEDS ORDERED: FUROSEMIDE 40 MG/4 ML VIAL IV PUSH SCH (09:00)
[2017-04-15] MEDS ORDERED: POTASSIUM CHLORIDE 10 MEQ CAP PO SCH (09:00)
[2017-04-15] MEDS: RESP: ALBUTEROL 2.5 MG/IPRATROPIUM 0.5 MG NEB (SCH) NEB (09:14)
[2017-04-15] MEDS: ASPIRIN 81 MG CHEW TAB PO SCH (09:33)
[2017-04-15] MEDS: MULTIVITAMINS/MINERALS THERAPEUTIC TAB PO SCH (09:33)
[2017-04-15] MEDS: AMIODARONE 200 MG TAB PO SCH (09:33)
[2017-04-15] MEDS: METOPROLOL TARTRATE 25 MG TAB PO SCH (09:33)
[2017-04-15] MEDS: SODIUM CHLORIDE 0.9% FLUSH 10 ML FLUSH IV FLUSH SCH (09:34)
[2017-04-15 09:40] LABS: HEMATOCRIT 31.1 % (39.0-51.0); MEAN CELL VOLUME 84.2 FL (80.0-100.0); MEAN CORPUSCULAR HGB CONC 33.3 % (32.0-36.0); PLATELET COUNT 234 TH/MM3 (150-450); RED CELL DISTRIBUTION WIDTH 14.4 % (11.6-17.2); REVIEW FLAG FINAL; WHITE BLOOD COUNT 8.8 TH/MM3 (4.0-11.0)
--- NOTE | 2017-04-15 09:46 | PD.CAR.PN ---
CVT Progress Note Subjective/Hospital Course: 61/ male admitted to [place] ED, then later transferred to [facility] with NSTEMI, pt underwent cardiac cath by Dr Miller, found to have multivessel disease EF 50% PMH: OA, RA, Gout, chronic back pain ( hx of back surgery) 04/09/17 Denies chest pain. No complaints 04/10 CABG x 3 ACE to LAD - good, SVG to OM- fair, SVG to D1 - good, L EVH 70min pump run, 1400cc crystalloid , 1000cc cell saver, EBL 250cc extubated after surgery 04/11 up in chair, doing well , having some break through pain started on BB, on ASA, statin gentle diuresis stable for transfer to stepdown unit NSR 04/12 chest tubes removed without difficulty on room air continue pulm toileting dc IV pain med continue ambulation / creatinine up to 1.39 hold on diuresis today, recheck in am 04/13 pt increased swelling lower ext, with some blistering around EVH sites dressing to prior chest tube sites intact, no further bleeding will leave in place today no BM since surgery, add ducolax supp add BID diuretics , may need lula wraps to lower ext CS=XR noted bilateral infiltrates / check sputum / add levaquin 04/14 on room air , still has congested cough but improved continue po levaquin x 5 days + edema lower ext with blistering EVH sites ( allergy to silk tape ) remains NSR m, will reduce amiodarone dose continue to elevate legs eval for dc in am 04/15 Doing well Discharge home Objective: Vital Signs Date Time Temp Pulse Resp B/P Pulse Ox O2 Delivery O2 Flow Rate FiO2 04/15/17 09:16 95 21 04/15/17 07:52 98.4 76 18 117/70 97 04/15/17 06:03 75 04/15/17 05:47 71 04/15/17 04:26 97.8 76 16 117/70 98 04/15/17 04:26 77 04/15/17 03:06 74 04/15/17 02:22 75 04/15/17 01:00 76 04/15/17 00:20 98.1 81 20 112/73 95 04/15/17 00:20 72 04/14/17 23:30 80 04/14/17 22:00 86 04/14/17 21:00 90 04/14/17 20:15 98.4 88 18 123/76 99 04/14/17 20:15 90 04/14/17 19:59 92 21 04/14/17 19:40 99 Room Air 04/14/17 19:00 88 04/14/17 18:00 90 04/14/17 17:58 16 04/14/17 17:00 88 04/14/17 16:01 98.2 65 16 122/69 98 04/14/17 16:00 78 04/14/17 15:00 94 04/14/17 14:00 96 04/14/17 13:00 74 04/14/17 12:12 98.6 80 16 126/81 96 04/14/17 12:00 76 04/14/17 11:38 16 04/14/17 11:00 82 04/14/17 10:00 78 Result Diagram: 04/14/17 0536 04/14/17 0536 (1) ACS (acute coronary syndrome) (2) NSTEMI (non-ST elevated myocardial infarction) (3) S/P CABG x 3 Plan: ASA, statin , BB decrease amiodarone / dc on 200mg bid x 2 weeks continue diuresis elevate legs lula wraps to legs during day on 4 hrs off 1 hr then home with BEATRIZ hose + BM eval for dc in am pain control OOB, ambulate (4) Multi-vessel coronary artery stenosis (5) Arthritis Plan: pain control (6) Acute kidney injury Plan: avoid nephrotoxins, recheck in am / indices improved (7) Bilateral pulmonary infiltrates on chest x-ray Plan: pulm toileting continue nebs ezpap , acapella check sputum, add Hunter Ann MD Apr 15, 2017 09:45
--- NOTE | 2017-04-15 12:39 | HHI.DS ---
Discharge Summary Admission Date Apr 05, 2017 at 22:39 Discharge Date: Apr 15, 2017 Admitting Diagnosis Acute Cornoary Syndrome (1) NSTEMI (non-ST elevated myocardial infarction) ICD Code: I21.4 Diagnosis: Principal Procedures Cardiac catheterization, CABG Brief History - From Admission Written by Joann Neumann, acting as scribe for Dr. Archibald on 04/06/17 at 02:40. The patient was transferred from [place] for management of NSTEMI. Symptoms: reports severe chest pain: felt like "my chest was filled up with air ", radiated down both arms and up left side of neck and into jaw. Accompanied by palpitations, diaphoresis, headache, and nausea without vomiting. The patient said he felt like he was "smothered". He has been having chest pain at least once a day for about 1 - 2 weeks but it has progressively worsened. He was sitting down today when symptoms started. He said he felt near-syncopal today when pain was occurring. The patient recently drove to [place] but stopped every few hours to walk around. Denies recent fever, nausea, vomiting, diarrhea, black or red stool, hematuria, or dysuria. CBC/BMP: 04/15/17 0743 04/14/17 0536 Significant Findings Laboratory Tests Test 04/13/17 04/14/17 04/15/17 04:55 05:36 07:43 White Blood Count 14.7 TH/MM3 11.5 TH/MM3 (4.0-11.0) (4.0-11.0) Red Blood Count 3.99 MIL/MM3 3.82 MIL/MM3 3.70 MIL/MM3 (4.50-5.90) (4.50-5.90) (4.50-5.90) Hemoglobin 11.2 GM/DL 10.6 GM/DL 10.4 GM/DL (13.0-17.0) (13.0-17.0) (13.0-17.0) Hematocrit 33.4 % 31.8 % 31.1 % (39.0-51.0) (39.0-51.0) (39.0-51.0) Platelet Count 132 TH/MM3 (150-450) Neutrophils (%) (Auto) 76.9 % 72.7 % (16.0-70.0) (16.0-70.0) Monocytes (%) (Auto) 10.1 % 13.0 % (0.0-8.0) (0.0-8.0) Neutrophils # (Auto) 11.3 TH/MM3 8.4 TH/MM3 (1.8-7.7) (1.8-7.7) Monocytes # (Auto) 1.5 TH/MM3 1.5 TH/MM3 (0-0.9) (0-0.9) Sodium Level 135 MEQ/L 134 MEQ/L (136-145) (136-145) Blood Urea Nitrogen 21 MG/DL (7-18) 21 MG/DL (7-18) Estimat Glomerular Filtration 63 ML/MIN (>89) 53 ML/MIN (>89) Rate Random Glucose 146 MG/DL (74-106) Calcium Level 8.1 MG/DL 8.3 MG/DL (8.5-10.1) (8.5-10.1) Chloride Level 97 MEQ/L (98-107) Creatinine 1.36 MG/DL (0.60-1.30) PE at Discharge GENERAL: Well-developed, obese in no distress on room air SKin: Warm and dry no rash EYES: Pupils equal and round. No scleral icterus. No injection or drainage. CARDIOVASCULAR: Regular rate and rhythm. abd: soft, NT, BS+ RESPIRATORY: BS CTA x 2 MUSCULOSKELETAL: Extremities without clubbing, cyanosis with dry and clean dressing left lower extremitys. mild bilateral lower extremity edema Hospital Course 61/ male admitted to [place] ED, then later transferred to [facility] with NSTEMI, pt underwent cardiac cath by Dr Miller, found to have multivessel disease EF 50%. Underwent CABG x 3 ACE to LAD - good, SVG to OM- fair, SVG to D1 - good, L EVH. He had his chest tubes removed w/o difficulty. Had been started on Levaquin due to infiltrates seen on CXR. Also started on amiodarone by CTS, cleared for discharge. Patient has met maximum benefit from hospitalization and is clinically stable for discharge. Pt Condition on Discharge: Stable Discharge Disposition: Disch w/ Home Health Serv Discharge Time: <= 30 minutes Discharge Instructions DIET: Follow Instructions for: Heart Healthy Diet Activities you can perform: Weight Bearing as Ankita Follow up Referrals: Cardiology - 04/14/17 with Jeremias Miller MD PCP Follow-up - 04/14/17 with [facility] with Prisca Norris MD New Orders: BASIC METABOLIC PROF - 2 Weeks CBC NO DIFF - 2 Weeks X-RAY CHEST PA & LAT - 2 Weeks New Medications: Commode 3-in-1 (Commode 3-in-1) 1 Mis Mis 1 EA .ROUTE DIRECTED #1 Ref 0 EA Furosemide (Lasix) 40 Mg Tab 40 MG PO DAILY edema #14 Ref 0 TAB Amiodarone (Amiodarone) 200 Mg Tab 200 MG PO Q12HR heart rhythm #28 Ref 0 TAB Aspirin (Aspirin Low Strength) 81 Mg Chew 81 MG PO DAILY Blood Clot Prevention #100 Ref 2 EA Atorvastatin (Atorvastatin) 80 Mg Tab 80 MG PO HS Cholesterol Management #30 TAB Atorvastatin (Atorvastatin) 20 Mg Tab 20 MG PO HS Cholesterol Management #30 Ref 2 TAB Docusate Sodium (Dok) 100 Mg Cap 100 MG PO BID Constipation #60 Ref 0 CAP Levofloxacin (Levaquin) 500 Mg Tablet 500 MG PO DAILY bronchitis #5 Ref 0 TAB Metoprolol Tartrate (Metoprolol Tartrate) 25 Mg Tab 25 MG PO BID Blood Pressure Management #60 Ref 3 TAB Multiple Vitamins W/ Minerals (Thera M Plus) 1 Tab 1 TAB PO DAILY multi vitamin #30 Ref 2 TAB Oxycodone-Acetaminophen (Oxycodone-Acetaminophen) 5-325 mg Tab 1 TAB PO Q4HR PRN PAIN SCALE 1 TO 5 #40 Ref 0 TAB Potassium Chloride ER (Potassium Chloride ER) 10 Meq Cap 10 MEQ PO DAILY take with lasix #14 Ref 0 CAP Neil Payne MD Apr 15, 2017 12:39
--- NOTE | 2017-04-21 10:19 | RSPPFT ---
DATE OF PROCEDURE: 04/07/17 COMMENTS: Spirometry demonstrates an FEV1 of 1.8 at 52% of predicted, FVC of 2.4 at 57%, FEF 25-75 is 38%. Flow volume loops suggest an obstructive pattern. IMPRESSION: 1. Mild to moderate obstructive disease. 2. Additional mild restrictive disease.
--- NOTE | 2017-04-22 17:53 | ECHRPT ---
Indication: [place], PRE OHS CONCLUSIONS technically limited study Normal left ventricular size. Mild concentric left ventricular hypertrophy. The left ventricular systolic function is normal with an estimated ejection fraction in the range of 55-60%. No regional wall motion abnormalities are present. Doppler parameters are consistent with impaired left ventricular relaxtion (grade 1 diastolic dysfun ction). The right atrial size is mildly dilated. Trace mitral valve regurgitation. Aortic valve sclerosis is present. No aortic valve regurgitation. No aortic valve stenosis. There is trace tricuspid valve regurgitation. Normal estimated pulmonary pressures. The pulmonary valve is not well visualized. No pulmonary valve regurgitation. No valvular pulmonary stenosis. BP: 137 / 80 HR: 68 Rhythm: Sinus MEASUREMENTS (Male / Female) Normal Values Technical Quality:Technically difficult study 2D ECHO LV Diastolic Diameter PLAX 4.7 cm 4.2 - 5.9 / 3.9 - 5.3 cm LV Systolic Diameter PLAX 3.2 cm IVS Diastolic Thickness 1.1 cm 0.6 - 1.0 / 0.6 - 0.9 cm LVPW Diastolic Thickness 1.1 cm 0.6 - 1.0 / 0.6 - 0.9 cm LV Relative Wall Thickness 0.5 LVOT Diameter 2.7 cm Aortic Root Diameter 3.1 cm LA Systolic Diameter LX 3.1 cm 3.0 - 4.0 / 2.7 - 3.8 cm M-MODE AV Cusp Separation MM 2.3 cm DOPPLER AV Peak Velocity 157.0 cm/s AV Peak Gradient 9.9 mmHg AV Mean Gradient 6.0 mmHg AV Velocity Time Integral 31.4 cm LVOT Peak Velocity 123.0 cm/s LVOT Peak Gradient 6.1 mmHg LVOT Velocity Time Integral 27.4 cm LVOT Cardiac Index 4022.2 cm/minm AV Area Cont Eq vti 5.0 cm AV Area Cont Eq pk 4.5 cm Mitral E Point Velocity 80.9 cm/s Mitral A Point Velocity 94.8 cm/s Mitral E to A Ratio 0.9 LV E' Lateral Velocity 9.6 cm/s Mitral E to LV E' Lateral Ratio 8.5 LV E' Septal Velocity 8.7 cm/s Mitral E to LV E' Septal Ratio 9.3 TR Peak Velocity 194.0 cm/s TR Peak Gradient 15.1 mmHg PV Peak Velocity 69.2 cm/s PV Peak Gradient 1.9 mmHg FINDINGS LEFT VENTRICLE Normal left ventricular size. Mild concentric left ventricular hypertrophy. The left ventricular systolic function is normal with an estimated ejection fraction in the range of 55-60%. No regional wall motion abnormalities are present. Doppler parameters are consistent with impaired left ventricular relaxtion (grade 1 diastolic dysfun ction). RIGHT VENTRICLE Normal right ventricular size and systolic function. LEFT ATRIUM The left atrial size is normal. RIGHT ATRIUM The right atrial size is mildly dilated. ATRIAL SEPTUM Normal atrial septal thickness without atrial level shunting by limited color doppler interrogation. AORTA The aortic root and proximal ascending aorta are normal in size on limited imaging. MITRAL VALVE Structurally normal mitral valve. Trace mitral valve regurgitation. AORTIC VALVE Aortic valve sclerosis is present. No aortic valve regurgitation. No aortic valve stenosis. TRICUSPID VALVE Structurally normal tricuspid valve. There is trace tricuspid valve regurgitation. Normal estimated pulmonary pressures. PULMONARY VALVE The pulmonary valve is not well visualized. No pulmonary valve regurgitation. No valvular pulmonary stenosis. VESSELS The inferior vena cava is normal in size. PERICARDIUM No pericardial effusion. Kemal Joshi MD, FACC, [facility] [place] (Electronically Signed) Final Date:22 April 2017 17:53
== END 2017-04-15 12:55 | disposition home health service (06) | DRG 234 ==
LOC: PHED 18:11 → PHEDA 22:39 → N06A 04-06 01:50 → N03B 04-06 13:16 → HCIN 04-06 18:26 → HCIS 04-10 08:35 → HCVR 04-10 12:20 → HCIN 04-11 13:56
PROVIDERS: ADMIT Internal Medicine; ATTEND Hospitalist
PROC: 4A023N7 Measurement of Cardiac Sampling and Pressure, Left Heart, Percutaneous Approach (ICD-10-PCS; 2017-04-06)
PROC: B2111ZZ Fluoroscopy of Multiple Coronary Arteries using Low Osmolar Contrast (ICD-10-PCS; 2017-04-06)
PROC: B2151ZZ Fluoroscopy of Left Heart using Low Osmolar Contrast (ICD-10-PCS; 2017-04-06)
PROC: B31N1ZZ Fluoroscopy of Other Upper Arteries using Low Osmolar Contrast (ICD-10-PCS; 2017-04-06)
PROC: 021109W Bypass Coronary Artery, Two Arteries from Aorta with Autologous Venous Tissue, Open Approach (ICD-10-PCS; 2017-04-10)
PROC: 06BQ4ZZ Excision of Left Saphenous Vein, Percutaneous Endoscopic Approach (ICD-10-PCS; 2017-04-10)
PROC: 5A1221Z Performance of Cardiac Output, Continuous (ICD-10-PCS; 2017-04-10)
PROC: 02100Z9 Bypass Coronary Artery, One Artery from Left Internal Mammary, Open Approach (ICD-10-PCS; principal; 2017-04-10 07:00)
DX: I21.4 Non-ST elevation (NSTEMI) myocardial infarction (principal); N17.9 Acute kidney failure, unspecified; D62 Acute posthemorrhagic anemia; J98.11 Atelectasis; M10.9 Gout, unspecified; F41.9 Anxiety disorder, unspecified; J45.909 Unspecified asthma, uncomplicated; M06.9 Rheumatoid arthritis, unspecified; I25.110 Atherosclerotic heart disease of native coronary artery with unstable angina pectoris; M19.90 Unspecified osteoarthritis, unspecified site; G44.40 Drug-induced headache, not elsewhere classified, not intractable; T46.3X5A Adverse effect of coronary vasodilators, initial encounter; D72.829 Elevated white blood cell count, unspecified; K59.00 Constipation, unspecified; R60.0 Localized edema; R91.8 Other nonspecific abnormal finding of lung field; R05 Cough; Z88.5 Allergy status to narcotic agent
CPT/HCPCS: 70450; 71010; 71275; 76937; 80048; 80053; 80061; 81001; 82550; 82552; 82948; 83036; 83690; 83735; 84484; 85002; 85014; 85025; 85027; 85379; 85610; 85730; 86850; 86900; 86901; 86920; 87070; 87205; 87641; 93005; 93306; 93458; 93880; 93970; 93998; 94003; 94010; 94150; 94640; 94664; 94667; 94668; 96365; 96375; C1760; C1769; C1893; G0269; J0131; J0171; J0461; J0690; J1644; J1815; J1885; J1940; J1956; J2060; J2150; J2212; J2250; J2270; J2370; J2405; J2440; J2720; J2930; J3010; J3370; J3480; J7030; J7040; P9045; P9047; Q9967

== ENCOUNTER 2017-10-20 08:01 | Emergency (ER) | payer MEDICARE ==
[~2017-10-20] VITALS: Ht 177.8 cm; Wt 80.0 kg
[~2017-10-20 08:01] MED LIST changes: +AMIO200T PO; -AMOX875 PO; +ASPI81CH25 PO; +ATOR20TA15 PO; +ATOR80TA45 PO; +COMMODE 3-IN-11 MIS; -CYCL5TAB PO; +DOCU1CAP39 PO; +FURO1TAB60 PO; +LEVA500T33 PO; +METO25TA3 PO; +OXYC1TAB63 PO; +POTA10CA PO; +THERM PO
[2017-10-20 08:03] VITALS: BP_SYST 136; BP_SYST 141; BP_DIAS 71; BP_DIAS 82; PULSE 61; RESP 18; TEMP 97.7; O2SAT 98
[2017-10-20 08:10] VITALS: BP 141/71; PULSE 59
[2017-10-20] MEDS ORDERED: SODIUM CHLORIDE 0.9% FLUSH 10 ML FLUSH IVF PRN (08:15)
[2017-10-20] MEDS ORDERED: ASPIRIN 81 MG CHEW TAB PO ONE (08:15)
[2017-10-20 08:17] VITALS: BP 135/70; PULSE 55; RESP 21; O2SAT 99
[2017-10-20 08:18] VITALS: BP 137/70; PULSE 55; RESP 21; O2SAT 99
--- NOTE | 2017-10-20 08:30 | PD ---
HPI Chief Complaint: Chest Pain Time Seen by Provider: 08:03 Travel History International Travel<30 days: No Contact w/Intl Traveler<30days: No Traveled to known affect area: No History of Present Illness HPI This is a 62-year-old male with history coronary artery disease, hypertension, hyperlipidemia, who presents today with complaints of chest pain. Patient states it started earlier this morning. He reports it is intermittent and sharp in the left upper chest. He states it is worse with inspiration. There is no reported cough or shortness of breath. He is concerned that this may be recurring heart attack. Patient states he had a heart attack in March and ended up with a triple bypass. He appears very anxious. He denies any nausea or diaphoresis. He denies any pressure. He states that the pain does not radiate. He states it is a 8-9 out of 10 on pain scale when it hits. PFSH Past Medical History Hx Anticoagulant Therapy: No Arthritis: Yes Asthma: Yes Autoimmune Disease: Yes Depression: No Heart Rhythm Problems: No Cancer: No Cardiac Catheterization: Yes Cardiovascular Problems: Yes (HTN, CABG X 3 ) High Cholesterol: No Chest Pain: Yes Congestive Heart Failure: No COPD: No Cerebrovascular Accident: No Coronary Artery Disease: Yes Diabetes: No Diminished Hearing: No Endocrine: No GERD: Yes Genitourinary: No Hepatitis: No Hiatal Hernia: No Heparin Induced Thrombocytopen: No Hypertension: No Immune Disorder: No Implanted Vascular Access Dvce: Yes Musculoskeletal: Yes (CHRONIC BACK PAIN ) Neurologic: No Psychiatric: No Respiratory: Yes (BRONCHITIS ) Migraines: No Seizures: No Sleep Apnea: No Thyroid Disease: No Ulcer: No Tetanus Vaccination: < 5 Years Influenza Vaccination: No PNEUMOCCOCAL Vaccine (Year): 2 Past Surgical History Abdominal Surgery: Yes (GB) Body Medical Devices: PLATES AND SCREWS IN NECK Cardiac Surgery: No Cholecystectomy: Yes (09/2011) Coronary Artery Bypass Graft: Yes (03/2017) Ear Surgery: No Endocrine Surgery: No Eye Surgery: No Genitourinary Surgery: No Gynecologic Surgery: No Neurologic Surgery: No Oral Surgery: No Pacemaker: No Thoracic Surgery: No Other Surgery: Yes (SEPTOPLASTY WITH BX) Social History Alcohol Use: No Tobacco Use: No Substance Use: No Allergies-Medications (Allergen,Severity, Reaction): Coded Allergies: codeine (Unverified Allergy, Severe, TONGUE SWELLING, 10/20/17) Uncoded Allergies: Silk Tape (Adverse Reaction, Mild, Rash, 04/14/17) Blistering Reported Meds & Prescriptions Reported Meds & Active Scripts Active Thera M Plus (Multivitamins/Minerals Therapeutic) 1 Tab 1 Tab PO DAILY Metoprolol Tartrate 25 Mg Tab 25 Mg PO BID Aspirin Low Strength (Aspirin) 81 Mg Chew 81 Mg PO DAILY Atorvastatin (Atorvastatin Calcium) 80 Mg Tab 80 Mg PO HS Review of Systems Except as stated in HPI: all other systems reviewed are Neg General / Constitutional: No: Fever, Chills HENT: No: Headaches, Lightheadedness Cardiovascular: Positive: Chest Pain or Discomfort (Sharp left-sided), No: Palpitations Respiratory: No: Cough, Shortness of Breath Gastrointestinal: No: Nausea, Vomiting, Abdominal Pain Musculoskeletal: No: Weakness, Pain Skin: No Rash, No Lesions Neurologic: No: Weakness, Dizziness, Headache Psychiatric: Positive: Anxiety, No: Depression, Substance Abuse Physical Exam Narrative GENERAL: Well-developed well-nourished male in no acute respiratory distress. Patient does appear anxious. SKIN: Focused skin assessment warm/dry. HEAD: Atraumatic. Normocephalic. EYES: Pupils equal and round. No scleral icterus. No injection or drainage. ENT: No nasal bleeding or discharge. Mucous membranes pink and moist. NECK: Trachea midline. No JVD. CARDIOVASCULAR: Sinus bradycardia with a rate in the 50s. No murmur appreciated. RESPIRATORY: No accessory muscle use. Clear to auscultation. Breath sounds equal bilaterally. GASTROINTESTINAL: Abdomen soft, non-tender, nondistended. Hepatic and splenic margins not palpable. MUSCULOSKELETAL: No obvious deformities. No clubbing. No cyanosis. Trace pretibial edema bilaterally. NEUROLOGICAL: Awake and alert. No obvious cranial nerve deficits. Motor grossly within normal limits. Normal speech. Data Data Last Documented VS Vital Signs Date Time Temp Pulse Resp B/P (MAP) Pulse Ox O2 Delivery O2 Flow Rate FiO2 10/20/17 10:00 50 19 139/70 (93) 98 Nasal Cannula 2.00 10/20/17 08:03 97.7 Orders Orders Electrocardiogram (10/20/17 08:03) Ckmb (Isoenzyme) Profile (10/20/17 08:03) Complete Blood Count With Diff (10/20/17 08:03) Comprehensive Metabolic Panel (10/20/17 08:03) Magnesium (Mg) (10/20/17 08:03) Prothrombin Time / Inr (Pt) (10/20/17 08:03) Act Partial Throm Time (Ptt) (10/20/17 08:03) Troponin I (10/20/17 08:03) Ecg Monitoring (10/20/17 08:03) Bilateral Bp Monitoring (10/20/17 08:03) Iv Access Insert/Monitor (10/20/17 08:03) Oximetry (10/20/17 08:03) Oxygen Administration (10/20/17 08:03) Aspirin Chew (Aspirin Chew) (10/20/17 08:15) Sodium Chloride 0.9% Flush (Ns Flush) (10/20/17 08:15) Chest, Pa & Lat (10/20/17 08:03) CKMB (10/20/17 08:10) CKMB% (10/20/17 08:10) Labs Laboratory Tests Test 10/20/17 08:10 White Blood Count 7.7 TH/MM3 Red Blood Count 5.75 MIL/MM3 Hemoglobin 15.7 GM/DL Hematocrit 46.0 % Mean Corpuscular Volume 79.9 FL Mean Corpuscular Hemoglobin 27.3 PG Mean Corpuscular Hemoglobin Concent 34.1 % Red Cell Distribution Width 15.7 % Platelet Count 198 TH/MM3 Mean Platelet Volume 7.4 FL Neutrophils (%) (Auto) 66.9 % Lymphocytes (%) (Auto) 23.9 % Monocytes (%) (Auto) 7.4 % Eosinophils (%) (Auto) 1.4 % Basophils (%) (Auto) 0.4 % Neutrophils # (Auto) 5.2 TH/MM3 Lymphocytes # (Auto) 1.8 TH/MM3 Monocytes # (Auto) 0.6 TH/MM3 Eosinophils # (Auto) 0.1 TH/MM3 Basophils # (Auto) 0.0 TH/MM3 CBC Comment DIFF FINAL Differential Comment Prothrombin Time 10.6 SEC Prothromb Time International Ratio 1.0 RATIO Activated Partial Thromboplast Time 24.2 SEC Blood Urea Nitrogen 18 MG/DL Creatinine 1.19 MG/DL Random Glucose 84 MG/DL Total Protein 7.8 GM/DL Albumin 3.6 GM/DL Calcium Level 8.8 MG/DL Magnesium Level 2.2 MG/DL Alkaline Phosphatase 115 U/L Aspartate Amino Transf (AST/SGOT) 32 U/L Alanine Aminotransferase (ALT/SGPT) 34 U/L Total Bilirubin 0.7 MG/DL Sodium Level 137 MEQ/L Potassium Level 4.6 MEQ/L Chloride Level 104 MEQ/L Carbon Dioxide Level 28.5 MEQ/L Anion Gap 5 MEQ/L Estimat Glomerular Filtration Rate 62 ML/MIN Total Creatine Kinase 174 U/L Creatine Kinase MB 2.7 NG/ML Troponin I LESS THAN 0.02 NG/ML MDM Medical Decision Making Medical Screen Exam Complete: Yes Emergency Medical Condition: Yes Differential Diagnosis ACS versus musculoskeletal pain versus pleurisy Narrative Course 62-year-old male who status post coronary artery bypass graft in March 2017, presents today with complaints of intermittent sharp chest pain. Patient states it is worse when he moves around or takes a deep breath. Patient's EKG shows no evidence of acute ST elevation or depression. There is an old inferior wall IA. Cardiac enzymes are within normal limits. My recommendation was that that we place him in the chest pain center for rule out protocol. Patient states he does not wish to stay. He was signed out AGAINST MEDICAL ADVICE. I have informed him that he can return at any time. He is instructed to follow-up with his primary care physician as needed. AMA: The risks of leaving against medical advice without further evaluation treatment were discussed with the patient. These risks include cardiac dysfunction, cardiac dysrhythmia, possible heart attack, possible stroke or . The patient indicated understanding of these risks and appeared to have the capacity to make this decision. Diagnosis Primary Impression: Atypical chest pain Additional Impression: Coronary artery disease Disposition: AGAINST MEDICAL ADVICE Condition: Stable Jd Orozco MD Oct 20, 2017 08:30
[2017-10-20 08:32] LABS: AUTOMATED NEUTROPHIL # 5.2 TH/MM3 (1.8-7.7); BASOPHIL % 0.4 % (0.0-2.0); EOSINOPHIL # 0.1 TH/MM3 (0-0.4); EOSINOPHIL % 1.4 % (0.0-4.0); HEMOGLOBIN 15.7 GM/DL (13.0-17.0); LYMPH % 23.9 % (9.0-44.0); LYMPHOCYTE # 1.8 TH/MM3 (1.0-4.8); MEAN CELL VOLUME 79.9 FL (80.0-100.0); MEAN CORPUSCULAR HEMOGLOBIN 27.3 PG (27.0-34.0); MEAN CORPUSCULAR HGB CONC 34.1 % (32.0-36.0); MEAN PLATELET VOLUME 7.4 FL (7.0-11.0); MONO % 7.4 % (0.0-8.0); MONOCYTE # 0.6 TH/MM3 (0-0.9); NEUT % 66.9 % (16.0-70.0); PLATELET COUNT 198 TH/MM3 (150-450); RED BLOOD COUNT 5.75 MIL/MM3 (4.50-5.90); RED CELL DISTRIBUTION WIDTH 15.7 % (11.6-17.2); WHITE BLOOD COUNT 7.7 TH/MM3 (4.0-11.0)
--- NOTE | 2017-10-20 08:35 | RADRPT ---
EXAM DATE/TIME: 10/20/2017 08:25 [facility] COMPARISON: CHEST SINGLE AP, April 13, 2017, 5:13. INDICATIONS : Chest pain. MEDICAL HISTORY : Hypertension. Gastroesophageal reflux disease. Arthritis. Asthma. SURGICAL HISTORY : Cholecystectomy. CABG. ENCOUNTER: Initial ACUITY: 2 weeks PAIN SCORE: 8/10 LOCATION: Left upper chest FINDINGS: The patient is post median sternotomy. The heart is normal in size. The pulmonary parenchyma is clear . The visualized bony structures are grossly intact. The appearance of the parenchyma is improved compared to previous study dated 04/13/17. There is of at electasis in the right upper lobe and left midlung have resolved. CONCLUSION: 1. The atelectasis seen on previous study of 04/13/17 has resolved. 2. The lungs are clear. 3. The patient is post median sternotomy. See Arias MD on October 20, 2017 at 8:33 Board Certified Radiologist. This report was verified electronically.
[2017-10-20 08:41] LABS: PROTHROMBIN TIME - PATIENT 10.6 SEC (9.8-11.6)
[2017-10-20 08:51] LABS: ALKALINE PHOSPHATASE 115 U/L (45-117); TOTAL BILIRUBIN ADULT 0.7 MG/DL (0.2-1.0); TOTAL PROTEIN 7.8 GM/DL (6.4-8.2); TROPONIN I LESS THAN 0.02 NG/ML (0.02-0.05)
[2017-10-20 08:52] LABS: ALBUMIN 3.6 GM/DL (3.4-5.0); ALT (GPT) 34 U/L (12-78); AST (GOT) 32 U/L (15-37); BICARBONATE 28.5 MEQ/L (21.0-32.0); BLOOD UREA NITROGEN 18 MG/DL (7-18); CALCIUM 8.8 MG/DL (8.5-10.1); CHLORIDE 104 MEQ/L (98-107); CREATININE 1.19 MG/DL (0.60-1.30); GLOMERULAR FILTRATION RATE 62 ML/MIN (>89); GLUCOSE,RANDOM 84 MG/DL (74-106); MAGNESIUM 2.2 MG/DL (1.5-2.5); SODIUM (NA) 137 MEQ/L (136-145)
[2017-10-20 09:00] VITALS: BP 145/76; PULSE 54; RESP 18; O2SAT 98
[2017-10-20 10:00] VITALS: BP 139/70; PULSE 50; RESP 19; O2SAT 98
--- NOTE | 2017-10-20 14:38 | EKG ---
Date Performed: 10/20/2017 Time Performed: 08:06:36 PTAGE: 62 years EKG: SINUS BRADYCARDIA LOW QRS VOLTAGE IN PRECORDIAL LEADS INFERIOR MYOCARDIAL INFARCTION ABNORM AL ECG INTERPRETATION BASED ON A DEFAULT AGE OF 40 YEARS PREVIOUS TRACING : 04/11/2017 04.28 Since the prior tracing, there has been no significan t change DOCTOR: Dina Verde Interpretating Date/Time 10/20/2017 14:35:15
== END 2017-10-20 11:29 | disposition left against medical advice (07) ==
LOC: NEPE 08:01
DX: R07.89 Other chest pain (principal); R00.1 Bradycardia, unspecified; R94.31 Abnormal electrocardiogram [ECG] [EKG]; I25.10 Atherosclerotic heart disease of native coronary artery without angina pectoris; I10 Essential (primary) hypertension; E78.5 Hyperlipidemia, unspecified; M19.90 Unspecified osteoarthritis, unspecified site; J45.909 Unspecified asthma, uncomplicated; Z95.1 Presence of aortocoronary bypass graft
CPT/HCPCS: 71046; 80053; 82550; 82552; 83735; 84484; 85025; 85610; 85730; 93005; 99285